=== PATIENT | female | born 1945 | race Caucasian/White ===

== ENCOUNTER 2018-02-10 14:10 | Inpatient (IN) | payer MEDICARE, SELFPAY ==
[2018-02-10] VITALS (10 sets, daily range): BP systolic 175–208; BP diastolic 51–86; PULSE 64–96; RESP 17–25; TEMP 36.6–36.8; O2SAT 96–100; BMI 29.1; BMI 29.4; BMI 29.5
--- NOTE | 2018-02-10 14:25 | EKG12_ITS ---
Test Reason : FALL Blood Pressure : / mmHG Vent. Rate : 082 BPM Atrial Rate : 082 BPM P-R Int : 176 ms QRS Dur : 086 ms QT Int : 378 ms P-R-T Axes : 040 -06 057 degrees QTc Int : 441 ms Normal sinus rhythm Nonspecific ST abnormality Abnormal ECG Confirmed by GRAEME MOISE, ROSELYN ([id number]), commissioning editor TOMY RIGGS ([id number] on 02/15/2018 3:43:17 PM Referred By: MIGUEL Confirmed By:ROSELYN BEDOLLA MD
--- NOTE | 2018-02-10 14:25 | RAD_ITS ---
STUDY: X-RAY CHEST REASON FOR EXAM: Female, 72 years old. Fall. TECHNIQUE: Single AP portable view of the chest. COMPARISON: None. FINDINGS: The lungs are clear and expanded. There is no demonstrated pleural abnormality. Normal size heart. Normal mediastinum and concetta. Normal visualized pulmonary arteries. Normal visualized aortic arch and descending thoracic aorta. Normal visualized thoracic spine. Normal visualized ribs, clavicles, and shoulders. There is no demonstrated abnormality of the visualized soft tissue structures of the upper abdomen. RAD/Chest 1 View (Portable) IMPRESSION: Normal x-ray examination of the chest. Electronically Signed: Sai Casey MD at 15:15 EDT , Service support ,
--- NOTE | 2018-02-10 14:25 | CT_ITS ---
STUDY: CT BRAIN WITHOUT CONTRAST REASON FOR EXAM: Female, 72 years old. Fall. RADIATION DOSAGE (If Supplied By Facility): CTDIvol = ( 44.99 ) mGy, DLP = ( 762.36 ) mGycm TECHNIQUE: Transaxial CT imaging of the brain was performed without administration of intravenous contrast material. Individualized dose optimization techniques were used for this CT. COMPARISON: None. FINDINGS: Prominent soft tissue swelling seen over the left forehead. No underlying fracture. Normal size ventricles and extra-axial spaces for the patient's age. Normal white matter tracts of the cerebral hemispheres. Normal basal ganglia and thalami. Normal brainstem. Normal cerebellum. There is no intracranial hemorrhage. There are no findings of an acute ischemic infarction. Normal visualized paranasal sinuses. CT/Brain/Head without Contrast IMPRESSION: Normal unenhanced CT scan of the brain. Electronically Signed: Sai Casey MD at 14:57 EDT , Service support ,
--- NOTE | 2018-02-10 14:26 | CT_ITS ---
STUDY: CT CERVICAL SPINE WITHOUT CONTRAST REASON FOR EXAM: Female, 72 years old. Fall. Confusion. RADIATION DOSAGE (If Supplied By Facility): CTDIvol = ( 15.31 ) mGy, DLP = ( 316.72 ) mGycm TECHNIQUE: High resolution transaxial imaging was performed without contrast material. Sagittal and coronal images were reconstructed. Individualized dose optimization techniques were used for this CT. COMPARISON: None FINDINGS: No definite acute fracture/dislocation. The cervical junction is intact. C1-C2 articulation is intact. There is reversal of curvature. There is normal alignment. Facet joints are intact at all levels bilaterally. No jumped facets. There is multilevel spondyloarthropathy. Multilevel mild degenerative disc changes are seen most pronounced at C5-C6. Visualized paraspinal soft tissues and structures are unremarkable. CT/Spine Cervical without Contras IMPRESSION: There is no definite acute fracture/dislocation. Degenerative changes. Electronically Signed: Sai Casey MD at 15:14 EDT , Service support ,
[2018-02-10 14:37] LABS: Absolute Lymphocyte Count 3.24 X10^3/ul (0.83-4.51); Absolute Neutrophil Count 2.8 X10^3/uL (2.0-7.7); Basophil# 0.02 X10^3/uL; Basophil% 0.3 % (0-1); Eosinophil# 0.11 X10^3/uL; Eosinophils% 1.6 % (0-5); Hemoglobin 13.8 g/dl (12.0-15.0); Lymphocyte # 3.24 X10^3/ul (4.0); Lymphocyte % 48.6 % (19-41); Mean Corp Hgb Conc 33.7 g/gl (32-36); Mean Corpuscular Volume 89.1 fL (81-99); Mean Platelet Vol. 11.6 fl (6.2-12.0); Monocyte# 0.55 X10^3/uL; Monocyte% 8.2 % (0-10); Neutrophil # 2.75 X10^3/uL (2.7-7.7); Neutrophil % 41.3 % (47-70); Platelet Count 201 K/mm3 (150-450); RBC Distribution Width CV 13.3 % (11.6-14.6); RBC Distribution Width SD 43.1 fl (35.1-43.9); White Blood Count 6.7 K/mm3 (4.4-11.0)
[2018-02-10 14:38] LABS: POSITIVE COUNT NO; POSITIVE DIFFERENTIAL NO; POSITIVE MORPHOLOGY NO
[2018-02-10] MEDS: 0.9% Normal Saline 1,000 ML 150 ML IV (14:55)
[2018-02-10 14:56] LABS: Anion Gap 9 (5-15); BUN 13 mg/dL (7-18); BUN/Creat Ratio 13.9 RATIO (10-20); Calcium,Total 9.2 mg/dL (8.5-10.1); Chloride 106 mmol/L (98-107); Creatinine, Serum 0.93 mg/dL (0.55-1.02); EST Glomerular Filtration Rate 63 mL/min (>60); Est Glom Filt Rate - Afr Amer 76 mL/min (>60); Estimated Creatinine Clearance 44.52 ml/min; Glucose 115 mg/dL (74-106); Potassium 3.6 mmol/L (3.5-5.1); Sodium Level 143 mmol/L (136-145)
[2018-02-10 15:02] LABS: Alcohol, Blood (Medical)-Serum < 3.0 mg/dL
[2018-02-10 16:01] LABS: Mucous, Urine 0 SEEN /hpf (<or=2+)
[2018-02-10 16:05] LABS: Color, Urine Yellow (Yellow); Glucose, Dipstick Normal (Normal); Ketone-Dipstick 5 mg/dl (Negative); Leukocyte Esterase-Dipstick 25 /ul (Negative); Nitrite-Dipstick Positive (Negative); Occult Blood-Urine 25 /ul (Negative); Protein-Dipstick Negative (Negative); Urine Bilirubin Dipstick Negative (Negative); Urine Urobilinogen Normal (Normal)
[2018-02-10 16:08] LABS: Urine Clarity Sl Cloudy (Clear)
[2018-02-10 16:45] LABS: Bacteria 1+ /hpf (None Seen); Red Blood Cells-Urine 0-5 SEEN /hpf (0-5); Squamous Epithelial Cells - UA 0-5 SEEN /hpf (5-10); White Blood Cells 0-5 SEEN /hpf (0-5)
--- NOTE | 2018-02-10 17:01 | ED.DCSUM_ITS ---
- ER Visit Summary Date of Service: 02/10/18 Chief Complaint: [Head injury] History of Present Illness: The patient is a 72 F [presents the emergency department via EMS with a head injury. Patient apparently was at work and was found outside unconscious. It is unclear what happened. Patient does not know what happened and keeps asking the same questions over and over again. Patient tells me she has a history of high cholesterol and hypertension. Patient denies being on any blood thinners. She denies any neck pain. She denies any chest pain.] Physical Examination: [HEENT-PERRLA, EOMI. Cranial nerves II through XII grossly intact. TMs clear. Mucous membranes moist. No adenopathy. Patient has a forehead hematoma with 1 cm laceration. Patient has a 1 cm laceration over her nose. Patient has a 1 cm laceration lower lip. No dental injury noted. Cardiovascular-regular rate and rhythm without murmur or ectopy Lungs-clear to auscultation, chest wall stable without crepitus or subcu emphysema Abdomen-normoactive bowel sounds, soft, nontender, no rebound or rigidity, no peritoneal signs. Extremities-intact ?4, normal range of motion, normal pulses, atraumatic] Test Results: [EKG obtained on arrival shows sinus rhythm with a ventricular rate of [address] changes. CBC with differential showed a white count of 6.7, heme globin 13.8, hematocrit 41, platelets 201. Chemistries unremarkable. Troponin less than 0.015. Alcohol was less than 3. Chest x-ray showed nothing acute. CT brain showed nothing acute. CT C-spine showed no fractures] Emergency Department Course and Treatment: [Laceration repairs-wound sterilely draped and prepped. Wound cleansed with Shur-Clens and irrigated with copious saline. Using 1% lidocaine a total of 3 cc used combined to anesthetize the laceration of her forehead, nose, and lower lip. Using 6-0 nylon a total of 3 single interrupted sutures placed to the nose 1 interrupted suture placed to the forehead and one interrupted suture placed to the lower lip. Patient tolerated procedure well.] Treatment Plan: [Admit] Disposition: [Admit] Impression: [Syncope Concussion Facial lacerations-simple repair] This note was generated with [employer] software. It may contain incorrect words, spelling, and punctuation that were not noted in review of the chart prior to signing ED Disposition - Plan for ED Patient: Chief Complaint: Head Injury Referrals: Care Physician,No Primary [Primary Care Provider] -
--- NOTE | 2018-02-10 17:05 | PCM.HP.STD ---
Problem List (1) Elevated blood pressure reading Status: Acute (2) Head injury Status: Acute (3) Syncope Status: Acute History of Present Illness Date of Admission: 02/10/18 Chief Complaint: Fall, head injury. The patient is a 72 year old F with no significant past medical history according to the patient was brought to the emergency department by EMS because she was found unconscious in the parking lot at his workplace. It is unclear what happened exactly. At this time, patient is alert and oriented ?2, disoriented to time but she is not aware of what happened. He is not able to provide detailed history. She does not have a primary care physician. she remembers that she was at work this morning but she does not recall any details about being unresponsive or falling. She denied any chest pain or shortness of breath this morning. Denied dizziness or lightheadedness. Denied cough or sputum production. Denies fever chills. She denied any neck pain, or leg pain. She denied abdominal pain, nausea vomiting. She kept asking the same question what happened and where it happened. She states that she does not take any prescription medications and she takes lots of vitamins and supplements. She mentioned that her blood pressure sometimes elevated, sometimes goes up to 160 systolic. She never been treated for it. In the emergency department, her blood pressure was elevated, other vital signs were stable. Her routine blood work is unremarkable. The plan is negative. EKG revealed normal sinus rhythm without evidence of acute ischemic changes. Chest x-ray showed no acute infiltrate, consolidation or effusion. CT scan brain showed no acute hemorrhage or infarction. CT cervical spine showed no acute fractures or dislocations. Urinalysis revealed cloudy urine, positive for nitrite, 0-5 WBCs and 1+ bacteria. Blood alcohol level less than 3. She is being admitted for syncope, head injury, concussion, frontal scalp hematoma, facial laceration and probable acute cystitis. Past Medical History Allergies No Known Allergies Allergy (Verified 02/10/18 14:15) Home Medications: Ambulatory Orders Medication Instructions Recorded Aspirin [Aspirin, Baby] 81 mg PO DAILY@0800 02/10/18 Glucosamine/D3/Boswellia Olimpia 1 each PO DAILY 02/10/18 [Glucosamine Daily Complex Tab] Magnesium 1 tab PO DAILY 02/10/18 Vitamin D 1 tab PO DAILY 02/10/18 Vitamin E 1 tab PO DAILY 02/10/18 Surgical History: cholecystectomy, - - Tubal ligation. Psychiatric History: No pertinent psych hx [employer] History: No pertinent [employer] history Lives: Alone Smoking Status: Never smoker Alcohol: None Drugs: None - *Family History Maternal History Items: No pertinent history Paternal History Items: No pertinent history Review of Systems Constitutional: Denies: Anorexia, Chills, Fever, Weakness Eyes: Denies: Blurred vision, Double vision, Drainage, Redness HEENT: Denies: Difficulty Hearing, Ear Pain, Eye Pain, Nasal Congestion, Sore Throat Cardiovascular: Denies: Chest Pain, Chest Pressure, Edema, Heaviness, Orthopnea, Palpitations, Paroxysmal Noc. Dyspnea Respiratory: Denies: Cough, Pleuritic Pain, Shortness of Breath Gastrointestinal: Denies: Abdominal Pain, Constipation, Diarrhea, Hematemesis, Hematochezia, Nausea, Melena, Vomiting Genitourinary: Denies: Dysuria, Frequency, Hematuria Musculoskeletal: Denies: Arm Pain, Back Pain, Foot Pain Skin: Denies: Dryness, Rash Neurological: Denies: Balance problems, Blurred vision, Double vision, Slurred speech, Confusion, Focal weakness, Incoordination, Numbness Psychiatric: Denies: Anxiety, Depression Endocrine: Denies: Change in Body Habitus, Polydipsia VTE Information - Inpt Only VTE Present on Admission: No VTE Mechan Device Prophylaxis: None VTE Pharm Prophylaxis ordered?: Yes Patient Problems: Active and Suspected Problems Elevated blood pressure reading (Acute) Head injury (Acute) Syncope (Acute) - Physical Exam General: Alert, Cooperative, No apparent distress, - - Oriented to self and place, disoriented to time. HEENT: PERRLA, EOMI, - - Traumatic, frontal scalp hematoma, laceration over the nasal bridge and chin. Oral: Moist Mucosa, No Gingival or Mucosal Lesions/ Ulcerations Neck: Supple, No JVD, Negative Carotid Bruits, Trachea Midline, Thyroid Normal Size and Texture Lungs: Clear to auscultation, No rhonchi, No wheeze, No rales, Diminished Cardiovascular: Regular rate, Regular Rhythm, Normal S1, Normal S2, No murmurs, PMI Normal Abdomen: Bowel Sounds Present, Soft, Non Tender, Non-Distended, No Hepato-splenomegaly Extremities: No clubbing, No cyanosis, No edema Skin: No rashes, No breakdown Lymphatic: No Cervical, Supraclavicular, or Inguinal Adenopathy Neurological: Cranial nerves II-XII grossly intact, Motor Exam 5/5 strength throughout Psych/Mental Status: Normal Affect, Appropriate Vital Signs Temp Pulse Resp BP Pulse Ox 98 F 89 17 182/85 H 96 02/10/18 14:10 02/10/18 16:48 02/10/18 16:48 02/10/18 16:48 02/10/18 16:48 Oxygen Delivery Method Room Air Weight: 159 lb 6.307 oz Body Mass Index (BMI) 29.1 Laboratory Tests Past 24 Hrs 02/10/18 02/10/18 02/10/18 14:30 14:30 14:30 WBC 6.7 RBC 4.60 Hgb 13.8 Hct 41.0 MCV 89.1 MCH 30.0 MCHC 33.7 RDW 13.3 RDW Differential 43.1 Plt Count 201 MPV 11.6 Immature Gran % (Auto) 0.000 Neut % (Auto) 41.3 L Lymph % (Auto) 48.6 H [place] % (Auto) 8.2 Eos % (Auto) 1.6 Baso % (Auto) 0.3 Absolute Neuts (auto) 2.8 Absolute Lymphs (auto) 3.24 Total Counted Not Reportable Sodium 143 Potassium 3.6 Chloride 106 Carbon Dioxide 28.0 Anion Gap 9 BUN 13 Creatinine 0.93 Estim Creat Clear Calc 44.52 Est GFR (MDRD) Af Amer 76 Est GFR (MDRD) Non-Af 63 BUN/Creatinine Ratio 13.9 Glucose 115 H Calcium 9.2 Troponin I < 0.015 Urine Color Urine Clarity Urine pH Ur Specific [place] Urine Protein Urine Glucose (UA) Urine Ketones Urine Occult Blood Urine Nitrite Urine Bilirubin Urine Urobilinogen Ur Leukocyte Esterase Urine RBC Urine WBC Ur Squamous Epith Cells Urine Bacteria Urine Mucus Ethyl Alcohol < 3.0 02/10/18 15:50 WBC RBC Hgb Hct MCV MCH MCHC RDW RDW Differential Plt Count MPV Immature Gran % (Auto) Neut % (Auto) Lymph % (Auto) [place] % (Auto) Eos % (Auto) Baso % (Auto) Absolute Neuts (auto) Absolute Lymphs (auto) Total Counted Sodium Potassium Chloride Carbon Dioxide Anion Gap BUN Creatinine Estim Creat Clear Calc Est GFR (MDRD) Af Amer Est GFR (MDRD) Non-Af BUN/Creatinine Ratio Glucose Calcium Troponin I Urine Color Yellow Urine Clarity Sl Cloudy Urine pH 7.0 Ur Specific [place] 1.010 Urine Protein Negative Urine Glucose (UA) Normal Urine Ketones 5 H Urine Occult Blood 25 H Urine Nitrite Positive H Urine Bilirubin Negative Urine Urobilinogen Normal Ur Leukocyte Esterase 25 H Urine RBC 0-5 SEEN Urine WBC 0-5 SEEN Ur Squamous Epith Cells 0-5 SEEN Urine Bacteria 1+ Urine Mucus 0 SEEN Ethyl Alcohol Clinical Impression(s) from Imaging Studies Brain CT 02/10/18 14:25 IMPRESSION: Normal unenhanced CT scan of the brain. Electronically Signed: Sai Casey MD at 14:57 EDT , Service support , Chest X-Ray 02/10/18 14:25 IMPRESSION: Normal x-ray examination of the chest. Electronically Signed: Sai Casey MD at 15:15 EDT , Service support , Cervical Spine CT 02/10/18 14:26 IMPRESSION: There is no definite acute fracture/dislocation. Degenerative changes. Electronically Signed: Sai Casey MD at 15:14 EDT , Service support , Assessment/Plan All Active Problems Elevated blood pressure reading (Acute) Head injury (Acute) Syncope (Acute) This is a 72 years old female patient presented to the emergency room because of syncope, fall, head injury and facial laceration found to have probable acute cystitis. #1 syncope: Unclear etiology, history is also unclear. At this time, it is unclear if this is due to cardiogenic or neurogenic. EKG revealed normal sinus rhythm without evidence of acute ischemic changes or cardiac arrhythmias. CT scan brain was unremarkable. Blood pressure is elevated, other vital signs are stable. Routine blood work is unremarkable. Troponin is negative. Plan: Admit to PCU, cardiac monitoring, 2D echocardiogram, carotid Doppler, IV fluids, orthostatic vitals, PT OT evaluation and treatment. #2 fall/head injury/facial laceration/frontal scalp hematoma/head concussion/confusion: CT scan brain without acute findings, no intracranial hemorrhage. CT cervical spine showed no acute fractures or dislocations. She has multiple small lacerations on the forehead, over the nasal bridge and chin and those were sutured. Patient has been disappointed to time, oriented ?2. She has no focal deficit. Unknown baseline mental status or orientation. Plan for close monitoring, pain control, Tylenol as needed. If patient remained disoriented, may need to do MRI brain. #3 probable acute cystitis: Urinalysis reviewed. She is asymptomatic. Plan to start IV Rocephin empirically, urine culture. #4 elevated blood pressure: Blood pressure is elevated in the 180 systolic. Patient stated that blood pressure is usually anywhere from 120s-160s systolic, never been on antihypertensive medications. Plan to start Norvasc, IV hydrazine as needed #5 DVT prophylaxis: Subcu Lovenox This note was generated with [employer] dictation software. It may contain incorrect words, spelling, and punctuation that were not noted in checking the note before signing. Code Visit Inpatient E&M: 47443 Init Hosp L3
--- NOTE | 2018-02-10 17:16 | HP.PCM_ITS ---
Problem List (1) Elevated blood pressure reading Status: Acute (2) Head injury Status: Acute (3) Syncope Status: Acute History of Present Illness Date of Admission: 02/10/18 Chief Complaint: Fall, head injury. The patient is a 72 year old F with no significant past medical history according to the patient was brought to the emergency department by EMS because she was found unconscious in the parking lot at his workplace. It is unclear what happened exactly. At this time, patient is alert and oriented ?2, disoriented to time but she is not aware of what happened. He is not able to provide detailed history. She does not have a primary care physician. she remembers that she was at work this morning but she does not recall any details about being unresponsive or falling. She denied any chest pain or shortness of breath this morning. Denied dizziness or lightheadedness. Denied cough or sputum production. Denies fever chills. She denied any neck pain, or leg pain. She denied abdominal pain, nausea vomiting. She kept asking the same question what happened and where it happened. She states that she does not take any prescription medications and she takes lots of vitamins and supplements. She mentioned that her blood pressure sometimes elevated, sometimes goes up to 160 systolic. She never been treated for it. In the emergency department, her blood pressure was elevated, other vital signs were stable. Her routine blood work is unremarkable. The plan is negative. EKG revealed normal sinus rhythm without evidence of acute ischemic changes. Chest x-ray showed no acute infiltrate, consolidation or effusion. CT scan brain showed no acute hemorrhage or infarction. CT cervical spine showed no acute fractures or dislocations. Urinalysis revealed cloudy urine, positive for nitrite, 0-5 WBCs and 1+ bacteria. Blood alcohol level less than 3. She is being admitted for syncope, head injury, concussion, frontal scalp hematoma, facial laceration and probable acute cystitis. Past Medical History Allergies No Known Allergies Allergy (Verified 02/10/18 14:15) Home Medications: Ambulatory Orders Medication Instructions Recorded Aspirin [Aspirin, Baby] 81 mg PO DAILY@0800 02/10/18 Glucosamine/D3/Boswellia Olimpia 1 each PO DAILY 02/10/18 [Glucosamine Daily Complex Tab] Magnesium 1 tab PO DAILY 02/10/18 Vitamin D 1 tab PO DAILY 02/10/18 Vitamin E 1 tab PO DAILY 02/10/18 Surgical History: cholecystectomy, - - Tubal ligation. 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 Dyspnea Respiratory: Denies: Cough, Pleuritic Pain, Shortness of Breath Gastrointestinal: Denies: Abdominal Pain, Constipation, Diarrhea, Hematemesis, Hematochezia, Nausea, Melena, Vomiting Genitourinary: Denies: Dysuria, Frequency, Hematuria Musculoskeletal: Denies: Arm Pain, Back Pain, Foot Pain Skin: Denies: Dryness, Rash Neurological: Denies: Balance problems, Blurred vision, Double vision, Slurred speech, Confusion, Focal weakness, Incoordination, Numbness Psychiatric: Denies: Anxiety, Depression Endocrine: Denies: Change in Body Habitus, Polydipsia VTE Information - Inpt Only VTE Present on Admission: No VTE Mechan Device Prophylaxis: None VTE Pharm Prophylaxis ordered?: Yes Patient Problems: Active and Suspected Problems Elevated blood pressure reading (Acute) Head injury (Acute) Syncope (Acute) - Physical Exam General: Alert, Cooperative, No apparent distress, - - Oriented to self and place, disoriented to time. HEENT: PERRLA, EOMI, - - Traumatic, frontal scalp hematoma, laceration over the nasal bridge and chin. Oral: Moist Mucosa, No Gingival or Mucosal Lesions/ Ulcerations Neck: Supple, No JVD, Negative Carotid Bruits, Trachea Midline, Thyroid Normal Size and Texture Lungs: Clear to auscultation, No rhonchi, No wheeze, No rales, Diminished Cardiovascular: Regular rate, Regular Rhythm, Normal S1, Normal S2, No murmurs, PMI Normal Abdomen: Bowel Sounds Present, Soft, Non Tender, Non-Distended, No Hepato- splenomegaly Extremities: No clubbing, No cyanosis, No edema Skin: No rashes, No breakdown Lymphatic: No Cervical, Supraclavicular, or Inguinal Adenopathy Neurological: Cranial nerves II-XII grossly intact, Motor Exam 5/5 strength throughout Psych/Mental Status: Normal Affect, Appropriate Vital Signs Temp Pulse Resp BP Pulse Ox 98 F 89 17 182/85 H 96 02/10/18 14:10 02/10/18 16:48 02/10/18 16:48 02/10/18 16:48 02/10/18 16:48 Oxygen Delivery Method Room Air Weight: 159 lb 6.307 oz Body Mass Index (BMI) 29.1 Laboratory Tests Past 24 Hrs 02/10/18 02/10/18 02/10/18 14:30 14:30 14:30 WBC 6.7 RBC 4.60 Hgb 13.8 Hct 41.0 MCV 89.1 MCH 30.0 MCHC 33.7 RDW 13.3 RDW Differential 43.1 Plt Count 201 MPV 11.6 Immature Gran % (Auto) 0.000 Neut % (Auto) 41.3 L Lymph % (Auto) 48.6 H Pratt % (Auto) 8.2 Eos % (Auto) 1.6 Baso % (Auto) 0.3 Absolute Neuts (auto) 2.8 Absolute Lymphs (auto) 3.24 Total Counted Not Reportable Sodium 143 Potassium 3.6 Chloride 106 Carbon Dioxide 28.0 Anion Gap 9 BUN 13 Creatinine 0.93 Estim Creat Clear Calc 44.52 Est GFR (MDRD) Af Amer 76 Est GFR (MDRD) Non-Af 63 BUN/Creatinine Ratio 13.9 Glucose 115 H Calcium 9.2 Troponin I < 0.015 Urine Color Urine Clarity Urine pH Ur Specific [place] Urine Protein Urine Glucose (UA) Urine Ketones Urine Occult Blood Urine Nitrite Urine Bilirubin Urine Urobilinogen Ur Leukocyte Esterase Urine RBC Urine WBC Ur Squamous Epith Cells Urine Bacteria Urine Mucus Ethyl Alcohol < 3.0 02/10/18 15:50 WBC RBC Hgb Hct MCV MCH MCHC RDW RDW Differential Plt Count MPV Immature Gran % (Auto) Neut % (Auto) Lymph % (Auto) Pratt % (Auto) Eos % (Auto) Baso % (Auto) Absolute Neuts (auto) Absolute Lymphs (auto) Total Counted Sodium Potassium Chloride Carbon Dioxide Anion Gap BUN Creatinine Estim Creat Clear Calc Est GFR (MDRD) Af Amer Est GFR (MDRD) Non-Af BUN/Creatinine Ratio Glucose Calcium Troponin I Urine Color Yellow Urine Clarity Sl Cloudy Urine pH 7.0 Ur Specific [place] 1.010 Urine Protein Negative Urine Glucose (UA) Normal Urine Ketones 5 H Urine Occult Blood 25 H Urine Nitrite Positive H Urine Bilirubin Negative Urine Urobilinogen Normal Ur Leukocyte Esterase 25 H Urine RBC 0-5 SEEN Urine WBC 0-5 SEEN Ur Squamous Epith Cells 0-5 SEEN Urine Bacteria 1+ Urine Mucus 0 SEEN Ethyl Alcohol Clinical Impression(s) from Imaging Studies Brain CT 02/10/18 14:25 IMPRESSION: Normal unenhanced CT scan of the brain. Electronically Signed: Sai Casey MD at 14:57 EDT , Service support , Chest X-Ray 02/10/18 14:25 IMPRESSION: Normal x-ray examination of the chest. Electronically Signed: Sai Casey MD at 15:15 EDT , Service support , Cervical Spine CT 02/10/18 14:26 IMPRESSION: There is no definite acute fracture/dislocation. Degenerative changes. Electronically Signed: Sai Casey MD at 15:14 EDT , Service support , Assessment/Plan All Active Problems Elevated blood pressure reading (Acute) Head injury (Acute) Syncope (Acute) This is a 72 years old female patient presented to the emergency room because of syncope, fall, head injury and facial laceration found to have probable acute cystitis. #1 syncope: Unclear etiology, history is also unclear. At this time, it is unclear if this is due to cardiogenic or neurogenic. EKG revealed normal sinus rhythm without evidence of acute ischemic changes or cardiac arrhythmias. CT scan brain was unremarkable. Blood pressure is elevated, other vital signs are stable. Routine blood work is unremarkable. Troponin is negative. Plan: Admit to PCU, cardiac monitoring, 2D echocardiogram, carotid Doppler, IV fluids , orthostatic vitals, PT OT evaluation and treatment. #2 fall/head injury/facial laceration/frontal scalp hematoma/head concussion/ confusion: CT scan brain without acute findings, no intracranial hemorrhage. CT cervical spine showed no acute fractures or dislocations. She has multiple small lacerations on the forehead, over the nasal bridge and chin and those were sutured. Patient has been disappointed to time, oriented ?2. She has no focal deficit. Unknown baseline mental status or orientation. Plan for close monitoring, pain control, Tylenol as needed. If patient remained disoriented, may need to do MRI brain. #3 probable acute cystitis: Urinalysis reviewed. She is asymptomatic. Plan to start IV Rocephin empirically, urine culture. #4 elevated blood pressure: Blood pressure is elevated in the 180 systolic. Patient stated that blood pressure is usually anywhere from 120s-160s systolic, never been on antihypertensive medications. Plan to start Norvasc, IV hydrazine as needed #5 DVT prophylaxis: Subcu Lovenox This note was generated with [employer] dictation software. It may contain incorrect words, spelling, and punctuation that were not noted in checking the note before signing. Code Visit Inpatient E&M: 09039 Init Hosp L3
--- NOTE | 2018-02-10 18:25 | CDU_ITS ---
Reason For Study: syncope Rt. Velocities/BP Lt. Velocities/BP Prox CCA 115/22.8 cm/sec. Prox CCA 134/21.7 cm/sec. Mid CCA 106/23.6 cm/sec. Mid CCA 123/19.9 cm/sec. Dist CCA 90.4/17.3 cm/sec. Dist CCA 93.8/19.3 cm/sec. Prox ICA 79.2/15.8 cm/sec. Prox ICA 94.4/18.2 cm/sec. Mid ICA 88.5/22.3 cm/sec. Mid ICA 82.7/22.9 cm/sec. Dist ICA 111/35.2 cm/sec. Dist ICA 104/27.6 cm/sec. Rt. ICA/CCA = 1.0. Lt. ICA/CCA = .8. Prox ECA 164/16.7 cm/sec. Prox ECA 193/15.7 cm/sec. Rt. Vert. 61.6/14.1 cm/sec. Lt. Vert. 56.3/11.1 cm/sec. Right Extracranial There is intimal thickening but no significant atherosclerotic plaque noted in the right common carotid artery. There is homogeneous, smooth atherosclerotic plaque noted in the right internal carotid artery. There is intimal thickening but no significant atherosclerotic plaque noted in the right external carotid artery. Antegrade flow is noted in the right vertebral artery. Left Extracranial There is homogeneous, smooth atherosclerotic plaque noted in the left common carotid artery. There is homogeneous, smooth atherosclerotic plaque noted in the left internal carotid artery. There is homogeneous, smooth atherosclerotic plaque noted in the left external carotid artery. Antegrade flow is noted in the left vertebral artery. Procedure Carotid Duplex [id number]. The exam was diagnostic. Exam performed portable in patient room. Interpretation Summary Minimal smooth plague within the proximal right internal carotid with <50% stenosis. Moderate disease right external carotid Minimal smooth plague within the left proximal internal carotid with <50% stenosis. Moderate disease left external carotid Patent and antegrade vertebrals bilaterally. Ordering Physician: Jake Zuluaga Performed By: Amos Elaine RVT
--- NOTE | 2018-02-10 18:25 | ECHOD_ITS ---
Reason For Study: SYNCOPE Procedure This was a 2D Doppler, Color Flow transthoracic echocardiogram. The exam was of adequate technical quality. Exam performed portable in patient room. Left Ventricle Normal LV size. Left ventricular systolic function is normal. The estimated ejection fraction is 65 %. Normal diastology for age. No regional wall motion abnormalities noted. Right Ventricle Normal RV size. Normal systolic function. Atria Normal left atrium. Normal right atrium. No doppler evidence for ASD. Mitral Valve There is no mitral annular calcification. Normal mitral valve. Trivial mitral valve insufficiency. Tricuspid Valve Normal tricuspid valve. Mild tricuspid valve insufficiency. Right ventricular systolic pressure estimated to be 31 mmHg. Aortic Valve Trisinus/trileaflet aortic valve. Mild focal aortic valve thickening. Trivial aortic valve insufficiency. Pulmonic Valve The pulmonic valve is not well visualized. Great Vessels Normal sized aortic root. Pericardium/Pleural Small pericardial effusion. There are no echocardiographic indications of cardiac tamponade. MMode/2D Measurements & Calculations LVIDd: 4.2 cm IVSd: 0.79 cm Ao root diam: 2.8 cm LVIDs: 2.1 cm LVPWd: 0.88 cm RVDd: 3.2 cm FS: 51.1 % LAV(MOD-bp): 39.8 ml LA A4 area: 18.4 cm2 RA A4 area: 10.8 cm2 LAV(MOD-bp) Indexed: 23.2 ml/m2 LAV(MOD-sp2): 27.4 ml LAV(MOD-sp4): 45.4 ml Time Measurements MV dec time: 0.21 sec Doppler Measurements & Calculations MV E max remy: 89.2 cm/sec Lat Peak E' Remy: 7.8 cm/sec Med Peak E' Remy: 7.4 cm/sec MV A max remy: 114.4 cm/sec E/E' lat: 11.4 E/E' med: 12.1 MV E/A: 0.78 Ao V2 max: 171.4 cm/sec AI max remy: 263.4 cm/sec LV V1 max: 140.0 cm/sec Ao max P.8 mmHg AI max P.8 mmHg LV V1 max P.8 mmHg AI dec slope: 217.8 cm/sec2 AI P1/2t: 354.2 msec TR max remy: 261.2 cm/sec TR max P.7 mmHg Interpretation Summary Left ventricular systolic function is normal. The estimated ejection fraction is 65 %. Trivial mitral valve insufficiency. Mild tricuspid valve insufficiency. Mild focal aortic valve thickening. Trivial aortic valve insufficiency. Small pericardial effusion. There are no echocardiographic indications of cardiac tamponade. Right ventricular systolic pressure estimated to be 31 mmHg. Normal diastology for age. Ordering Physician: Jake Zuluaga Performed By: Nguyen Avitia RDCS, RVT
[2018-02-10] MEDS: 0.9% Normal Saline 1,000 ML 75 ML IV (19:55)
[2018-02-10] MEDS: Ceftriaxone 1 GM/50 ML BAG IV (19:55)
[2018-02-11] VITALS (14 sets, daily range): BP systolic 124–151; BP diastolic 55–75; PULSE 69–90; RESP 15–18; TEMP 36.6–36.9; O2SAT 94–97
[2018-02-11] MEDS: 0.9% Normal Saline 1,000 ML 75 ML IV ×2 (10:40→23:50)
[2018-02-11] MEDS: Enoxaparin 40 MG/0.4 ML Syringe SC (10:40)
[2018-02-11] MEDS: amLODIPine 5 MG Tablet PO (10:41)
[2018-02-11] MEDS: Ceftriaxone 1 GM/50 ML BAG IV (10:44)
--- NOTE | 2018-02-11 10:51 | CASEMGMT ---
Face to Face with patient for initial transition planning/care coordination assessment. RAJENDRA MARIE introduced self and role at [facility], pt voices understanding and consents to assessment at this time. Pt is sitting up in bed in no distress at this time. Pt is A/O cx4 at this time and answers all questions appropriately at this time. Care providers, pharmacy, and demographics verified. See attached link. Pt voices no further concerns/needs at this time. Advised pt to ask for CM if any further questions/concerns/needs arise, voices understanding. PLAN: [place] RAJENDRA MARIE
--- NOTE | 2018-02-11 11:17 | MRI_ITS ---
STUDY: MRI BRAIN WITHOUT CONTRAST REASON FOR EXAM: Female, 72 years old. Disorientation, hypertension TECHNIQUE: Standardized multiplanar fat and water weighted pulse sequences were obtained. COMPARISON: CT the brain on February 10, 2018 FINDINGS: Normal size of the ventricles and extra-axial spaces for the patient's age. Normal white matter tracts of the supratentorial brain. Normal bilateral basal ganglia. Normal thalami. There is no extra-axial fluid accumulation. Normal flow voids within the major intracranial circulation suggesting patency by spin echo criteria. Normal sella turcica, pituitary gland, infundibular stalk, optic chiasm and hypothalamus. Normal tectal plate and pineal gland. Normal midbrain, abiodun and medulla. Normal cerebellum. Normal basal cisterns. Normal bilateral temporal bones. Normal bilateral internal auditory canals. Signal dropout is seen within the inferior frontal lobes bilaterally on gradient echo weighted imaging sequence which may be consistent with hemosiderin due to hemorrhagic contusions. Post surgical changes of the orbits.. Mild mucosal thickening of the maxillary and ethmoid sinuses.. Soft tissue swelling anterior to the frontal bone without evidence for skull fracture.. Normal visualized soft tissue structures. Normal visualized upper cervical spine. MRI/Brain without Contrast IMPRESSION: Findings which may be consistent with subtle post traumatic hemorrhagic contusions within the inferior frontal lobes Electronically Signed: Dwight Hartmann MD at 16:17 EDT , Service support ,
--- NOTE | 2018-02-11 14:49 | CHAPLAIN ---
Type of Pastoral Visit _x__ Initial Visit ___ Follow-up Visit ___ On-call Visit ___ General Patient Visit ___ Spiritual Assessment ___ Family Conference ___ Bereavement ___ Rapid Response ___ Code Blue ___ Other (describe below) Pastoral Care Referral From _x__ Patient ___ Family ___ Nurse ___ Physician ___ Highway Landscape Architect ___ Recruiting Scheduler ___ Other (describe below) Sacrament/Intervention _x__ Active listening ___ Anointing ___ Gnosticist ___ Bereavement ___ Communion ___ Birdie exploration ___ ___ Life review _x__ Prayer ___ Reconciliation ___ Sacrament of Sick ___ Supportive presence ___ Wedding ___ Other (describe below) Pastoral Comments many family members with patient; tests being conducted to find cause; pt remains upbeat in her conversation and says she will learn something from this event in her life
--- NOTE | 2018-02-11 15:15 | PCM.PROGNOTE ---
<Laney Wright - Last Filed: 02/11/18 15:22> Patient Problems: Active and Suspected Problems Elevated blood pressure reading (Acute) Head injury (Acute) Syncope (Acute) Subjective: Patient seen and examined. Light headedness. He denies chest pain, palpitations. States she has never had a syncopal episode before. Denies current complaints. - Physical Exam General: Alert, Oriented x3, Cooperative, No apparent distress HEENT: Atraumatic, PERRLA, EOMI, Normocephalic Oral: Moist Mucosa Neck: Supple, No JVD, Negative Carotid Bruits Lungs: Clear to auscultation, Normal air movement Cardiovascular: Regular rate, Regular Rhythm, Normal S1, Normal S2, No murmurs Abdomen: Bowel Sounds Present, Soft, Non Tender, Non-Distended Extremities: No clubbing, No cyanosis, No edema, Capillary Refill Less than 3 Seconds Skin: - - Bilateral eye ecchymosis, multiple facial abrasions. Musculoskeletal: No Tenderness to Palpation of Joints or Extremities Neurological: Cranial nerves II-XII grossly intact, Neuro grossly intact Psych/Mental Status: Normal Affect, Appropriate Vital Signs Temp Pulse Resp BP Pulse Ox 97.8 F 90 15 150/62 H 97 02/11/18 10:34 02/11/18 11:28 02/11/18 10:34 02/11/18 10:34 02/11/18 10:34 Oxygen Delivery Method Room Air Weight: 70.7 kg Body Mass Index (BMI) 29.4 Orthostatic Vital Signs Start: 02/10/18 18:28 Freq: q24h Status: Active Protocol: Activity Type Activity Date Activity User E-Sign Co-Sign Detail Recorded Client Recorded Date Recorded By Document 02/11/18 05:27 [facility] [id number] 02/11/18 05:31 [facility] 02/11/18 05:27 Orthostatic Vitals Standing -Blood Pressure (90/60-120/80) 151/64 H -Extremity Use Right Arm -Pulse Rate (60-100) 86 Sitting -Blood Pressure (90/60-120/80) 137/67 H -Extremity Use Right Arm -Pulse Rate (60-100) 82 Lying -Blood Pressure (90/60-120/80) 131/59 H -Extremity Use Right Arm -Pulse Rate (60-100) 84 Intake and Output for Last 24 Hours 02/09/18 02/10/18 02/11/18 23:59 23:59 23:59 Intake Total 673 / 673 1872 / 1872 Output Total 700 / 700 1150 / 1150 Balance -27 / -27 722 / 722 Microbiology Past 72 Hours 02/10/18 20:25 Urine Culture - Preliminary Urine, Clean 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 1. Syncope, unclear etiology-orthostatic vitals negative. Troponin negative. Echocardiogram shows an EF of 65%, RVSP estimated to be [address] unremarkable. MRI of brain pending. NIH 0. No arrhythmias noted on telemetry. Carotid Doppler pending. Continue IV fluids. 2. Fall secondary to #1, prior to admission with multiple facial lacerations and scalp hematoma/head contusion-CT of brain without acute findings. No intracranial hemorrhage. CT of cervical spine without acute fractures or dislocations. Keep facial abrasions clean and dry. Tylenol as needed for pain. MRI completed and pending. 3. Acute cystitis-urinalysis positive. 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 Final culture pending. Continue IV Rocephin. 4. Hypertension-improving. Patient was started on amlodipine 5 mg daily. Continue to monitor. Continue as needed hydralazine. DVT prophylaxis-Lovenox subcu. Discharge planning-anticipate discharge home tomorrow pending MRI of brain with further antibiotic therapy for acute cystitis. This patient was seen by SWETHA Foote under the supervision of Dr. Hernandez. <Mabel Hernandez - Last Filed: 02/11/18 16:13> - Physical Exam Vital Signs Temp Pulse Resp BP Pulse Ox 98.5 F 76 15 130/75 H 94 02/11/18 15:36 02/11/18 15:44 02/11/18 15:36 02/11/18 15:36 02/11/18 15:36 Oxygen Delivery Method Room Air Weight: 70.7 kg Body Mass Index (BMI) 29.4 Orthostatic Vital Signs Start: 02/10/18 18:28 Freq: q24h Status: Active Protocol: Activity Type Activity Date Activity User E-Sign Co-Sign Detail Recorded Client Recorded Date Recorded By Document 02/11/18 05:27 [facility] [id number] 02/11/18 05:31 [facility] 02/11/18 05:27 Orthostatic Vitals Standing -Blood Pressure (90/60-120/80) 151/64 H -Extremity Use Right Arm -Pulse Rate (60-100) 86 Sitting -Blood Pressure (90/60-120/80) 137/67 H -Extremity Use Right Arm -Pulse Rate (60-100) 82 Lying -Blood Pressure (90/60-120/80) 131/59 H -Extremity Use Right Arm -Pulse Rate (60-100) 84 Intake and Output for Last 24 Hours 02/09/18 02/10/18 02/11/18 23:59 23:59 23:59 Intake Total 673 / 673 1872 / 1872 Output Total 700 / 700 1150 / 1150 Balance -27 / -27 722 / 722 Microbiology Past 72 Hours 02/10/18 20:25 Urine Culture - Preliminary Urine, Clean Catch 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 I agree with the interval history, physical exam and assessment and plan as documented by nurse practitioner Laney Wright. Patient was admitted with an episode of syncope. History of hypertension but no history of cardiac disease. Denied any recent illness or change in her medication. Unclear if she had a seizure. Denies any headache or dizziness or chest pain now. Vital signs remained stable, no events on telemetry, 2D echo is unremarkable. Physical exam shows multiple bruises on her face and periorbital ecchymosis. No focal neurologic deficits seen. We will get an MRI of the brain to rule out stroke. After the MRI if negative we need to consider EEG to rule out seizures and possible neurology consult Continue to monitor on telemetry to see if we will pick an arrhythmia. Will consult cardiology to assist in management. Patient might need a Holter monitor or 30 day event monitor on discharge Code Visit Inpatient E&M: 07337 Subs Hosp L2
--- NOTE | 2018-02-11 15:22 | PN_ITS ---
<Laney Wright - Last Filed: 02/11/18 15:22> Patient Problems: Active and Suspected Problems Elevated blood pressure reading (Acute) Head injury (Acute) Syncope (Acute) Subjective: Patient seen and examined. Light headedness. He denies chest pain, palpitations. States she has never had a syncopal episode before. Denies current complaints. - Physical Exam General: Alert, Oriented x3, Cooperative, No apparent distress HEENT: Atraumatic, PERRLA, EOMI, Normocephalic Oral: Moist Mucosa Neck: Supple, No JVD, Negative Carotid Bruits Lungs: Clear to auscultation, Normal air movement Cardiovascular: Regular rate, Regular Rhythm, Normal S1, Normal S2, No murmurs Abdomen: Bowel Sounds Present, Soft, Non Tender, Non-Distended Extremities: No clubbing, No cyanosis, No edema, Capillary Refill Less than 3 Seconds Skin: - - Bilateral eye ecchymosis, multiple facial abrasions. Musculoskeletal: No Tenderness to Palpation of Joints or Extremities Neurological: Cranial nerves II-XII grossly intact, Neuro grossly intact Psych/Mental Status: Normal Affect, Appropriate Vital Signs Temp Pulse Resp BP Pulse Ox 97.8 F 90 15 150/62 H 97 02/11/18 10:34 02/11/18 11:28 02/11/18 10:34 02/11/18 10:34 02/11/18 10:34 Oxygen Delivery Method Room Air Weight: 70.7 kg Body Mass Index (BMI) 29.4 Orthostatic Vital Signs Start: 02/10/18 18:28 Freq: q24h Status: Active Protocol: Activity Type Activity Date Activity User E-Sign Co-Sign Detail Recorded Client Recorded Date Recorded By Document 02/11/18 05:27 [facility] [id number] 02/11/18 05:31 [facility] 02/11/18 05:27 Orthostatic Vitals Standing -Blood Pressure (90/60-120/80) 151/64 H -Extremity Use Right Arm -Pulse Rate (60-100) 86 Sitting -Blood Pressure (90/60-120/80) 137/67 H -Extremity Use Right Arm -Pulse Rate (60-100) 82 Lying -Blood Pressure (90/60-120/80) 131/59 H -Extremity Use Right Arm -Pulse Rate (60-100) 84 Intake and Output for Last 24 Hours 02/09/18 02/10/18 02/11/18 23:59 23:59 23:59 Intake Total 673 / 673 1872 / 1872 Output Total 700 / 700 1150 / 1150 Balance -27 / -27 722 / 722 Microbiology Past 72 Hours 02/10/18 20:25 Urine Culture - 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 1. Syncope, unclear etiology-orthostatic vitals negative. Troponin negative. Echocardiogram shows an EF of 65%, RVSP estimated to be [address] unremarkable. MRI of brain pending. NIH 0. No arrhythmias noted on telemetry. Carotid Doppler pending. Continue IV fluids. 2. Fall secondary to #1, prior to admission with multiple facial lacerations and scalp hematoma/head contusion-CT of brain without acute findings. No intracranial hemorrhage. CT of cervical spine without acute fractures or dislocations. Keep facial abrasions clean and dry. Tylenol as needed for pain. MRI completed and pending. 3. Acute cystitis-urinalysis positive. 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 Final culture pending. Continue IV Rocephin. 4. Hypertension-improving. Patient was started on amlodipine 5 mg daily. Continue to monitor. Continue as needed hydralazine. DVT prophylaxis-Lovenox subcu. Discharge planning-anticipate discharge home tomorrow pending MRI of brain with further antibiotic therapy for acute cystitis. This patient was seen by SWETHA Foote under the supervision of Dr. Hernandez. <Mabel Hernandez - Last Filed: 02/11/18 16:13> - Physical Exam Vital Signs Temp Pulse Resp BP Pulse Ox 98.5 F 76 15 130/75 H 94 02/11/18 15:36 02/11/18 15:44 02/11/18 15:36 02/11/18 15:36 02/11/18 15:36 Oxygen Delivery Method Room Air Weight: 70.7 kg Body Mass Index (BMI) 29.4 Orthostatic Vital Signs Start: 02/10/18 18:28 Freq: q24h Status: Active Protocol: Activity Type Activity Date Activity User E-Sign Co-Sign Detail Recorded Client Recorded Date Recorded By Document 02/11/18 05:27 [facility] [id number] 02/11/18 05:31 [facility] 02/11/18 05:27 Orthostatic Vitals Standing -Blood Pressure (90/60-120/80) 151/64 H -Extremity Use Right Arm -Pulse Rate (60-100) 86 Sitting -Blood Pressure (90/60-120/80) 137/67 H -Extremity Use Right Arm -Pulse Rate (60-100) 82 Lying -Blood Pressure (90/60-120/80) 131/59 H -Extremity Use Right Arm -Pulse Rate (60-100) 84 Intake and Output for Last 24 Hours 02/09/18 02/10/18 02/11/18 23:59 23:59 23:59 Intake Total 673 / 673 1872 / 1872 Output Total 700 / 700 1150 / 1150 Balance -27 / -27 722 / 722 Microbiology Past 72 Hours 02/10/18 20:25 Urine Culture - Preliminary 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 I agree with the interval history, physical exam and assessment and plan as documented by nurse practitioner Laney Wright. Patient was admitted with an episode of syncope. History of hypertension but no history of cardiac disease. Denied any recent illness or change in her medication. Unclear if she had a seizure. Denies any headache or dizziness or chest pain now. Vital signs remained stable , no events on telemetry, 2D echo is unremarkable. Physical exam shows multiple bruises on her face and periorbital ecchymosis. No focal neurologic deficits seen. We will get an MRI of the brain to rule out stroke. After the MRI if negative we need to consider EEG to rule out seizures and possible neurology consult Continue to monitor on telemetry to see if we will pick an arrhythmia. Will consult cardiology to assist in management. Patient might need a Holter monitor or 30 day event monitor on discharge Code Visit Inpatient E&M: 46070 Subs Hosp L2
--- NOTE | 2018-02-11 17:40 | PCM.CONS.C ---
Reason for Consult Date of Consultation: 02/11/18 Reason for Consultation: Syncopal episode History of Present Illness: The patient is a 72 year old F with no significant past medical history according to the patient was brought to the emergency department by EMS because she was found unconscious in the parking lot at his workplace. She apparently got out of her workplace and does not remember what happened. She was able to move herself towards her car and she found that she was bleeding. There were no apparent witnesses. This is the first episode of such an event.. She does not have a primary care physician. she remembers that she was at work this morning but she does not recall any details about being unresponsive or falling. She denied any chest pain or shortness of breath this morning. Denied dizziness or lightheadedness. Denied cough or sputum production. Denies fever chills. She denied any neck pain, or leg pain. She denied abdominal pain, nausea vomiting. She states that she does not take any prescription medications and she takes lots of vitamins and supplements. She mentioned that her blood pressure sometimes elevated, sometimes goes up to 160 systolic. She never been treated for it. In the emergency department, her blood pressure was elevated, other vital signs were stable. Her routine blood work is unremarkable. The plan is negative. EKG revealed normal sinus rhythm without evidence of acute ischemic changes. Chest x-ray showed no acute infiltrate, consolidation or effusion. CT scan brain showed no acute hemorrhage or infarction. CT cervical spine showed no acute fractures or dislocations. Urinalysis revealed cloudy urine, positive for nitrite, 0-5 WBCs and 1+ bacteria. Blood alcohol level less than 3. She is being admitted for syncope, head injury, concussion, frontal scalp hematoma, facial laceration and probable acute cystitis. Cardiology was asked to see her due to her syncope. Past Medical History Allergies/Adverse Reactions: Allergies No Known Allergies Allergy (Verified 02/10/18 14:15) Home Medications: Ambulatory Orders Medication Instructions Recorded Aspirin [Aspirin, Baby] 81 mg PO DAILY@0800 02/10/18 Glucosamine/D3/Boswellia Olimpia 1 each PO DAILY 02/10/18 [Glucosamine Daily Complex Tab] Magnesium 1 tab PO DAILY 02/10/18 Vitamin D 1 tab PO DAILY 02/10/18 Vitamin E 1 tab PO DAILY 02/10/18 Surgical History: cholecystectomy, - - Tubal ligation. 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 Denies: Chest Discomfort, Shortness of Breath, Orthopnea, PND, Peripheral Edema, Palpitations, Lightheadedness, Dizziness, Near Syncope Respiratory: Denies: Cough, Sputum Production, Hemoptysis Gastrointestinal: Denies: Hematemesis, Hematochezia, Melena Genitourinary: Denies: Dysuria, Hematuria Skin: Denies: Rash Subjectve: Pleasant lady in no apparent distress. She appears to be rather bruised. Objective: Vital Signs Temp Pulse Resp BP Pulse Ox 98.5 F 76 15 130/75 H 94 02/11/18 15:36 02/11/18 15:44 02/11/18 15:36 02/11/18 15:36 02/11/18 15:36 Oxygen Delivery Method Room Air Weight: 155 lb 13.869 oz Body Mass Index (BMI) 29.4 Orthostatic Vital Signs Start: 02/10/18 18:28 Freq: q24h Status: Active Protocol: Activity Type Activity Date Activity User E-Sign Co-Sign Detail Recorded Client Recorded Date Recorded By Document 02/11/18 05:27 [facility] [id number] 02/11/18 05:31 [facility] 02/11/18 05:27 Orthostatic Vitals Standing -Blood Pressure (90/60-120/80) 151/64 H -Extremity Use Right Arm -Pulse Rate (60-100) 86 Sitting -Blood Pressure (90/60-120/80) 137/67 H -Extremity Use Right Arm -Pulse Rate (60-100) 82 Lying -Blood Pressure (90/60-120/80) 131/59 H -Extremity Use Right Arm -Pulse Rate (60-100) 84 Intake and Output for Last 24 Hours 02/09/18 02/10/18 02/11/18 23:59 23:59 23:59 Intake Total 673 / 673 1872 / 1872 Output Total 700 / 700 1150 / 1150 Balance - / -27 722 / 722 General: Awake, Alert, Oriented x 3 HEENT: PERRL, EOMI, Sclera Non Icteric Neck: Supple, Good ROM, No Lymph Node Enlargement Lungs: Clear to auscultation Cardiovascular: Regular Rhythm, Normal S1, Normal S2, No Murmurs, No Rubs, No Gallops Vascular: No Carotid Bruits, Normal Femoral Pulses, Normal Radial Pulses, Normal Dorsalis Pedal Pulse, Normal Posterior Tibial Pulses Abdomen: Bowel Sounds Present, Soft, Non Tender, No HSM, No Organomegaly Extremities: No Cyanosis, No Clubbing, No edema Neurological: No Focal Motor or Sensory Deficit Psych/Mental Status: Appropriate 02/11/18 12:10: Troponin I < 0.015 02/11/18 15:10: Troponin I < 0.015 Rhythm: EKG: Normal sinus rhythm with a rate of 82 bpm ECHO: Preserved left ventricular ejection fraction with no wall motion abnormalities and no valvular abnormalities noted Assessment/Plan 1. Syncopal episode. She presents with an unwitnessed syncopal episode and thus far in the hospital has not had any rhythm abnormalities. She ruled out for myocardial infarction, and had echocardiogram demonstrated preserved ejection fraction with no wall motion abnormalities present. Blood counts and electrolytes were noted to be normal and she did not appear to be dehydrated or orthostatic. -At this time it is unclear what the etiology is now recommend that we consider an implantable loop recorder. I have discussed the above with her as well as her family and at this time she wants to think about it and we will revisit this tomorrow. -In the meantime I would recommend continuous telemetry monitoring. Thank you for allowing me to participate in the care of your patient. Please don't hesitate to call if any issues arise
--- NOTE | 2018-02-11 17:45 | CON.PCM_ITS ---
Reason for Consult Date of Consultation: 02/11/18 Reason for Consultation: Syncopal episode History of Present Illness: The patient is a 72 year old F with no significant past medical history according to the patient was brought to the emergency department by EMS because she was found unconscious in the parking lot at his workplace. She apparently got out of her workplace and does not remember what happened. She was able to move herself towards her car and she found that she was bleeding. There were no apparent witnesses. This is the first episode of such an event.. She does not have a primary care physician. she remembers that she was at work this morning but she does not recall any details about being unresponsive or falling. She denied any chest pain or shortness of breath this morning. Denied dizziness or lightheadedness. Denied cough or sputum production. Denies fever chills. She denied any neck pain, or leg pain. She denied abdominal pain, nausea vomiting. She states that she does not take any prescription medications and she takes lots of vitamins and supplements. She mentioned that her blood pressure sometimes elevated, sometimes goes up to 160 systolic. She never been treated for it. In the emergency department, her blood pressure was elevated, other vital signs were stable. Her routine blood work is unremarkable. The plan is negative. EKG revealed normal sinus rhythm without evidence of acute ischemic changes. Chest x-ray showed no acute infiltrate, consolidation or effusion. CT scan brain showed no acute hemorrhage or infarction. CT cervical spine showed no acute fractures or dislocations. Urinalysis revealed cloudy urine, positive for nitrite, 0-5 WBCs and 1+ bacteria. Blood alcohol level less than 3. She is being admitted for syncope, head injury, concussion, frontal scalp hematoma, facial laceration and probable acute cystitis. Cardiology was asked to see her due to her syncope. Past Medical History Allergies/Adverse Reactions: Allergies No Known Allergies Allergy (Verified 02/10/18 14:15) Home Medications: Ambulatory Orders Medication Instructions Recorded Aspirin [Aspirin, Baby] 81 mg PO DAILY@0800 02/10/18 Glucosamine/D3/Boswellia Olimpia 1 each PO DAILY 02/10/18 [Glucosamine Daily Complex Tab] Magnesium 1 tab PO DAILY 02/10/18 Vitamin D 1 tab PO DAILY 02/10/18 Vitamin E 1 tab PO DAILY 02/10/18 Surgical History: cholecystectomy, - - Tubal ligation. 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 Denies: Chest Discomfort, Shortness of Breath , Orthopnea, PND, Peripheral Edema, Palpitations, Lightheadedness, Dizziness, Near Syncope Respiratory: Denies: Cough, Sputum Production, Hemoptysis Gastrointestinal: Denies: Hematemesis, Hematochezia, Melena Genitourinary: Denies: Dysuria, Hematuria Skin: Denies: Rash Subjectve: Pleasant lady in no apparent distress. She appears to be rather bruised. Objective: Vital Signs Temp Pulse Resp BP Pulse Ox 98.5 F 76 15 130/75 H 94 02/11/18 15:36 02/11/18 15:44 02/11/18 15:36 02/11/18 15:36 02/11/18 15:36 Oxygen Delivery Method Room Air Weight: 155 lb 13.869 oz Body Mass Index (BMI) 29.4 Orthostatic Vital Signs Start: 02/10/18 18:28 Freq: q24h Status: Active Protocol: Activity Type Activity Date Activity User E-Sign Co-Sign Detail Recorded Client Recorded Date Recorded By Document 02/11/18 05:27 [facility] [id number] 02/11/18 05:31 [facility] 02/11/18 05:27 Orthostatic Vitals Standing -Blood Pressure (90/60-120/80) 151/64 H -Extremity Use Right Arm -Pulse Rate (60-100) 86 Sitting -Blood Pressure (90/60-120/80) 137/67 H -Extremity Use Right Arm -Pulse Rate (60-100) 82 Lying -Blood Pressure (90/60-120/80) 131/59 H -Extremity Use Right Arm -Pulse Rate (60-100) 84 Intake and Output for Last 24 Hours 02/09/18 02/10/18 02/11/18 23:59 23:59 23:59 Intake Total 673 / 673 1872 / 1872 Output Total 700 / 700 1150 / 1150 Balance - / -27 722 / 722 General: Awake, Alert, Oriented x 3 HEENT: PERRL, EOMI, Sclera Non Icteric Neck: Supple, Good ROM, No Lymph Node Enlargement Lungs: Clear to auscultation Cardiovascular: Regular Rhythm, Normal S1, Normal S2, No Murmurs, No Rubs, No Gallops Vascular: No Carotid Bruits, Normal Femoral Pulses, Normal Radial Pulses, Normal Dorsalis Pedal Pulse, Normal Posterior Tibial Pulses Abdomen: Bowel Sounds Present, Soft, Non Tender, No HSM, No Organomegaly Extremities: No Cyanosis, No Clubbing, No edema Neurological: No Focal Motor or Sensory Deficit Psych/Mental Status: Appropriate 02/11/18 12:10: Troponin I < 0.015 02/11/18 15:10: Troponin I < 0.015 Rhythm: EKG: Normal sinus rhythm with a rate of 82 bpm ECHO: Preserved left ventricular ejection fraction with no wall motion abnormalities and no valvular abnormalities noted Assessment/Plan 1. Syncopal episode. She presents with an unwitnessed syncopal episode and thus far in the hospital has not had any rhythm abnormalities. She ruled out for myocardial infarction, and had echocardiogram demonstrated preserved ejection fraction with no wall motion abnormalities present. Blood counts and electrolytes were noted to be normal and she did not appear to be dehydrated or orthostatic. -At this time it is unclear what the etiology is now recommend that we consider an implantable loop recorder. I have discussed the above with her as well as her family and at this time she wants to think about it and we will revisit this tomorrow. -In the meantime I would recommend continuous telemetry monitoring. Thank you for allowing me to participate in the care of your patient. Please don't hesitate to call if any issues arise
[2018-02-12] VITALS (12 sets, daily range): BP systolic 119–163; BP diastolic 49–72; PULSE 63–76; RESP 15–18; TEMP 36.4–36.7; O2SAT 95–100
[2018-02-12 08:00] LABS: Absolute Lymphocyte Count 2.19 X10^3/ul (0.83-4.51); Absolute Neutrophil Count 3.6 X10^3/uL (2.0-7.7); Basophil# 0.04 X10^3/uL; Basophil% 0.6 % (0-1); Eosinophil# 0.12 X10^3/uL; Eosinophils% 1.8 % (0-5); Hematocrit 37.4 % (37-47); Hemoglobin 12.5 g/dl (12.0-15.0); Lymphocyte # 2.19 X10^3/ul (4.0); Mean Corp Hgb Conc 33.4 g/gl (32-36); Mean Corpuscular Hgb 30.1 pg (27.0-32.0); Mean Corpuscular Volume 90.1 fL (81-99); Mean Platelet Vol. 11.7 fl (6.2-12.0); Monocyte# 0.73 X10^3/uL; Neutrophil # 3.55 X10^3/uL (2.7-7.7); Neutrophil % 53.6 % (47-70); Platelet Count 185 K/mm3 (150-450); RBC Distribution Width CV 13.5 % (11.6-14.6); Red Blood Count 4.15 M/mm3 (4.2-5.4); White Blood Count 6.6 K/mm3 (4.4-11.0)
[2018-02-12 08:02] LABS: POSITIVE COUNT NO; POSITIVE DIFFERENTIAL NO; POSITIVE MORPHOLOGY NO
[2018-02-12 08:07] LABS: Prothrombin Time (Protime)PT. 13.5 SECONDS (11.7-14.9)
[2018-02-12 08:08] LABS: Partial Thromboplast Time 28.2 Seconds (24.1-36.2)
[2018-02-12 08:14] LABS: Anion Gap 8 (5-15); BUN 10 mg/dL (7-18); BUN/Creat Ratio 13.3 RATIO (10-20); Calcium,Total 8.5 mg/dL (8.5-10.1); Chloride 111 mmol/L (98-107); Creatinine, Serum 0.75 mg/dL (0.55-1.02); EST Glomerular Filtration Rate 81 mL/min (>60); Est Glom Filt Rate - Afr Amer 98 mL/min (>60); Glucose 90 mg/dL (74-106); Sodium Level 142 mmol/L (136-145)
[2018-02-12] MEDS: amLODIPine 5 MG Tablet PO (09:41)
[2018-02-12 10:13] LABS: M R Staph aureus DNA By PCR Negative (Negative); Probe Check PASS; Specimen Processing Control PASS
--- NOTE | 2018-02-12 11:08 | PCM.DC ---
- Discharge Diagnoses Current Active Problems: Current Active and Chronic Problems Elevated blood pressure reading (Acute) Head injury (Acute) Syncope (Acute) You will use the following diet at home:: Cardiac Discharge Activity: Return to Normal Activity Call your doctor if you observe: Shortness of breath, Dizziness, Fainting spells, Chest pain, Increased palpitations (irregular heartbeat) Allergies/Adverse Reactions: Allergies No Known Allergies Allergy (Verified 02/10/18 14:15) Medications to take at Discharge Aspirin [Aspirin, Baby] 81 mg PO DAILY@0800 02/10/18 Glucosamine/D3/Boswellia Olimpia [Glucosamine Daily Complex Tab] 1 each PO DAILY 02/10/18 Magnesium 1 tab PO DAILY 02/10/18 Vitamin D 1 tab PO DAILY 02/10/18 Vitamin E 1 tab PO DAILY 02/10/18 Amlodipine [Norvasc] 5 mg PO DAILY #30 tab 02/12/18 The following prescriptions were given: Amlodipine [Norvasc] 5 mg PO DAILY #30 tab Primary Care Physician: Care Physician,No Primary [Primary Care Provider] - Test Results: Test results from this visit will be discussed in further detail at your follow-up appointment, if applicable. Please Follow Up With: Yumi Lu MD - Please make appt prior to DC When: 1 Week Please Follow Up With: Liu Roy MD When: 4-6 Weeks Proposed Discharge Date: 02/12/18
--- NOTE | 2018-02-12 11:13 | DCINST_ITS ---
- Discharge Diagnoses Current Active Problems: Current Active and Chronic Problems Elevated blood pressure reading (Acute) Head injury (Acute) Syncope (Acute) You will use the following diet at home:: Cardiac Discharge Activity: Return to Normal Activity Call your doctor if you observe: Shortness of breath, Dizziness, Fainting spells , Chest pain, Increased palpitations (irregular heartbeat) Allergies/Adverse Reactions: Allergies No Known Allergies Allergy (Verified 02/10/18 14:15) Medications to take at Discharge Aspirin [Aspirin, Baby] 81 mg PO DAILY@0800 02/10/18 Glucosamine/D3/Boswellia Olimpia [Glucosamine Daily Complex Tab] 1 each PO DAILY 02/10/18 Magnesium 1 tab PO DAILY 02/10/18 Vitamin D 1 tab PO DAILY 02/10/18 Vitamin E 1 tab PO DAILY 02/10/18 Amlodipine [Norvasc] 5 mg PO DAILY #30 tab 02/12/18 The following prescriptions were given: Amlodipine [Norvasc] 5 mg PO DAILY #30 tab Primary Care Physician: Care Physician,No Primary [Primary Care Provider] - Test Results: Test results from this visit will be discussed in further detail at your follow- up appointment, if applicable. Please Follow Up With: Yumi Lu MD - Please make appt prior to DC When: 1 Week Please Follow Up With: Liu Roy MD When: 4-6 Weeks Proposed Discharge Date: 02/12/18
--- NOTE | 2018-02-12 11:14 | PCM.DC.SUM ---
Discharge Date and Diagnosis Date of Admission: 02/10/18 Date of Discharge: 02/12/18 - Primary Discharge Diagnosis Active and Suspected Problems 1. Syncopal episode, unclear etiology-status post loop recorder placement 2. Fall prior to admission with multiple facial lacerations and scalp hematoma/head contusion secondary to #1 3. Asymptomatic bacteriuria 4. Newly diagnosed hypertension Hospital Course and Treatment Imaging Results: Diagnostic Data Brain CT 02/10/18 14:25 IMPRESSION: Normal unenhanced CT scan of the brain. Electronically Signed: Sai Casey MD at 14:57 EDT , Service support , Chest X-Ray 02/10/18 14:25 IMPRESSION: Normal x-ray examination of the chest. Electronically Signed: Sai Casey MD at 15:15 EDT , Service support , Cervical Spine CT 02/10/18 14:26 IMPRESSION: There is no definite acute fracture/dislocation. Degenerative changes. Electronically Signed: Sai Casey MD at 15:14 EDT , Service support , Brain MRI 02/11/18 11:17 IMPRESSION: Findings which may be consistent with subtle post traumatic hemorrhagic contusions within the inferior frontal lobes Electronically Signed: Dwight Hartmann MD at 16:17 EDT , Service support , Dr. Roy- Cardiology Operations: None Procedures: 2-D Echocardiogram, Electroencephalogram, - - Loop recorder placement Summary of Care Provided: The patient is a 72 year old F admitted 02/10/2018 due to syncopal episode with associated fall and head injury. No previous medical history. 1. Syncope, unclear etiology-orthostatic vitals negative. Troponin negative. Echocardiogram shows an EF of 65%, RVSP estimated to be [address] unremarkable. MRI unremarkable with exception of posttraumatic contusions in the inferior frontal lobe secondary to trauma. NIH 0. No arrhythmias noted on telemetry. Carotid ultrasounds show less than 50% stenosis bilaterally. Patent and antegrade vertebrals bilaterally. Dr. Roy consulted. Patient underwent loop recorder placement 02/12/2018 prior to discharge. She will follow-up with cardiology in 4-6 weeks. Follow-up with primary care physician in 1 week. EEG completed and pending at discharge. 2. Fall secondary to #1, prior to admission with multiple facial lacerations and scalp hematoma/head contusion-CT of brain without acute findings. No intracranial hemorrhage. CT of cervical spine without acute fractures or dislocations. Keep facial abrasions clean and dry. 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 3. Asymptomatic bacteriuria -urinalysis positive for leukocytes and nitrates. Urine culture positive for low colony count of E. coli. Patient initially received IV Rocephin which was then discontinued. No further antibiotic therapy necessary given patient is asymptomatic. 4. Hypertension-newly diagnosed during admission. Improved. Patient will be discharged on amlodipine 5 mg daily with further adjustments as outpatient by primary care physician. General: Alert, Oriented x3, Cooperative, No apparent distress HEENT: Atraumatic, PERRLA, EOMI, Normocephalic Oral: Moist Mucosa Neck: Supple, No JVD, Negative Carotid Bruits Lungs: Clear to auscultation, Normal air movement Cardiovascular: Regular rate, Regular Rhythm, Normal S1, Normal S2, No murmurs Abdomen: Bowel Sounds Present, Soft, Non Tender, Non-Distended Extremities: No clubbing, No cyanosis, No edema, Capillary Refill Less than 3 Seconds Skin: - - Bilateral eye ecchymosis, multiple facial abrasions. Musculoskeletal: No Tenderness to Palpation of Joints or Extremities Neurological: Cranial nerves II-XII grossly intact, Neuro grossly intact Psych/Mental Status: Normal Affect, Appropriate Patient seen exam prior to discharge. Physical assessment as noted above. Patient is stable for discharge home with implanted loop recorder. Recommend further follow-up with primary care physician and cardiology. This patient was seen by SWETHA Foote under the supervision of Dr. Fernández. Discharge Diet: Low fat/ Low Cholesterol Discharge Activity: Return to Normal Activity Call your doctor if you observe: Shortness of breath, Dizziness, Fainting spells, Chest pain, Increased palpitations (irregular heartbeat) Home Medications: Medications to take at Discharge Aspirin [Aspirin, Baby] 81 mg PO DAILY@0800 02/10/18 Glucosamine/D3/Boswellia Olimpia [Glucosamine Daily Complex Tab] 1 each PO DAILY 02/10/18 Magnesium 1 tab PO DAILY 02/10/18 Vitamin D 1 tab PO DAILY 02/10/18 Vitamin E 1 tab PO DAILY 02/10/18 Amlodipine [Norvasc] 5 mg PO DAILY #30 tab 02/12/18 Following Prescrptions Were Given to Patient: Amlodipine [Norvasc] 5 mg PO DAILY #30 tab Primary Care Physician: Care Physician,No Primary [Primary Care Provider] - Please Follow Up With: Yumi Lu MD - Please make appt prior to DC When: 1 Week Please Follow Up With: Liu Roy MD When: 4-6 Weeks Disposition: Home Minutes spent on discharge:: 35 Patient Condition:: Stable Medical Necessity - Tobacco Use Smoking Status: Never smoker Meaningful Use Info Meaningful Use Diagnoses (Choose all that apply): None applicable
--- NOTE | 2018-02-12 11:18 | DS.PCM_ITS ---
Discharge Date and Diagnosis Date of Admission: 02/10/18 Date of Discharge: 02/12/18 - Primary Discharge Diagnosis Active and Suspected Problems 1. Syncopal episode, unclear etiology-status post loop recorder placement 2. Fall prior to admission with multiple facial lacerations and scalp hematoma/ head contusion secondary to #1 3. Asymptomatic bacteriuria 4. Newly diagnosed hypertension Hospital Course and Treatment Imaging Results: Diagnostic Data Brain CT 02/10/18 14:25 IMPRESSION: Normal unenhanced CT scan of the brain. Electronically Signed: Sai Casey MD at 14:57 EDT , Service support , Chest X-Ray 02/10/18 14:25 IMPRESSION: Normal x-ray examination of the chest. Electronically Signed: Sai Casey MD at 15:15 EDT , Service support , Cervical Spine CT 02/10/18 14:26 IMPRESSION: There is no definite acute fracture/dislocation. Degenerative changes. Electronically Signed: Sai Casey MD at 15:14 EDT , Service support , Brain MRI 02/11/18 11:17 IMPRESSION: Findings which may be consistent with subtle post traumatic hemorrhagic contusions within the inferior frontal lobes Electronically Signed: Dwight Hartmann MD at 16:17 EDT , Service support , Dr. Roy- Cardiology Operations: None Procedures: 2-D Echocardiogram, Electroencephalogram, - - Loop recorder placement Summary of Care Provided: The patient is a 72 year old F admitted 02/10/2018 due to syncopal episode with associated fall and head injury. No previous medical history. 1. Syncope, unclear etiology-orthostatic vitals negative. Troponin negative. Echocardiogram shows an EF of 65%, RVSP estimated to be [address] unremarkable. MRI unremarkable with exception of posttraumatic contusions in the inferior frontal lobe secondary to trauma. NIH 0. No arrhythmias noted on telemetry. Carotid ultrasounds show less than 50% stenosis bilaterally. Patent and antegrade vertebrals bilaterally. Dr. Roy consulted. Patient underwent loop recorder placement 02/12/2018 prior to discharge. She will follow- up with cardiology in 4-6 weeks. Follow-up with primary care physician in 1 week. EEG completed and pending at discharge. 2. Fall secondary to #1, prior to admission with multiple facial lacerations and scalp hematoma/head contusion-CT of brain without acute findings. No intracranial hemorrhage. CT of cervical spine without acute fractures or dislocations. Keep facial abrasions clean and dry. 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 3. Asymptomatic bacteriuria -urinalysis positive for leukocytes and nitrates. Urine culture positive for low colony count of E. coli. Patient initially received IV Rocephin which was then discontinued. No further antibiotic therapy necessary given patient is asymptomatic. 4. Hypertension-newly diagnosed during admission. Improved. Patient will be discharged on amlodipine 5 mg daily with further adjustments as outpatient by primary care physician. General: Alert, Oriented x3, Cooperative, No apparent distress HEENT: Atraumatic, PERRLA, EOMI, Normocephalic Oral: Moist Mucosa Neck: Supple, No JVD, Negative Carotid Bruits Lungs: Clear to auscultation, Normal air movement Cardiovascular: Regular rate, Regular Rhythm, Normal S1, Normal S2, No murmurs Abdomen: Bowel Sounds Present, Soft, Non Tender, Non-Distended Extremities: No clubbing, No cyanosis, No edema, Capillary Refill Less than 3 Seconds Skin: - - Bilateral eye ecchymosis, multiple facial abrasions. Musculoskeletal: No Tenderness to Palpation of Joints or Extremities Neurological: Cranial nerves II-XII grossly intact, Neuro grossly intact Psych/Mental Status: Normal Affect, Appropriate Patient seen exam prior to discharge. Physical assessment as noted above. Patient is stable for discharge home with implanted loop recorder. Recommend further follow-up with primary care physician and cardiology. This patient was seen by SWETHA Foote under the supervision of Dr. Fernández. Discharge Diet: Low fat/ Low Cholesterol Discharge Activity: Return to Normal Activity Call your doctor if you observe: Shortness of breath, Dizziness, Fainting spells , Chest pain, Increased palpitations (irregular heartbeat) Home Medications: Medications to take at Discharge Aspirin [Aspirin, Baby] 81 mg PO DAILY@0800 02/10/18 Glucosamine/D3/Boswellia Olimpia [Glucosamine Daily Complex Tab] 1 each PO DAILY 02/10/18 Magnesium 1 tab PO DAILY 02/10/18 Vitamin D 1 tab PO DAILY 02/10/18 Vitamin E 1 tab PO DAILY 02/10/18 Amlodipine [Norvasc] 5 mg PO DAILY #30 tab 02/12/18 Following Prescrptions Were Given to Patient: Amlodipine [Norvasc] 5 mg PO DAILY #30 tab Primary Care Physician: Care Physician,No Primary [Primary Care Provider] - Please Follow Up With: Yumi Lu MD - Please make appt prior to DC When: 1 Week Please Follow Up With: Liu Roy MD When: 4-6 Weeks Disposition: Home Minutes spent on discharge:: 35 Patient Condition:: Stable Medical Necessity - Tobacco Use Smoking Status: Never smoker Meaningful Use Info Meaningful Use Diagnoses (Choose all that apply): None applicable
[2018-02-12] MEDS: Ceftriaxone 1 GM/50 ML BAG IV (11:30)
[2018-02-12] MEDS: 0.9% Normal Saline 1,000 ML 75 ML IV (11:44)
--- NOTE | 2018-02-12 12:21 | CL.IE_ITS ---
Patient: XIAO COLVIN Study Date: 02/12/2018 Performing: Liu Roy MD : 1945 Age: 72 Gender: female PROCEDURES PERFORMED [id number] OF LOOP RECORDER INDICATIONS Syncope PROCEDURE DETAILS The patient was brought to the Catheterization Lab in the postabsorptive nonsedated state. Informed consent was obtained prior to the procedure. Local anesthetic was given subcutaneously to the left up per chest area with Lidocaine 2%. ICM Reveal LINQ was inserted into the pocket. The patient tolerate d the procedure well. Estimated Blood Loss: < 10 mls IMPLANTED / EX-PLANTED DEVICES IMPLANTED DEVICE(S): ICM Reveal LINQ - Boat [employer]er: [employer], Model # [id number] Serial # [id number] DEVICE PARAMETERS CONCLUSIONS / RECOMMENDATIONS Device Conclusions: Successful implantation of a patient activated loop recorder. Device Recommendations: Follow up with Primary Care Physician PROCEDURE MEDICATIONS Versed 1 mg IV Oxygen: 2 L/min via nasal cannula Signed By Liu Roy MD On 02/12/2018 12:20:30 Liu Roy MD
--- NOTE | 2018-02-14 13:50 | EEG ---
- Electroencephalogram Date of service: 02/12/2018 History EEG is being done in this 72 yr F to rule out seizures EEG Description: This is an 18 channel EEG with 10-20 lead placement system. Bipolar montages, Referential and Circumferential montages were reviewed. Photic stimulation and Hyperventilation were performed. The posterior dominant background rhythm is 10 HZ synchronous, symmetric, reacting to eye opening and closing. Photo stimulation elicited normal driving response but no abnormal photoparoxysmal response, Hyperventilation did not elicit any abnormal photoparoxysmal response. There is consistent EKG artifact noted during the record. Sleep was identified. There was no epileptiform discharges or electrographic seizures noted during this recording. EEG Interpretation This is a normal awake and asleep EEG. There is no epileptiform discharges or electrographic seizures noted during the record.
== END 2018-02-12 17:13 | disposition home or self-care (01) | DRG 261 ==
LOC: ED 15:36 → PCU 17:46
PROVIDERS: Internal Medicine Cardiovascular Disease; Nurse Practitioner Family; Admitting Provider Hospitalist; Emergency Provider Emergency Medicine; Visit Provider Internal Medicine
DX: R55 Syncope and collapse (principal); S06.0X9A Concussion with loss of consciousness of unspecified duration, initial encounter; S01.81XA Laceration without foreign body of other part of head, initial encounter; S01.21XA Laceration without foreign body of nose, initial encounter; S01.511A Laceration without foreign body of lip, initial encounter; W19.XXXA Unspecified fall, initial encounter; I10 Essential (primary) hypertension; R82.71 Bacteriuria
CPT/HCPCS: 33282; 36415; 70450; 70551; 71045; 72125; 80048; 80320; 81001; 84484; 85025; 85610; 85730; 87077; 87086; 87088; 87186; 87641; 93005; 93306; 93880; 95819; 97161; 97165; 99152; 99285; J7030; A4216; G0480

== ENCOUNTER → 2018-08-26 14:39 | Outpatient (CLI) | payer MEDICARE, SELFPAY ==
[2018-07-05 09:22] VITALS: BMI 28.7
--- OUTSIDE RECORDS SUMMARY | 2018-10-31 09:54 | XMS RPT_ITS ---
:1945 Author Organization OHIP Support Name Relationship Address Phone DOLTR Unavailable [address] + [place] [address] MERLIN, RAY Unavailable . + ., [place] . DENISHA, LEEDAWN Unavailable . + [place] [address] DOLTR Unavailable [address] + [place] [address] MERLIN, RAY Unavailable . + ., [place] . DENISHA, LEEDAWN Unavailable . + [place] [address] DOLTR Unavailable [address] + [place] [address] MERLIN, RAY Unavailable . + ., [place] . DENISHA, LEEDAWN Unavailable . + [place] [address] DOLTR Unavailable [address] + [place] [address] MERLIN, RAY Unavailable . + ., [place] . DENISHA, LEEDAWN Unavailable . + [place] [address] DOLTR Unavailable [address] + [place] [address] MERLIN, RAY Unavailable . + ., [place] . DENISHA, LEEDAWN Unavailable . + [place] [address] DOLTR Unavailable [address] + [place] [address] MERLIN, RAY Unavailable . + ., [place] . DENISHA, LEEDAWN Unavailable . + [place] [address] DOLTR Unavailable [address] + [place] [address] MERLIN, RAY Unavailable . + ., [place] . DENISHA, LEEDAWN Unavailable . + [place] [address] DOLTR Unavailable [address] + [place] [address] MERLIN, RAY Unavailable . + ., [place] . DENISHA, LEEDAWN Unavailable . + [place] [address] DOLTR Unavailable [address] + [place] [address] MERLIN, RAY Unavailable . + ., [place] . DENISHA, LEEDAWN Unavailable . + [place] [address] DOLTR Unavailable [address] + [place] [address] MERLIN, RAY Unavailable . + ., [place] . DENISHA, LEEDAWN Unavailable . + [place] [address] DOLTR Unavailable [address] + [place] [address] MERLIN, RAY Unavailable . + ., [place] . DENISHA, LEEDAWN Unavailable . + [place] [address] DOLTR Unavailable [address] + [place] [address] MERLIN, RAY Unavailable . + ., [place] . DENISHA, LEEDAWN Unavailable . + [place] [address] EITAN TAVAREZ Unavailable [address] + [place] [address] DOLTR Unavailable [address] + [place] [address] JENY, JUDITH Unavailable Unavailable + DOLTR Unavailable [address] + [place] [address] MERLIN, RAY Unavailable . + ., [place] . DENISHA, LEEDAWN Unavailable . + [place] [address] DOLTR Unavailable [address] + [place] [address] GREY BOYER Unavailable . + ., [place] . DENISHA, LEEDAWN Unavailable . + [place] [address] EITAN TAVAREZ Unavailable [address] + [place] [address] DOLTR Unavailable [address] + [place] [address] JUDITH FERMIN Unavailable Unavailable + Care Team Providers Name Role Phone MISSAEL LU Referring Unavailable RAFA GALLOWAY Referring Unavailable CRISTOBAL REINA Attending Unavailable VAN BASURTO Referring Unavailable CRISTOBAL REINA Admitting Unavailable CRISTOBAL REINA Attending Unavailable DAVONTE HILLMAN Referring Unavailable MISSAEL LU B Referring Unavailable LATOSHACRISTOBAL PEREZ Attending Unavailable Carlos Mckee Attending Unavailable Carlos Mckee Primary Care Unavailable Primay Care Physicia, No Primary Care Unavailable Ashelfah, Ghasem Admitting Unavailable Manuela, Liu Consulting Unavailable Rafa Fernández Attending Unavailable Ashelfah, Ghasem Attending Unavailable Primay Care Physicia, No Primary Care Unavailable Ashelfah, Ghasem Admitting Unavailable Primay Care Physicia, No Primary Care Unavailable Paintsil, [place] Consulting Unavailable Paintsil, [place] Attending Unavailable Ashelfah, Ghasem Admitting Unavailable Manuela, Liu Attending Unavailable Primay Care Physicia, No Primary Care Unavailable Manuela, Liu Consulting Unavailable Paintsil, [place] Consulting Unavailable SWETHA Foote Attending Unavailable Ashelfah, Ghasem Admitting Unavailable Primay Care Physicia, No Primary Care Unavailable Manuela, Liu Consulting Unavailable Tereletsky, Rafa Consulting Unavailable Tabitha, [place] Attending Unavailable Primay Care Physicia, No Referring Unavailable Primay Care Physicia, No Primary Care Unavailable Carroll Samuel Attending Unavailable Maryana Corona Attending Unavailable Alondra Lube Attending Unavailable Primay Care Physicia, No Referring Unavailable Primay Care Physicia, No Primary Care Unavailable Manuela, Liu Attending Unavailable Primay Care Physicia, No Referring Unavailable Primay Care Physicia, No Primary Care Unavailable Rafa Galloway [employer] Attending Unavailable Oleghe, [place] Referring Unavailable Primay Care Physicia, No Primary Care Unavailable SbVan Attending Unavailable Oleghe, [place] Referring Unavailable Dona Peralta Attending Unavailable Oleghe, [place] Attending Unavailable Oleghe, [place] Referring Unavailable Shy Ferris Attending Unavailable Oleghe, [place] Referring Unavailable PROBLEMS PROBLEMS DATE TYPE CONDITION / CODE ATTENDING STATUS SOURCE 07/09/2018 Active Benign lipomatous LATOSHA, Active [facility] neoplasm of skin [facility] and subcutaneous Repository tissue of right arm / D17.21(ICD-10) 07/05/2018 Unknown E78.5 - Oleghe, Active [facility] Hyperlipidemia, [place] Community unspecified / Hospital E78.5(ICD-10) Repository 06/01/2018 Unknown D17.21 - Benign Brown, Van Active [facility] lipomatous Community neoplasm of skin Hospital and subcutaneous Repository tissue of right arm / D17.21(ICD-10) 06/01/2018 Unknown M65.9 - Synovitis Brown, Van Active [facility] and tenosynovitis, Community unspecified / Hospital M65.9(ICD-10) Repository 03/26/2018 Unknown R55 - Syncope and Manuela, Liu Active [place] collapse / Community R55(ICD-10) Hospital Repository 03/03/2018 Active Encounter for NA Active [facility] screening [facility] mammogram for Repository malignant neoplasm of breast / Z12.31(ICD-10) 02/18/2018 Unknown I10 - Essential Oleghe, Active [facility] (primary) [place] Community hypertension / Hospital I10(ICD-10) Repository 02/18/2018 Unknown Z12.31 - Encounter Oleghe, Active [place] [facility] malignant neoplasm Repository of breast / Z12.31(ICD-10) PROCEDURES PROCEDURES No Procedure Records FoundRESULTS RESULTS PROGRESS Observed: 07/21/2018 Status: COMPLETED Source: [place] 4:30 PM [facility] REPOSITORY HNO ID: [id number] Author: Cristobal Reina Service: (none) Author Type: Physician Type: Progress Notes Filed: 07/21/2018 4:48 PM Note Text: FOLLOW UP VISIT - SKIN LESION NAME: Emelina Colvin CLINIC NO.: [id number] DATE OF SERVICE: 07/20/2018 : 1945 REFERRING PHYSICIAN: Davonte Hillman MD Emelina is a patient I am following for a . I performed an excision of this skin lesion on July 09, 2018. The patient notes no complaints since the procedure. The patient returns today for wound check and suture removal. The pathology returned as: FINAL DIAGNOSIS Soft tissue, right upper arm, excision - Lipoma. SDB/AM/kmr 07/14/18 VITALS: There were no vitals taken for this visit. On examination, the skin incision is healing well with no signs of infection or inflammation. Assessment IMPRESSION: Status post excision of lipoma right upper arm PLAN: If the patient notes any problems or signs of wound infections, the patient should contact me immediately. Diagnoses: (D17.21) Lipoma of right upper extremity (primary encounter diagnosis) Return to Clinic: The patient is instructed to follow- up with me as needed. Cristobal Reina MD CNOV Observed: 07/20/2018 Status: COMPLETED Source: [place] 2:00 PM [facility] REPOSITORY Office Visit (GENSWS) EMELINA COLVIN ([id number]) 1945 F Date Time Provider Department 07/20/18 2:00 PM CRISTOBAL REINA During your visit today, we recorded the following information about you: Cristobal Reina MD 07/21/2018 4:48 PM Signed FOLLOW UP VISIT - SKIN LESION NAME: Emelina Colvin CLINIC NO.: [id number] DATE OF SERVICE: 07/20/2018 : 1945 REFERRING PHYSICIAN: Davonte Hillman MD Emelina is a patient I am following for a . I performed an excision of this skin lesion on July 09, 2018. The patient notes no complaints since the procedure. The patient returns today for wound check and suture removal. The pathology returned as: FINAL DIAGNOSIS Soft tissue, right upper arm, excision - Lipoma. SDB/AM/kmr 07/14/18 VITALS: There were no vitals taken for this visit. On examination, the skin incision is healing well with no signs of infection or inflammation. Assessment IMPRESSION: Status post excision of lipoma right upper arm PLAN: If the patient notes any problems or signs of wound infections, the patient should contact me immediately. Diagnoses: (D17.21) Lipoma of right upper extremity (primary encounter diagnosis) Return to Clinic: The patient is instructed to follow- up with me as needed. Cristobal Reina MD Referring Provider: SELF [200] Allergies As of Date: 07/20/2018 Noted Allergy Reaction ALOE 06/10/2018 2 - Rash CRESTOR (ROSUVASTATIN CALCIUM) 02/17/2013 14 - Other: See Comments Comments: Muscle aches PNSONPL-POX-GWT REDUCTASE INHIBIT*02/06/2014 5 - Intolerance Comments: myalgia Date Reviewed: 07/09/2018 Reviewed by: Rocio (Rn) RAJENDRA Celis - Fully Assessed Reason for Visit: Post Op [174] right arm lipoma removal AEC 07/09 [Other] Reason For Visit History Recorded Primary Visit Diagnosis:Lipoma of right upper extremity [D17.21] Prescriptions as of 07/20/2018 Sig: COENZYME Q10 100 MG CAPSULE Take 2 capsules by mouth once* AMLODIPINE 10 MG TABLET ASPIRIN 81 MG TABLET Take 1 tablet by mouth once d* CHOLECALCIFEROL (VITAMIN D3) * Take 2 capsules by mouth once* CINNAMON BARK-CHROMIUM PICOLI* Take 1 capsule by mouth once * COMPOUNDED PRESCRIPTION Take 1 capsule by mouth once * RLONQKLTJKI-NCRMXHXFS-EDS C-M* Take 1 capsule by mouth three* GREEN TEA LEAF EXTRACT 315 MG* Take 2 capsules by mouth once* LISINOPRIL 10 MG TABLET LUTEIN 40 MG CAPSULE Take 1 capsule by mouth once * NIACIN ER 500 MG TABLET,EXTEN* Take 3 tablets by mouth daily ROSUVASTATIN 20 MG TABLET VITAMIN B COMPLEX TABLET Take 1 tablet by mouth once d* Problem List As Of Date 07/20/2018 Noted Resolved Hyperlipidemia [E78.5] Special screening for malignant neoplasms, colo*INVALID FOR* Need for vaccination [Z23] INVALID FOR* More... Exotropia [H50.10] More... Encounter Status:Closed by CRISTOBAL REINA MD on 07/21/18 COMP METABOLIC PANEL Collected: 07/15/2018 Status: F Source: [place] 9:28 AM [facility] REPOSITORY TYPE CODE TESTS RESULT OUT OF REFERENCE UNITS RANGE LAB TP 6.3-8.0 g/dL Protein, Total 7.3 LAB ALB 3.9-4.9 g/dL Albumin 4.3 LAB CA 8.5-10.2 mg/dL Calcium, Total 9.6 LAB TBIL 0.2-1.3 mg/dL Bilirubin, Total 0.4 LAB ALKP 34-123 U/L Alkaline Phosphatase 60 LAB AST 13-35 U/L AST 35 LAB GLU 74-99 mg/dL Glucose 84 Result Comment: The [place] Diabetes Association (ADA) provides guidance for cutoff values for fasting glucose and random glucose. The ADA defines fasting as no caloric intake for at least 8 hours. Fas ting plasma glucose results between 100 to 125 mg/dL indicate increased risk for diabetes (prediabetes). Fasting plasma glucose results greater than or equal to 126 mg/dL meet the criteria for diagnosis of diabetes. In the absence of unequivocal hyperglycemia, results should be confirmed by repeat testing. In a patient with classic symptoms of hyperglycemia or hyperglycemic crisis, random plasma glucose results greater than or equal to 200 mg/dL meet the criteria for diagnosis of diabetes. Reference: Standards of Medical Care in Diabetes 2016, [place] Diabetes Association. Diabetes Care. 2016.39(Suppl 1). LAB BUN 7-21 mg/dL BUN 10 LAB CRET 0.58-0.96 mg/dL Creatinine 0.75 LAB NA 136-144 mmol/L Sodium 141 LAB K 3.7-5.1 mmol/L Potassium 4.6 LAB CL 97-105 mmol/L Chloride 103 LAB CO2 22-30 mmol/L CO2 27 LAB AGAP 9-18 mmol/L Anion Gap 11 LAB ALT 7-38 U/L ALT 38 LAB GFRAA eGFR- Amer. >60 LAB GFRNAA . eGFR-All Other Races >60 Result Comment: eGFR (Estimated GFR) Units of measure: mL/min/1.73 meters squared eGFR is derived from the reexpressed MDRD Study equation using the following parameters: serum creatinine, age, gender and race. The creatinine assay has been calibrated to be traceable to IDMS. An eGFR <60 mL/min/1.73m2 for >3 months is consistent with chronic kidney disease. Refer to KDOQI guidelines for clinical interpretation. In patients with unstable renal function, e.g. those with acute kidney injury, the eGFR may not accurately reflect actual GFR. Performed By: #### CMP, LIPB #### [facility] [address] [place], [place] [address] LIPID PANEL, BASIC Collected: 07/15/2018 Status: F Source: [place] 9:28 AM [facility] REPOSITORY TYPE CODE TESTS RESULT OUT OF REFERENCE UNITS RANGE LAB CHOL <200 mg/dL Cholesterol 161 Result Comment: <200 mg/dL, Desirable 200-239 mg/dL, Borderline high >239 mg/dL, High LAB TRIGLY <150 mg/dL Triglyceride High 228 Result Comment: <150 mg/dL, Normal 150-199 mg/dL, Borderline high 200-499 mg/dL, High >499 mg/dL, Very high LAB HDL >39 mg/dL HDL-Cholesterol 40 Result Comment: 40-59 mg/dL, Acceptable >59 mg/dL, High: Negative risk factor for coronary heart disease <40 mg/dL, Low: Positive risk factor for coronary heart disease LAB LDL <100 mg/dL LDL-Cholesterol 75 Result Comment: <100 mg/dL, Optimal 100-129 mg/dL, Near optimal/above optimal 130-159 mg/dL, Borderline high 160-189 mg/dL, High >189 mg/dL, Very high Secondary prevention optimal LDL Cholesterol levels are recommended to be < 70 mg/dL LAB NONHDL <130 mg/dL Non HDL Cholesterol 121 Result Comment: <130 mg/dL, Optimal 130-159 mg/dL, Near optimal/above optimal 160-189 mg/dL, Borderline high 190-219 mg/dL, High >219 mg/dL, Very high Secondary prevention optimal non HDL Cholesterol levels are recommended to be < 100 mg/dL LAB FT hrs Fasting Time Unknown LAB VLDL <30 mg/dL VLDL 46 High Cholesterol LAB TCHDL <5.10 TC:HDL Ratio 4.03 LAB LDLHDL <2.54 LDL:HDL Ratio 1.88 Result Comment: Reference: 1. National Cholesterol Education Program ATP III Guideline At-A-Glance Quick Desk Reference: National Heart, Lung, and Blood Confluence. National Institutes of Health. 2001: NIH Publication No. 01-3305. 2. An International Atherosclerosis Society position paper: global recommendations for the management of dyslipidemia: executive summary, Atherosclerosis. 2014: 232(2):410-413. Performed By: #### CMP, LIPB #### [facility] [address] [place], [place] [address] PACEMAKER CHECK Observed: 07/15/2018 Status: F Source: [place] 9:22 AM [facility] [address] [place] [address] Pacemaker Check Date of Service: 07/15/18717 MR#: [id number] Acct: [id number] Name: EMELINA COLVIN Misty Rep #: [id number] : 1945 From: Shy Ferris Age/Sex: 72/F Location[place] [facility] Status: Signed Billing Codes ILR Device Interrogate: Yes 07/15/18719 <Electronically signed by Shy Ferris > Date Shy Ferris 07/15/18 09<Electronically signed by Liu Roy MD> Cosigner Signature: Date (if applicable) Liu Roy MD CC: NURSING PROG Observed: 07/09/2018 Status: COMPLETED Source: [place] 2:06 PM [facility] RE[facility] HNO ID: [id number] Author: Rocio Celis RN Service: Nursing Author Type: Registered Nurse Type: Nursing Progress Note Filed: 07/09/2018 2:09 PM Note Text: Patient did not experience a fall prior to discharge. Patient did not experience a burn prior to discharge. Rocio Celis RN NURSING PROG Observed: 07/09/2018 Status: COMPLETED Source: [place] 1:41 PM [facility] [place] REPOSITORY HNO ID: [id number] Author: Rocio Boyce) RAJENDRA Celis Service: Nursing Author Type: Registered Nurse Type: Nursing Progress Note Filed: 07/09/2018 1:43 PM Note Text: Tolerating snack, no complaints, all safety maintained. NURSING PROG Observed: 07/09/2018 Status: COMPLETED Source: [place] 1:26 PM [facility] REPOSITORY HNO ID: [id number] Author: Rocio Boyce) RAJENDRA Celis Service: Nursing Author Type: Registered Nurse Type: Nursing Progress Note Filed: 07/09/2018 1:27 PM Note Text: Dr Reina visitied with the patient , no complaints, all safety maintained. PT ED Observed: 07/09/2018 Status: COMPLETED Source: [place] 1:25 PM [facility] REPOSITORY HNO ID: [id number] Author: Rocio Boyce) RAJENDRA Celis Service: Nursing Author Type: Registered Nurse Type: Patient Education Filed: 07/09/2018 1:25 PM Note Text: POST OP LEARNING RESPONSE INSTRUCTION PROVIDED TO: Patient METHOD OF INSTRUCTION: Individual instruction Written instruction - handouts Verbal instruction PATIENT / FAMILY RESPONSE: Information received as demonstrated by interest and questions FOLLOW-UP PLAN: Patient instructed to call with any further issues SUPPLEMENTAL MATERIAL: None REFERRAL (RECOMMENDATION): None Electronically Signed By: Rocio Celis RN In Department: AMBULATORY SURGERY NURSING PROG Observed: 07/09/2018 Status: COMPLETED Source: [place] 1:20 PM [facility] REPOSITORY HNO ID: [id number] Author: Rocio Boyce) RAJENDRA Celis Service: Nursing Author Type: Registered Nurse Type: Nursing Progress Note Filed: 07/09/2018 1:26 PM Note Text: Pt into Endo recovery room in satisfactory condition. Resting on left side. Pt. sleepy but arousable. Abdomen soft, no complaints, all safety maintained. Will continue to monitor. NURSING PROG Observed: 07/09/2018 Status: COMPLETED Source: [place] 1:11 PM [facility] REPOSITORY HNO ID: [id number] Author: Dalila (Rn) RAJENDRA Delacruz Service: Nursing Author Type: Registered Nurse Type: Nursing Progress Note Filed: 07/09/2018 1:12 PM Note Text: Patient did not experience a fall within the Intraoperative area. Patient did not experience a burn within the Intraoperative area. Dalila Delacruz RN OPERATIVE NO Observed: 07/09/2018 Status: COMPLETED Source: [place] 12:40 PM [facility] REPOSITORY HNO ID: [id number] Author: Cristobal Reina Service: General Surgery Author Type: Physician Type: Operative Report Filed: 07/09/2018 1:36 PM Note Text: BRIEF OPERATIVE NOTATION FOR SURGICAL PROCEDURE. Emelina Colvin 1945 [id number] female LOG ID: [id number] Surgery/Procedure Date: 07/09/2018 Incision/Procedure Start Time: 12:55 PM Incision Close/Procedure End Time: 1:11 PM Surgeon(s)/Proceduralist(s) and Accounting Generalist(s): Surgeon(s) and Role: * Cristobal Reina - Primary No Additional Staff REFERRING PHYSICIAN: Nathaniel Estevez DEPT: [facility]INT PROVIDER: Olga POS: [id number] ANESTHESIA: Procedural Sedation ASA CLASS: 2 - mild DIAGNOSIS: right arm lipoma PROCEDURE: Mass - Arm - Subcutaneous >3cm - 87600 IVF: 550 EBL: 20 Specimens: lipoma Brief description of procedure: The patient was brought to the operating suite. Sign in was performed verifying patient, site, procedure, position. The patient was positioned in the left side down right side up lateral decubitus position. Following IV sedation, the area of the planned excision was prepped and draped in usual fashion. Timeout was performed verifying patient site procedure position. Local anesthetic was injected around the planned excision site. An linear incision was made overlying the lipoma. The lipoma was dissected from it's subcutaneous attachments and it was excised completely. The deep space was closed with interrupted 3-0 Vicryl suture. Skin was closed with 4-0 Monocryl running subcuticular suture. Steri- Strips were applied A dressing was applied The patient was brought to recovery room in stable condition. FINDINGS: 7cm COMPLICATIONS: None PMHx - PAST MEDICAL HISTORY Diagnosis Date - Exotropia adult onset - Hyperlipidemia COMORBIDITIES - None Post Op Occurrences - None Wound Classification - Clean Operative note dictated in the dictation system. Cristobal Reina MD NURSING PROG Observed: 07/09/2018 Status: COMPLETED Source: [place] 12:38 PM [facility] REPOSITORY HNO ID: [id number] Author: Sandra Alexis RN Service: (none) Author Type: Registered Nurse Type: Nursing Progress Note Filed: 07/09/2018 12:38 PM Note Text: Patient did not experience a fall within the Preoperative area. Patient did not experience a burn within the Preoperative area. [facility] [facility] PRE-OP NURSING HAND OFF NOTE SBAR Hand off given to Dalila Delacruz RN. Hand off was communicated verbally and at the patient's bedside and all questions were answered. RAJENDRA Simmons RN PT ED Observed: 07/09/2018 Status: COMPLETED Source: [place] 11:27 AM [facility] REPOSITORY HNO ID: [id number] Author: Sandra Alexis RN Service: (none) Author Type: Registered Nurse Type: Patient Education Filed: 07/09/2018 11:28 AM Note Text: PRE OP LEARNING ASSESSMENT PROCEDURE/SURGERY: SURGERY: Lipoma excision READINESS TO LEARN COGNITIVE ABILITY: Alert and oriented MOTIVATION TO LEARN: Eager Interested FAMILY SUPPORT: High - Very involved in pt care PATIENT LEARNS BEST BY: Individual Instruction Written Instruction - Hand-outs Verbal Instruction Multiple Methods FACTORS AFFECTING LEARNING: None PHYSICAL LIMITATIONS AFFECTING LEARNING: None Electronically Signed By: Sandra Alexis RN In Department: AMBULATORY SURGERY HISTORY PHYSICAL Observed: 07/09/2018 Status: COMPLETED Source: [place] 11:26 AM [facility] REPOSITORY HNO ID: [id number] Author: Cristobal Reina Service: General Surgery Author Type: Physician Type: HANDP Filed: 07/09/2018 11:26 AM Note Text: HISTORY AND PHYSICAL ? Emelina Colvin 1945 ? ? REFERRING PHYSICIAN: Van Basurto, DO ? CHIEF COMPLAINT: skin lesion ? HPI: The patient is a 72 year old female. She notes a lipoma on her upper right anterior lateral form which is been growing for some time. She notes that does cause some discomfort when she leans against it and now notes a stretching living with his uncomfortable at the lower aspect of the lipoma. It is approximately 8 x 6 cm and wraps partially around the arm. She wishes to have it removed. ? The patient notes earlier this year she had an episode of syncope. She has had an extensive cardiac workup since that time and actually has a subcutaneous placed event recorder. This was performed by Dr. Roy ? ? SIGNIFICANT MEDICAL PROBLEMS: PAST MEDICAL HISTORY PAST MEDICAL HISTORY Diagnosis Date - Exotropia ? ? adult onset - Hyperlipidemia ? ? ? OPERATIONS: PAST SURGICAL HISTORY PAST SURGICAL HISTORY Procedure Laterality Date - CATARACT EXTRACTION HX Right 2013 - COLONOSCOP W/ OR W/O BRSH SPEC ? 09/2002 ? negative by report - COLONOSCOP W/ OR W/O BRSH SPEC ? 03/15/13 ? normal colonoscopy - 10 year follow up - LAPAROSCOPIC CHOLEYCYSTECTOMY ? 2002 - PAST SURGICAL HISTORY OF ? ? ? left cataract removal - TOTAL ABDOM HYSTERECTOMY ? 2001 ? SANJEEV/BSO-benign growth on tube ? ? ? CURRENT MEDICATIONS: CURRENT MEDICATIONS Current Outpatient Prescriptions: Cholecalciferol, Vitamin D3, (VITAMIN D-3) 2,000 unit cap Take 2 capsules by mouth once daily. Disp: Rfl: Aspirin 81 mg Tab Take 1 tablet by mouth once daily. Take with food. Disp: 30 tablet Rfl: 11 lutein 40 mg cap Take 1 capsule by mouth once daily. Disp: Rfl: 0 vitamin b complex (B COMPLETE) Tab Take 1 tablet by mouth once daily. Disp: Rfl: 0 Green Tea [place] Extract 315 mg cap Take 2 capsules by mouth once daily. Disp: Rfl: 0 Caazkcvguwd-Ulgjdluvr-Cpt C-Mn (GLUCOSAMINE CHONDROITIN MAXSTR) 500-400 mg cap Take 1 capsule by mouth three times daily. Disp: Rfl: 0 cinnamon bark-chromium picolin 500-100 mg-mcg cap Take 1 capsule by mouth once daily. Disp: Rfl: 0 COMPOUNDED PRESCRIPTION Take 1 capsule by mouth once daily. G.H.3 1 capsule daily Disp: Rfl: 0 amLODIPine (NORVASC) 10 mg tablet ? Disp: Rfl: lisinopril (ZESTRIL, PRINIVIL) 10 mg tablet ? Disp: Rfl: rosuvastatin (CRESTOR) 20 mg tablet ? Disp: Rfl: niacin sustained release (NIASPAN) 500 mg tablet Take 3 tablets by mouth daily Disp: Rfl: coenzyme Q10 100 mg cap Take 2 capsules by mouth once daily. Disp: Rfl: 0 ? No current facility-administered medications for this visit. ? ALLERGIES: Aloe; Crestor [Rosuvastatin Calcium]; Ysrufcg-Anj-Dcg Reductase Inhibitors ? PERSONAL HISTORY: SOCIAL HISTORY Social History Marital status: Spouse name: Years of education: Number of children: 3 ? Occupational History Occupation Employer Comment [employer] ? Social History Main Topics Smoking status: Never Smoker ? Smokeless tobacco: Never Used Alcohol use: No Drug use: No Sexual activity: Not Currently Partners with: Male ? Social History Narrative x 2. Moved to [place] from [place] 2006. Originally from [place]. ? ? FAMILY HISTORY: FAMILY HISTORY FAMILY HISTORY Problem Relation Age of Onset - Diabetes Mother ? - Heart Mother ? ? no VA/CABG - Diabetes Brother ? - Coronary Artery Disease Brother ? ? heart attacks - Prostate Cancer Brother ? - Ovarian cancer Sister ? - Hypertension Sister ? - Prostate Cancer Father ? - COPD Father ? ? asbestos - Coronary Artery Disease Brother ? - Coronary Artery Disease Maternal Uncle ? ? ? REVIEW OF SYMPTOMS: The review of systems data was entered by the nurse and reviewed by me ? REVIEW OF SYSTEMS: ?General:???The patient denies?fatigue, denies?weight loss, denies?weight gain, denies?feeling hot, and denies?feelings of cold. ?Eyes: ?The patient denies?glaucoma, NOTES?eye injury/surgery, does not wear?glasses or contacts. ?Ear/Nose/Throat: ?The patient denies?allergies, denies?hayfever, denies?ear infections, and denies?bloody noses. ?Cardiovascular: ?The patient denies?chest pain, denies?heart disease, NOTES?high blood pressure,denies?cardiac stent, denies?prior heart attack, denies?irregular heart beat, NOTES?high cholesterol, ?denies?poor circulation, denies?heart failure, other cardiac issues, denies?claudication, denies?cold feet, denies?peripheral arterial stent. ?Respiratory: ?The patient denies?tuberculosis, denies?pneumonia, denies?frequent cough, denies?pulmonary embolism, denies?shortness of breath, and denies?coughing up blood. ?Gastrointestinal: ?The patient denies?difficulty swallowing, denies?acid reflux, denies?ulcers, denies?vomiting, denies?jaundice/hepatitis, denies?gallbladder problems, denies?black or tarry stools, denies?hemorrhoids, denies?bleeding from rectum, denies?diverticulitis, denies?constipation, denies?diarrhea, denies?loss of stool control, and denies?hernias. ?Kidney/Bladder: ?The patient denies?kidney stones, denies?urine infections, and denies?bloody urine. ?Skin: ?The patient denies?a history of skin cancer, denies?bleeding/changing moles, and denies?a history of skin rash. ?Neurologic: ?The patient denies?a history of epilepsy/convulsions, denies?headaches, denies?head/spinal injuries, and denies?stroke/TIA. ?Psychiatric: ?The patient denies?psychiatric medications, denies?depression, and denies?voices, denies?substance abuse. ?Endocrine: ?The patient denies?thyroid disorders, denies?diabetes, and denies?hormonal problems. ?Hematologic: ?The patient denies?a history of bruising, denies?bleeding, and denies?anemia, denies?blood clots. ?Infections: ?The patient denies?a history of measles and mumps, denies?rheumatic fever, and denies?sexually transmitted diseases. ?Musculoskeletal: ?The patient denies?back pain/injury, denies?back problems, denies?sciatica, denies?knee/foot trouble, denies?arthritis, or denies?gout. ? ? When was patient's last Mammogram screening? 2017 ? ?Last Colonoscopy: ?none? ? Amena Paul LPN ? PHYSICAL EXAMINATION: ? General: The patient is 72 year old female, well nourished, well hydrated in no acute distress. The patient is oriented to time, place, and person. ? VITALS: Blood pressure 122/56, pulse 80, height 152.4 cm (5'), weight 68 kg (150 lb). Body mass index is 29.29 kg/m?. ? HEENT: Normal cephalic, ataumatic, pupils are equally round, sclera are anicteric, mucous membranes are moist, oropharynx is clear. Neck has no masses, asymmetry or lymphadenopathy. Thyroid is unremarkable. ? Respiratory: Clear to auscultation and percussion. Normal respiratory excursion and pattern. ? Cardiac: Examination is regular rate and rhythm. ? Abdominal exam: Soft, nontender, with no palpable masses. No hepatosplenomegaly. No palpable hernias. ? Rectal exam: exam deferred ? Extremities: no clubbing, cyanosis or edema. No adenopathy. ? Other: Location: Right upper lateral arm - 8x6cm mass consistent with clinical exam and ultrasound evaluation with a subcutaneous lipoma ? ? LABORATORY VALUES: As Noted ? RADIOLOGIC STUDIES: As Noted ? ? ? Assessment IMPRESSION: SUBCUTANEOUS MASS/PROBABLE LIPOMA - RIGHT UPPER ARM ? PLAN: Emelina will return for excision of the skin lesion at a later date. The patient is instructed not to take aspirin for 1 week prior to the procedure. Given the size of this lipoma I will plan to perform this in the [facility]. The patient would like to have sedation at the time of the procedure. ? Diagnoses: (D17.21) Lipoma of right upper extremity (primary encounter diagnosis) ? Return to Clinic: The patient is instructed to follow-up with me 1 week post operatively. ? Cristobal Reina MD SURGICAL PATHOLOGY Observed: 07/09/2018 Status: F Source: [place] 12:00 AM [facility] REPOSITORY Specimen originated from [facility] Specimen #: [id number] Submitting Physician: CRISTOBAL REINA ([id number]) FINAL DIAGNOSIS Soft tissue, right upper arm, excision - Lipoma. CHLOE/LOGAN/maite 07/14/18 Andreas Bullard M.D. (Electronic Signature) SPECIMEN SUBMITTED A: RIGHT UPPER ARM LIPOMA CLINICAL DATA Lipoma of right upper extremity [D17.21] GROSS DESCRIPTION A. Received in formalin labeled right upper arm lipoma is an irregular unoriented yellow segment of fatty tissue measuring 7.6 x 5.8 x 3.2 cm. Upon sectioning, the specimen displays a yellow fatty cut surface. [employer] sections are submitted in formalin in seven blocks. KVB/glw 07/12/2018 [place] [address] Date of Report: 07/14/2018 Date of Procedure: 07/09/2018 Date of Receipt: 07/09/2018 Submitted by: CRISTOBAL REINA ([id number]) Location: W01 Diagnostic interpretation performed at [place] [address]. INTERNAL MEDICINE Observed: 07/05/2018 Status: F Source: [facility] OFFICE VISIT 4:41 PM [facility] [place] [address] OFFICE VISIT Date of Service: 07/05/18 MR#: [id number] Acct: [id number] Name: NGUYENGREGEMELINA A Rep #: [id number] : 1945 Provider: Missael Lu MD Age/Sex: 72/F Location: [facility] Status: Signed Intake Vital Signs07/05/18 Height 5 ft 1 in Intake Visit Reasons: FU Chief Complaint: follow-up visit Allergies No Known Allergies Allergy (Verified 06/01/18 14:03) Medications Aspirin [Aspirin, Baby] 81 mg PO DAILY@0800 02/10/18 [History Confirmed 06/01/18] Glucosamine/D3/Boswellia Olimpia [Glucosamine Daily Complex Tab] 1 ea PO DAILY 02/10/18 [History Confirmed 06/01/18] lisinopril 10 mg tablet 10 mg PO QDAY #60 tab 03/23/18 [Rx Confirmed 06/01/18] cholecalciferol (vitamin D3) 5,000 unit capsule 5,000 unit PO QDAY 03/26/18 [History Confirmed 06/01/18] rosuvastatin 20 mg tablet 20 mg PO DAILY #90 tab 06/14/18 [Rx] vitamins A,C,and E-selenium capsule 1 cap PO DAILY 07/05/18 [History Confirmed 07/05/18] Post menopausal: Yes PFSH Medical History Hypertension (Chronic) Syncope (Chronic) History of hysterectomy (Resolved) Surgical History Status post placement of implantable loop recorder (Resolved 02/12/18) History of cholecystectomy (Resolved) Family History Mother Myocardial infarction Depression Brother Heart disease Lung disease Sister Lung disease Heart disease Sister Asthma Skin disease Father Lung disease Social History Smoking Status: Never smoker alcohol intake: never substance use type: does not use what type of physical activity do you participate in: none HPI HPI Chief Complaint: follow-up visit Details: EMELINA COLVIN, is a 72 F who presents to the office today for follow-up of her chronic medical conditions. She brings a log of her blood pressure log which shows an average good control. She discontinued amlodipine 2 weeks ago and is currently on lisinopril. Blood pressure has remained stable despite discontinuing amlodipine. She continues to report right wrist and thumb pain. Has tried splints and NSAIDs with no significant improvement. ROS Const Constitutional: No weight change, body ache, chills, fatigue, sleep problems, fever(s), change in appetite, snoring, weakness, frequent falls, headache(s) or excessive sweating Eyes Eyes: No change in vision, eye pain, light sensitivity or blurry vision ENT ENT: No headache(s), abnormal hearing, ear pain, tinnitus, nasal congestion, sore throat or neck pain Resp Respiratory: No snoring, cough, shortness of breath or wheezing Cardio Cardiology: No excessive sweating, chest pain at rest, chest pain with exertion, shortness of breath, dyspnea on exertion, palpitations, orthopnea or lightheadedness Gastro GI: No abdominal pain, change in bowel habits, constipation, diarrhea, vomiting, nausea/dyspepsia or cramping Genitourinary-Female: No burning urination, painful urination, urinary incontinence, urinary frequency, abnormal vaginal bleeding, pelvic pain or other Musc Musculoskeletal: Positive for other (Rt. wrist pain); no neck pain, abnormal walking, joint pain, back pain, limited range of motion, numbness or tingling Skin Skin: No redness, dry skin, itching, lesions, wounds or rash Neuro Neurology: No weakness, frequent falls, headache(s), abnormal hearing, abnormal walking, numbness, tingling, abnormal speech, dizziness or memory loss Psych Psychiatric: No change in appetite, No memory loss, No anxiety, No depression, No Thoughts of harming yourself/Others Endo Endocrine: No fatigue, excessive sweating, cold intolerance, increased thirst/drinking, heat intolerance, flushing or increased hunger Aller/Imm Allergy/Immunologic: No wheezing, itchy eyes, hives or seasonal allergy symptoms Carlos/Lymp Hematologic/Lymphatic: No easy bleeding, easy bruising or enlarged lymph nodes Exam Const General: cooperative, no acute distress Orientation: alert, awake, oriented x3 HENMA Head: atraumatic, normocephalic, normal to inspection Ears: hearing grossly normal bilaterally Resp Effort AND Inspection: normal respiratory effort, able to speak in complete sentences Auscultation: Bilateral: Clear to Auscultation Cardio Rate: regular rate Rhythm: regular rhythm Heart Sounds: S2 normal, S1 normal GI Palpation: soft, no hepatosplenomegaly Musc Musculoskeletal: Yes joint tenderness and decreased ROM Neuro General: alert, awake, oriented x3, CN's II-XI intact bilaterally, moves all extremities Extrem General: no clubbing, cyanosis or edema Psych Appearance: grossly normal Mental Status: mental status grossly normal Mood: congruent mood Affect: normal affect Assessment AND Plan 1. Hypertension I10 Plan Good control. Continue current medication. Continue lifestyle and dietary modification. Advised to keep a blood pressure log. 2. Right wrist pain M25.531 Plan Chronic. Conservative measures without any significant improvement. Refer to Ortho. Might benefit from intra-articular steroid injections. 3. Hyperlipidemia E78.5 Plan Last LDL of 189. Started on Crestor. No concerns. Repeat CMP and lipid profile ordered. Continue current medication and lifestyle/dietary modifications. This note was generated with [employer] software. It may contain incorrect words, spelling, and punctuation that were not noted in checking the note before signing. Orders Orders: Plan Detail Other Medications New: Coding Level of Care Code Off vis,est,level 3 Diagnoses Hypertension I10 Right wrist pain M25.531 Hyperlipidemia E78.5 07/05/18 1641 <Electronically signed by Missael Lu MD> Date Missael Lu MD Cosigner Signature: Date (if applicable) CC: PROGRESS Observed: 06/10/2018 Status: COMPLETED Source: [place] 7:16 PM [facility] [place] REPOSITORY [facility] ID: [id number] Author: Cristobal Reina Service: (none) Author Type: Physician Type: Progress Notes Filed: 06/11/2018 6:36 PM Note Text: HISTORY AND PHYSICAL Emelina Colvin 1945 REFERRING PHYSICIAN: Van Basurto DO CHIEF COMPLAINT: skin lesion HPI: The patient is a 72 year old female. She notes a lipoma on her upper right anterior lateral form which is been growing for some time. She notes that does cause some discomfort when she leans against it and now notes a stretching living with his uncomfortable at the lower aspect of the lipoma. It is approximately 8 x 6 cm and wraps partially around the arm. She wishes to have it removed. The patient notes earlier this year she had an episode of syncope. She has had an extensive cardiac workup since that time and actually has a subcutaneous placed event recorder. This was performed by Dr. Roy SIGNIFICANT MEDICAL PROBLEMS: PAST MEDICAL HISTORY Diagnosis Date - Exotropia adult onset - Hyperlipidemia OPERATIONS: PAST SURGICAL HISTORY Procedure Laterality Date - CATARACT EXTRACTION HX Right 2013 - COLONOSCOP W/ OR W/O [facility] SPEC 09/2002 negative by report - COLONOSCOP W/ OR W/O [facility] SPEC 03/15/13 normal colonoscopy - 10 year follow up - LAPAROSCOPIC CHOLEYCYSTECTOMY 2002 - PAST SURGICAL HISTORY OF left cataract removal - TOTAL ABDOM HYSTERECTOMY 2001 SANJEEV/BSO-benign growth on tube CURRENT MEDICATIONS: Current Outpatient Prescriptions: Cholecalciferol, Vitamin D3, (VITAMIN D-3) 2,000 unit cap Take 2 capsules by mouth once daily. Disp: Rfl: Aspirin 81 mg Tab Take 1 tablet by mouth once daily. Take with food. Disp: 30 tablet Rfl: 11 lutein 40 mg cap Take 1 capsule by mouth once daily. Disp: Rfl: 0 vitamin b complex (B COMPLETE) Tab Take 1 tablet by mouth once daily. Disp: Rfl: 0 Green Tea [place] Extract 315 mg cap Take 2 capsules by mouth once daily. Disp: Rfl: 0 Gdgrbyyzyia-Slogwclzw-Ohs C-Mn (GLUCOSAMINE CHONDROITIN MAXSTR) 500-400 mg cap Take 1 capsule by mouth three times daily. Disp: Rfl: 0 cinnamon bark-chromium picolin 500-100 mg-mcg cap Take 1 capsule by mouth once daily. Disp: Rfl: 0 COMPOUNDED PRESCRIPTION Take 1 capsule by mouth once daily. G.H.3 1 capsule daily Disp: Rfl: 0 amLODIPine (NORVASC) 10 mg tablet Disp: Rfl: lisinopril (ZESTRIL, PRINIVIL) 10 mg tablet Disp: Rfl: rosuvastatin (CRESTOR) 20 mg tablet Disp: Rfl: niacin sustained release (NIASPAN) 500 mg tablet Take 3 tablets by mouth daily Disp: Rfl: coenzyme Q10 100 mg cap Take 2 capsules by mouth once daily. Disp: Rfl: 0 No current facility-administered medications for this visit. ALLERGIES: Aloe; Crestor [Rosuvastatin Calcium]; Dqwbhog-Buq-Uti Reductase Inhibitors PERSONAL HISTORY: Social History Marital status: Spouse name: Years of education: Number of children: 3 Occupational History Occupation Employer Comment [employer] Social History Main Topics Smoking status: Never Smoker Smokeless tobacco: Never Used Alcohol use: No Drug use: No Sexual activity: Not Currently Partners with: Male Social History Narrative x 2. Moved to [place] from [place] 2006. Originally from [place]. FAMILY HISTORY: FAMILY HISTORY Problem Relation Age of Onset - Diabetes Mother - Heart Mother no VA/CABG - Diabetes Brother - Coronary Artery Disease Brother heart attacks - Prostate Cancer Brother - Ovarian cancer Sister - Hypertension Sister - Prostate Cancer Father - COPD Father asbestos - Coronary Artery Disease Brother - Coronary Artery Disease Maternal Uncle REVIEW OF SYMPTOMS: The review of systems data was entered by the nurse and reviewed by me REVIEW OF SYSTEMS: General: The patient denies fatigue, denies weight loss, denies weight gain, denies feeling hot, and denies feelings of cold. Eyes: The patient denies glaucoma, NOTES eye injury/surgery, does not wear glasses or contacts. Ear/Nose/Throat: The patient denies allergies, denies hayfever, denies ear infections, and denies bloody noses. Cardiovascular: The patient denies chest pain, denies heart disease, NOTES high blood pressure,denies cardiac stent, denies prior heart attack, denies irregular heart beat, NOTES high cholesterol, denies poor circulation, denies heart failure, other cardiac issues, denies claudication, denies cold feet, denies peripheral arterial stent. Respiratory: The patient denies tuberculosis, denies pneumonia, denies frequent cough, denies pulmonary embolism, denies shortness of breath, and denies coughing up blood. Gastrointestinal: The patient denies difficulty swallowing, denies acid reflux, denies ulcers, denies vomiting, denies jaundice/hepatitis, denies gallbladder problems, denies black or tarry stools, denies hemorrhoids, denies bleeding from rectum, denies diverticulitis, denies constipation, denies diarrhea, denies loss of stool control, and denies hernias. Kidney/Bladder: The patient denies kidney stones, denies urine infections, and denies bloody urine. Skin: The patient denies a history of skin cancer, denies bleeding/changing moles, and denies a history of skin rash. Neurologic: The patient denies a history of epilepsy/convulsions, denies headaches, denies head/spinal injuries, and denies stroke/TIA. Psychiatric: The patient denies psychiatric medications, denies depression, and denies voices, denies substance abuse. Endocrine: The patient denies thyroid disorders, denies diabetes, and denies hormonal problems. Hematologic: The patient denies a history of bruising, denies bleeding, and denies anemia, denies blood clots. Infections: The patient denies a history of measles and mumps, denies rheumatic fever, and denies sexually transmitted diseases. Musculoskeletal: The patient denies back pain/injury, denies back problems, denies sciatica, denies knee/foot trouble, denies arthritis, or denies gout. ? ? When was patient's last Mammogram screening? 2018 ? Last Colonoscopy: none ? Amena Paul LPN PHYSICAL EXAMINATION: General: The patient is 72 year old female, well nourished, well hydrated in no acute distress. The patient is oriented to time, place, and person. VITALS: Blood pressure 122/56, pulse 80, height 152.4 cm (5'), weight 68 kg (150 lb). Body mass index is 29.29 kg/m?. HEENT: Normal cephalic, ataumatic, pupils are equally round, sclera are anicteric, mucous membranes are moist, oropharynx is clear. Neck has no masses, asymmetry or lymphadenopathy. Thyroid is unremarkable. Respiratory: Clear to auscultation and percussion. Normal respiratory excursion and pattern. Cardiac: Examination is regular rate and rhythm. Abdominal exam: Soft, nontender, with no palpable masses. No hepatosplenomegaly. No palpable hernias. Rectal exam: exam deferred Extremities: no clubbing, cyanosis or edema. No adenopathy. Other: Location: Right upper lateral arm - 8x6cm mass consistent with clinical exam and ultrasound evaluation with a subcutaneous lipoma LABORATORY VALUES: As Noted RADIOLOGIC STUDIES: As Noted Assessment IMPRESSION: SUBCUTANEOUS MASS/PROBABLE LIPOMA - RIGHT UPPER ARM PLAN: Emelina will return for excision of the skin lesion at a later date. The patient is instructed not to take aspirin for 1 week prior to the procedure. Given the size of this lipoma I will plan to perform this in the [facility]. The patient would like to have sedation at the time of the procedure. Diagnoses: (D17.21) Lipoma of right upper extremity (primary encounter diagnosis) Return to Clinic: The patient is instructed to follow-up with me 1 week post operatively. Cristobal Reina MD CNOV Observed: 06/10/2018 Status: COMPLETED Source: [place] 1:00 PM [facility] REPOSITORY Office Visit (GENSWS) EMELINA COLVIN ([id number]) 1945 F Date Time Provider Department 06/10/18 1:00 PM CRISTOBAL REINA During your visit today, we recorded the following information about you: Pulse Blood pressure Weight Height 80/minute 122/56 68 kg 1.524 m Cristobal Reina MD 06/11/2018 6:36 PM Signed HISTORY AND PHYSICAL Emelina Jay Nguyen 1945 REFERRING PHYSICIAN: Van Basurto DO CHIEF COMPLAINT: skin lesion HPI: The patient is a 72 year old female. She notes a lipoma on her upper right anterior lateral form which is been growing for some time. She notes that does cause some discomfort when she leans against it and now notes a stretching living with his uncomfortable at the lower aspect of the lipoma. It is approximately 8 x 6 cm and wraps partially around the arm. She wishes to have it removed. The patient notes earlier this year she had an episode of syncope. She has had an extensive cardiac workup since that time and actually has a subcutaneous placed event recorder. This was performed by Dr. Roy SIGNIFICANT MEDICAL PROBLEMS: PAST MEDICAL HISTORY Diagnosis Date - Exotropia adult onset - Hyperlipidemia OPERATIONS: PAST SURGICAL HISTORY Procedure Laterality Date - CATARACT EXTRACTION HX Right 2013 - COLONOSCOP W/ OR W/O [facility] SPEC 09/2002 negative by report - COLONOSCOP W/ OR W/O [facility] SPEC 03/15/13 normal colonoscopy - 10 year follow up - LAPAROSCOPIC CHOLEYCYSTECTOMY 2002 - PAST SURGICAL HISTORY OF left cataract removal - TOTAL ABDOM HYSTERECTOMY 2001 SANJEEV/BSO-benign growth on tube CURRENT MEDICATIONS: Current Outpatient Prescriptions: Cholecalciferol, Vitamin D3, (VITAMIN D-3) 2,000 unit cap Take 2 capsules by mouth once daily. Disp: Rfl: Aspirin 81 mg Tab Take 1 tablet by mouth once daily. Take with food. Disp: 30 tablet Rfl: 11 lutein 40 mg cap Take 1 capsule by mouth once daily. Disp: Rfl: 0 vitamin b complex (B COMPLETE) Tab Take 1 tablet by mouth once daily. Disp: Rfl: 0 Green Tea [place] Extract 315 mg cap Take 2 capsules by mouth once daily. Disp: Rfl: 0 Zazbpfopbod-Ohfrzlyjb-Wbn C-Mn (GLUCOSAMINE CHONDROITIN MAXSTR) 500-400 mg cap Take 1 capsule by mouth three times daily. Disp: Rfl: 0 cinnamon bark-chromium picolin 500-100 mg-mcg cap Take 1 capsule by mouth once daily. Disp: Rfl: 0 COMPOUNDED PRESCRIPTION Take 1 capsule by mouth once daily. G.H.3 1 capsule daily Disp: Rfl: 0 amLODIPine (NORVASC) 10 mg tablet Disp: Rfl: lisinopril (ZESTRIL, PRINIVIL) 10 mg tablet Disp: Rfl: rosuvastatin (CRESTOR) 20 mg tablet Disp: Rfl: niacin sustained release (NIASPAN) 500 mg tablet Take 3 tablets by mouth daily Disp: Rfl: coenzyme Q10 100 mg cap Take 2 capsules by mouth once daily. Disp: Rfl: 0 No current facility-administered medications for this visit. ALLERGIES: Aloe; Crestor [Rosuvastatin Calcium]; Azfkatd-Seq-Awe Reductase Inhibitors PERSONAL HISTORY: Social History Marital status: Spouse name: Years of education: Number of children: 3 Occupational History Occupation Employer Comment [employer] Social History Main Topics Smoking status: Never Smoker Smokeless tobacco: Never Used Alcohol use: No Drug use: No Sexual activity: Not Currently Partners with: Male Social History Narrative x 2. Moved to [place] from [place] 2006. Originally from [place]. FAMILY HISTORY: FAMILY HISTORY Problem Relation Age of Onset - Diabetes Mother - Heart Mother no VA/CABG - Diabetes Brother - Coronary Artery Disease Brother heart attacks - Prostate Cancer Brother - Ovarian cancer Sister - Hypertension Sister - Prostate Cancer Father - COPD Father asbestos - Coronary Artery Disease Brother - Coronary Artery Disease Maternal Uncle REVIEW OF SYMPTOMS: The review of systems data was entered by the nurse and reviewed by me REVIEW OF SYSTEMS: General: The patient denies fatigue, denies weight loss, denies weight gain, denies feeling hot, and denies feelings of cold. Eyes: The patient denies glaucoma, NOTES eye injury/surgery, does not wear glasses or contacts. Ear/Nose/Throat: The patient denies allergies, denies hayfever, denies ear infections, and denies bloody noses. Cardiovascular: The patient denies chest pain, denies heart disease, NOTES high blood pressure,denies cardiac stent, denies prior heart attack, denies irregular heart beat, NOTES high cholesterol, denies poor circulation, denies heart failure, other cardiac issues, denies claudication, denies cold feet, denies peripheral arterial stent. Respiratory: The patient denies tuberculosis, denies pneumonia, denies frequent cough, denies pulmonary embolism, denies shortness of breath, and denies coughing up blood. Gastrointestinal: The patient denies difficulty swallowing, denies acid reflux, denies ulcers, denies vomiting, denies jaundice/hepatitis, denies gallbladder problems, denies black or tarry stools, denies hemorrhoids, denies bleeding from rectum, denies diverticulitis, denies constipation, denies diarrhea, denies loss of stool control, and denies hernias. Kidney/Bladder: The patient denies kidney stones, denies urine infections, and denies bloody urine. Skin: The patient denies a history of skin cancer, denies bleeding/changing moles, and denies a history of skin rash. Neurologic: The patient denies a history of epilepsy/convulsions, denies headaches, denies head/spinal injuries, and denies stroke/TIA. Psychiatric: The patient denies psychiatric medications, denies depression, and denies voices, denies substance abuse. Endocrine: The patient denies thyroid disorders, denies diabetes, and denies hormonal problems. Hematologic: The patient denies a history of bruising, denies bleeding, and denies anemia, denies blood clots. Infections: The patient denies a history of measles and mumps, denies rheumatic fever, and denies sexually transmitted diseases. Musculoskeletal: The patient denies back pain/injury, denies back problems, denies sciatica, denies knee/foot trouble, denies arthritis, or denies gout. ? ? When was patient's last Mammogram screening? 2018 ? Last Colonoscopy: none ? Amena Paul LPN PHYSICAL EXAMINATION: General: The patient is 72 year old female, well nourished, well hydrated in no acute distress. The patient is oriented to time, place, and person. VITALS: Blood pressure 122/56, pulse 80, height 152.4 cm (5'), weight 68 kg (150 lb). Body mass index is 29.29 kg/m?. HEENT: Normal cephalic, ataumatic, pupils are equally round, sclera are anicteric, mucous membranes are moist, oropharynx is clear. Neck has no masses, asymmetry or lymphadenopathy. Thyroid is unremarkable. Respiratory: Clear to auscultation and percussion. Normal respiratory excursion and pattern. Cardiac: Examination is regular rate and rhythm. Abdominal exam: Soft, nontender, with no palpable masses. No hepatosplenomegaly. No palpable hernias. Rectal exam: exam deferred Extremities: no clubbing, cyanosis or edema. No adenopathy. Other: Location: Right upper lateral arm - 8x6cm mass consistent with clinical exam and ultrasound evaluation with a subcutaneous lipoma LABORATORY VALUES: As Noted RADIOLOGIC STUDIES: As Noted Assessment IMPRESSION: SUBCUTANEOUS MASS/PROBABLE LIPOMA - RIGHT UPPER ARM PLAN: Emelina will return for excision of the skin lesion at a later date. The patient is instructed not to take aspirin for 1 week prior to the procedure. Given the size of this lipoma I will plan to perform this in the ASC. The patient would like to have sedation at the time of the procedure. Diagnoses: (D17.21) Lipoma of right upper extremity (primary encounter diagnosis) Return to Clinic: The patient is instructed to follow-up with me 1 week post operatively. MD Amena Cabello LPN 06/11/2018 9:24 AM Signed REVIEW OF SYSTEMS: General: The patient denies fatigue, denies weight loss, denies weight gain, denies feeling hot, and denies feelings of cold. Eyes: The patient denies glaucoma, NOTES eye injury/surgery, does not wear glasses or contacts. Ear/Nose/Throat: The patient denies allergies, denies hayfever, denies ear infections, and denies bloody noses. Cardiovascular: The patient denies chest pain, denies heart disease, NOTES high blood pressure,denies cardiac stent, denies prior heart attack, denies irregular heart beat, NOTES high cholesterol, denies poor circulation, denies heart failure, other cardiac issues, denies claudication, denies cold feet, denies peripheral arterial stent. Respiratory: The patient denies tuberculosis, denies pneumonia, denies frequent cough, denies pulmonary embolism, denies shortness of breath, and denies coughing up blood. Gastrointestinal: The patient denies difficulty swallowing, denies acid reflux, denies ulcers, denies vomiting, denies jaundice/hepatitis, denies gallbladder problems, denies black or tarry stools, denies hemorrhoids, denies bleeding from rectum, denies diverticulitis, denies constipation, denies diarrhea, denies loss of stool control, and denies hernias. Kidney/Bladder: The patient denies kidney stones, denies urine infections, and denies bloody urine. Skin: The patient denies a history of skin cancer, denies bleeding/changing moles, and denies a history of skin rash. Neurologic: The patient denies a history of epilepsy/convulsions, denies headaches, denies head/spinal injuries, and denies stroke/TIA. Psychiatric: The patient denies psychiatric medications, denies depression, and denies voices, denies substance abuse. Endocrine: The patient denies thyroid disorders, denies diabetes, and denies hormonal problems. Hematologic: The patient denies a history of bruising, denies bleeding, and denies anemia, denies blood clots. Infections: The patient denies a history of measles and mumps, denies rheumatic fever, and denies sexually transmitted diseases. Musculoskeletal: The patient denies back pain/injury, denies back problems, denies sciatica, denies knee/foot trouble, denies arthritis, or denies gout. When was patient's last Mammogram screening? 2018 Last Colonoscopy: none Amena Paul LPN Referring Provider: VAN BASURTO [[id number]] Allergies As of Date: 06/10/2018 Noted Allergy Reaction ALOE 06/10/2018 2 - Rash CRESTOR (ROSUVASTATIN CALCIUM) 02/17/2013 14 - Other: See Comments Comments: Muscle aches [id number] REDUCTASE INHIBIT*02/06/2014 5 - Intolerance Comments: myalgia Date Reviewed: 06/10/2018 Reviewed by: Tim Jefferson LPN - Fully Assessed Reason for Visit: Consult [173] Cmt: Consult Lipoma Rt upper arm Primary Visit Diagnosis:Lipoma of right upper extremity [D17.21] Prescriptions as of 06/10/2018 Sig: CHOLECALCIFEROL (VITAMIN D3) * Take 2 capsules by mouth once* ASPIRIN 81 MG TABLET Take 1 tablet by mouth once d* LUTEIN 40 MG CAPSULE Take 1 capsule by mouth once * VITAMIN B COMPLEX TABLET Take 1 tablet by mouth once d* GREEN TEA LEAF EXTRACT 315 MG* Take 2 capsules by mouth once* BIFGXSDFWSG-PKQVSJBGB-UTE C-M* Take 1 capsule by mouth three* CINNAMON BARK-CHROMIUM PICOLI* Take 1 capsule by mouth once * COMPOUNDED PRESCRIPTION Take 1 capsule by mouth once * AMLODIPINE 10 MG TABLET LISINOPRIL 10 MG TABLET ROSUVASTATIN 20 MG TABLET NIACIN ER 500 MG TABLET,EXTEN* Take 3 tablets by mouth daily COENZYME Q10 100 MG CAPSULE Take 2 capsules by mouth once* Medication notes this encounter NIACIN ER 500 MG TABLET,EXTENDED RELEASE 24 HR >> Tim Jefferson LPN 06/10/2018 12:57 PM >> TIM JEFFERSON LPN [facility] Jun 10, 2018 12:57 PM Please d/c COENZYME Q10 100 MG CAPSULE >> Tim Jefferson LPN 06/10/2018 12:57 PM >> TIM JEFFERSON LPN [facility] Jun 10, 2018 12:57 PM please d/c Problem List As Of Date 06/10/2018 Noted Resolved Hyperlipidemia [E78.5] Special screening for malignant neoplasms, colo*INVALID FOR* Need for vaccination [Z23] INVALID FOR* More... Exotropia [H50.10] More... Visit Notes: >> Amena Paul LPN [facility] Jun 11, 2018 9:24 AM Status: Signed REVIEW OF SYSTEMS: General: The patient denies fatigue, denies weight loss, denies weight gain, denies feeling hot, and denies feelings of cold. Eyes: The patient denies glaucoma, NOTES eye injury/surgery, does not wear glasses or contacts. Ear/Nose/Throat: The patient denies allergies, denies hayfever, denies ear infections, and denies bloody noses. Cardiovascular: The patient denies chest pain, denies heart disease, NOTES high blood pressure,denies cardiac stent, denies prior heart attack, denies irregular heart beat, NOTES high cholesterol, denies poor circulation, denies heart failure, other cardiac issues, denies claudication, denies cold feet, denies peripheral arterial stent. Respiratory: The patient denies tuberculosis, denies pneumonia, denies frequent cough, denies pulmonary embolism, denies shortness of breath, and denies coughing up blood. Gastrointestinal: The patient denies difficulty swallowing, denies acid reflux, denies ulcers, denies vomiting, denies jaundice/hepatitis, denies gallbladder problems, denies black or tarry stools, denies hemorrhoids, denies bleeding from rectum, denies diverticulitis, denies constipation, denies diarrhea, denies loss of stool control, and denies hernias. Kidney/Bladder: The patient denies kidney stones, denies urine infections, and denies bloody urine. Skin: The patient denies a history of skin cancer, denies bleeding/changing moles, and denies a history of skin rash. Neurologic: The patient denies a history of epilepsy/convulsions, denies headaches, denies head/spinal injuries, and denies stroke/TIA. Psychiatric: The patient denies psychiatric medications, denies depression, and denies voices, denies substance abuse. Endocrine: The patient denies thyroid disorders, denies diabetes, and denies hormonal problems. Hematologic: The patient denies a history of bruising, denies bleeding, and denies anemia, denies blood clots. Infections: The patient denies a history of measles and mumps, denies rheumatic fever, and denies sexually transmitted diseases. Musculoskeletal: The patient denies back pain/injury, denies back problems, denies sciatica, denies knee/foot trouble, denies arthritis, or denies gout. When was patient's last Mammogram screening? 2018 Last Colonoscopy: none Amenadeshawn Alamokerry WOOD Encounter Status:Closed by CRISTOBAL REINA MD on 06/11/18 HOSP Observed: 06/10/2018 Status: COMPLETED Source: [place] 12:00 AM [facility] REPOSITORY Patient:Emelina Colvin MRN: <[id number]> Height:5' 0(1.524 m) Weight:149 lb 14.6 oz (68 kg) Outpatient Medications as of 07/09/18: amLODIPine (NORVASC) 10 mg tablet lisinopril (ZESTRIL, PRINIVIL) 10 mg tablet rosuvastatin (CRESTOR) 20 mg tablet Cholecalciferol, Vitamin D3, (VITAMIN D-3) 2,000 unit cap niacin sustained release (NIASPAN) 500 mg tablet Aspirin 81 mg Tab lutein 40 mg cap coenzyme Q10 100 mg cap vitamin b complex (B COMPLETE) Tab Green Tea [place] Extract 315 mg cap Nkpkwcdyevc-Mqmfrihva-Svq C-Mn (GLUCOSAMINE CHONDROITIN MAXSTR) 500-400 mg cap cinnamon bark-chromium picolin 500-100 mg-mcg cap COMPOUNDED PRESCRIPTION Admission/Clinic Administered Medications as of 07/09/18: lactated ringers infusion Problem List: Hyperlipidemia [E78.5] Special screening for malignant neoplasms, colon [Z12.11] Need for vaccination [Z23] Exotropia [H50.10] Allergies: Aloe Crestor [Rosuvastatin Calcium] Kmlmosv-Cpp-Yml Reductase Inhibitors Date Verified: 07/09/18 Lab Values No results within the last 30 days for the following basenames: K,HCT Progress Notes ([facility]): Tate Riggs 06/10/2018 1:51 PM Signed 07-06-2018 Lipoma removal Tate Riggs 06/10/2018 2:33 PM Signed 07-09-2018 Patient changed date of service. Tate Riggs Progress Notes ([facility]): Cristobal Reina MD 06/11/2018 6:36 PM Signed HISTORY AND PHYSICAL Emelina Colvin 1945 REFERRING PHYSICIAN: Van Basurto DO CHIEF COMPLAINT: skin lesion HPI: The patient is a 72 year old female. She notes a lipoma on her upper right anterior lateral form which is been growing for some time. She notes that does cause some discomfort when she leans against it and now notes a stretching living with his uncomfortable at the lower aspect of the lipoma. It is approximately 8 x 6 cm and wraps partially around the arm. She wishes to have it removed. The patient notes earlier this year she had an episode of syncope. She has had an extensive cardiac workup since that time and actually has a subcutaneous placed event recorder. This was performed by Dr. Roy SIGNIFICANT MEDICAL PROBLEMS: PAST MEDICAL HISTORY Diagnosis Date - Exotropia adult onset - Hyperlipidemia OPERATIONS: PAST SURGICAL HISTORY Procedure Laterality Date - CATARACT EXTRACTION HX Right 2013 - COLONOSCOP W/ OR W/O [facility] SPEC 09/2002 negative by report - COLONOSCOP W/ OR W/O [facility] SPEC 03/15/13 normal colonoscopy - 10 year follow up - LAPAROSCOPIC CHOLEYCYSTECTOMY 2002 - PAST SURGICAL HISTORY OF left cataract removal - TOTAL ABDOM HYSTERECTOMY 2001 SANJEEV/BSO-benign growth on tube CURRENT MEDICATIONS: Current Outpatient Prescriptions: Cholecalciferol, Vitamin D3, (VITAMIN D-3) 2,000 unit cap Take 2 capsules by mouth once daily. Disp: Rfl: Aspirin 81 mg Tab Take 1 tablet by mouth once daily. Take with food. Disp: 30 tablet Rfl: 11 lutein 40 mg cap Take 1 capsule by mouth once daily. Disp: Rfl: 0 vitamin b complex (B COMPLETE) Tab Take 1 tablet by mouth once daily. Disp: Rfl: 0 Green Tea [place] Extract 315 mg cap Take 2 capsules by mouth once daily. Disp: Rfl: 0 Drhqhnlpcuc-Yzayfaqqh-Pza C-Mn (GLUCOSAMINE CHONDROITIN MAXSTR) 500-400 mg cap Take 1 capsule by mouth three times daily. Disp: Rfl: 0 cinnamon bark-chromium picolin 500-100 mg-mcg cap Take 1 capsule by mouth once daily. Disp: Rfl: 0 COMPOUNDED PRESCRIPTION Take 1 capsule by mouth once daily. G.H.3 1 capsule daily Disp: Rfl: 0 amLODIPine (NORVASC) 10 mg tablet Disp: Rfl: lisinopril (ZESTRIL, PRINIVIL) 10 mg tablet Disp: Rfl: rosuvastatin (CRESTOR) 20 mg tablet Disp: Rfl: niacin sustained release (NIASPAN) 500 mg tablet Take 3 tablets by mouth daily Disp: Rfl: coenzyme Q10 100 mg cap Take 2 capsules by mouth once daily. Disp: Rfl: 0 No current facility-administered medications for this visit. ALLERGIES: Aloe; Crestor [Rosuvastatin Calcium]; Jpjetlf-Olv-Cam Reductase Inhibitors PERSONAL HISTORY: Social History Marital status: Spouse name: Years of education: Number of children: 3 Occupational History Occupation Employer Comment [employer] Social History Main Topics Smoking status: Never Smoker Smokeless tobacco: Never Used Alcohol use: No Drug use: No Sexual activity: Not Currently Partners with: Male Social History Narrative x 2. Moved to [place] from [place] 2006. Originally from [place]. FAMILY HISTORY: FAMILY HISTORY Problem Relation Age of Onset - Diabetes Mother - Heart Mother no VA/CABG - Diabetes Brother - Coronary Artery Disease Brother heart attacks - Prostate Cancer Brother - Ovarian cancer Sister - Hypertension Sister - Prostate Cancer Father - COPD Father asbestos - Coronary Artery Disease Brother - Coronary Artery Disease Maternal Uncle REVIEW OF SYMPTOMS: The review of systems data was entered by the nurse and reviewed by me REVIEW OF SYSTEMS: General: The patient denies fatigue, denies weight loss, denies weight gain, denies feeling hot, and denies feelings of cold. Eyes: The patient denies glaucoma, NOTES eye injury/surgery, does not wear glasses or contacts. Ear/Nose/Throat: The patient denies allergies, denies hayfever, denies ear infections, and denies bloody noses. Cardiovascular: The patient denies chest pain, denies heart disease, NOTES high blood pressure,denies cardiac stent, denies prior heart attack, denies irregular heart beat, NOTES high cholesterol, denies poor circulation, denies heart failure, other cardiac issues, denies claudication, denies cold feet, denies peripheral arterial stent. Respiratory: The patient denies tuberculosis, denies pneumonia, denies frequent cough, denies pulmonary embolism, denies shortness of breath, and denies coughing up blood. Gastrointestinal: The patient denies difficulty swallowing, denies acid reflux, denies ulcers, denies vomiting, denies jaundice/hepatitis, denies gallbladder problems, denies black or tarry stools, denies hemorrhoids, denies bleeding from rectum, denies diverticulitis, denies constipation, denies diarrhea, denies loss of stool control, and denies hernias. Kidney/Bladder: The patient denies kidney stones, denies urine infections, and denies bloody urine. Skin: The patient denies a history of skin cancer, denies bleeding/changing moles, and denies a history of skin rash. Neurologic: The patient denies a history of epilepsy/convulsions, denies headaches, denies head/spinal injuries, and denies stroke/TIA. Psychiatric: The patient denies psychiatric medications, denies depression, and denies voices, denies substance abuse. Endocrine: The patient denies thyroid disorders, denies diabetes, and denies hormonal problems. Hematologic: The patient denies a history of bruising, denies bleeding, and denies anemia, denies blood clots. Infections: The patient denies a history of measles and mumps, denies rheumatic fever, and denies sexually transmitted diseases. Musculoskeletal: The patient denies back pain/injury, denies back problems, denies sciatica, denies knee/foot trouble, denies arthritis, or denies gout. ? ? When was patient's last Mammogram screening? 2018 ? Last Colonoscopy: none ? Amena Paul LPN PHYSICAL EXAMINATION: General: The patient is 72 year old female, well nourished, well hydrated in no acute distress. The patient is oriented to time, place, and person. VITALS: Blood pressure 122/56, pulse 80, height 152.4 cm (5'), weight 68 kg (150 lb). Body mass index is 29.29 kg/m?. HEENT: Normal cephalic, ataumatic, pupils are equally round, sclera are anicteric, mucous membranes are moist, oropharynx is clear. Neck has no masses, asymmetry or lymphadenopathy. Thyroid is unremarkable. Respiratory: Clear to auscultation and percussion. Normal respiratory excursion and pattern. Cardiac: Examination is regular rate and rhythm. Abdominal exam: Soft, nontender, with no palpable masses. No hepatosplenomegaly. No palpable hernias. Rectal exam: exam deferred Extremities: no clubbing, cyanosis or edema. No adenopathy. Other: Location: Right upper lateral arm - 8x6cm mass consistent with clinical exam and ultrasound evaluation with a subcutaneous lipoma LABORATORY VALUES: As Noted RADIOLOGIC STUDIES: As Noted Assessment IMPRESSION: SUBCUTANEOUS MASS/PROBABLE LIPOMA - RIGHT UPPER ARM PLAN: Emelina will return for excision of the skin lesion at a later date. The patient is instructed not to take aspirin for 1 week prior to the procedure. Given the size of this lipoma I will plan to perform this in the ASC. The patient would like to have sedation at the time of the procedure. Diagnoses: (D17.21) Lipoma of right upper extremity (primary encounter diagnosis) Return to Clinic: The patient is instructed to follow-up with me 1 week post operatively. MD Amena Cabello LPN 06/11/2018 9:24 AM Signed REVIEW OF SYSTEMS: General: The patient denies fatigue, denies weight loss, denies weight gain, denies feeling hot, and denies feelings of cold. Eyes: The patient denies glaucoma, NOTES eye injury/surgery, does not wear glasses or contacts. Ear/Nose/Throat: The patient denies allergies, denies hayfever, denies ear infections, and denies bloody noses. Cardiovascular: The patient denies chest pain, denies heart disease, NOTES high blood pressure,denies cardiac stent, denies prior heart attack, denies irregular heart beat, NOTES high cholesterol, denies poor circulation, denies heart failure, other cardiac issues, denies claudication, denies cold feet, denies peripheral arterial stent. Respiratory: The patient denies tuberculosis, denies pneumonia, denies frequent cough, denies pulmonary embolism, denies shortness of breath, and denies coughing up blood. Gastrointestinal: The patient denies difficulty swallowing, denies acid reflux, denies ulcers, denies vomiting, denies jaundice/hepatitis, denies gallbladder problems, denies black or tarry stools, denies hemorrhoids, denies bleeding from rectum, denies diverticulitis, denies constipation, denies diarrhea, denies loss of stool control, and denies hernias. Kidney/Bladder: The patient denies kidney stones, denies urine infections, and denies bloody urine. Skin: The patient denies a history of skin cancer, denies bleeding/changing moles, and denies a history of skin rash. Neurologic: The patient denies a history of epilepsy/convulsions, denies headaches, denies head/spinal injuries, and denies stroke/TIA. Psychiatric: The patient denies psychiatric medications, denies depression, and denies voices, denies substance abuse. Endocrine: The patient denies thyroid disorders, denies diabetes, and denies hormonal problems. Hematologic: The patient denies a history of bruising, denies bleeding, and denies anemia, denies blood clots. Infections: The patient denies a history of measles and mumps, denies rheumatic fever, and denies sexually transmitted diseases. Musculoskeletal: The patient denies back pain/injury, denies back problems, denies sciatica, denies knee/foot trouble, denies arthritis, or denies gout. When was patient's last Mammogram screening? 2018 Last Colonoscopy: none Amena Paul [facility] Observed: 06/01/2018 Status: F Source: [facility] OFFICE VISIT 2:28 PM [facility] [address] [place] [address] [place] [address] OFFICE VISIT Date of Service: 06/01/18 MR#: [id number] Acct: [id number] Name: EMELINA COLVIN Rep #: [id number] : 1945 Provider: Van Basurto DO Age/Sex: 72/F Location: [facility] Status: Signed Intake Vital Signs06/01/18 Height 5 ft 1 in 06/01/18 Weight: 150 lb 06/01/18 Body Mass Index (BMI) 28.3 06/01/18 Blood Pressure 143/70 H 06/01/18 Blood Pressure Location Rt brachial Intake Visit Reasons: remove fatty tumor on arm per DECEMBER Chief Complaint: Remove fatty tumor on arm Is patient in pain?: No Allergies No Known Allergies Allergy (Verified 06/01/18 14:03) Medications Aspirin [Aspirin, Baby] 81 mg PO DAILY@0800 02/10/18 [History Confirmed 06/01/18] Glucosamine/D3/Boswellia Olimpia [Glucosamine Daily Complex Tab] 1 ea PO DAILY 02/10/18 [History Confirmed 06/01/18] amlodipine 10 mg tablet 10 mg PO DAILY #90 tab 02/18/18 [Rx Confirmed 06/01/18] lisinopril 10 mg tablet 10 mg PO QDAY #60 tab 03/23/18 [Rx Confirmed 06/01/18] rosuvastatin 10 mg tablet 10 mg PO QDAY #60 tab 03/23/18 [Rx Confirmed 06/01/18] cholecalciferol (vitamin D3) 5,000 unit capsule 5,000 unit PO QDAY 03/26/18 [History Confirmed 06/01/18] [facility] Medical History Hypertension (Chronic) Syncope (Chronic) History of hysterectomy (Resolved) Surgical History Status post placement of implantable loop recorder (Resolved 02/12/18) History of cholecystectomy (Resolved) Family History Mother Myocardial infarction Depression Brother Heart disease Lung disease Sister Lung disease Heart disease Sister Asthma Skin disease Father Lung disease Social History Smoking Status: Never smoker alcohol intake: never substance use type: does not use what type of physical activity do you participate in: none HPI HPI Chief Complaint: Remove fatty tumor on arm Details: EMELINA COLVIN, is a 72 F who presents to the office today for excision of a mass on the right arm ROS Const Constitutional: No chills, fatigue, fever(s), frequent falls, malaise, weakness, sleep problems or change in appetite Eyes Eyes: No blurry vision, change in vision, double vision, discharge or visual disturbances ENT ENT: No abnormal hearing, ear pain, ear pressure, tinnitus or dizziness/vertigo Resp Respiratory: No cough, shortness of breath or wheezing Cardio Cardiology: No chest pain at rest, chest pain with exertion, shortness of breath, dyspnea on exertion, generalized swelling, irregular heart rhythm, lightheadedness, orthopnea, fast heart rate or palpitations Gastro GI: No abdominal pain, change in bowel habits, constipation, diarrhea, nausea/dyspepsia or vomiting Genitourinary-Female: No difficulty urinating, burning urination, painful urination, urinary incontinence, urinary frequency, urinary urgency, urinary hesitancy, urinary retention, Frequent nighttime urination/ nocturia, sexual problems, genital lesions, abnormal vaginal bleeding, pelvic pain, vaginal dryness, vaginal odor or Vaginal Itching Musc Musculoskeletal: No joint pain, back pain, joint swelling, limited range of motion, muscle weakness, numbness or tingling Skin Skin: Positive for lesions (Rt upper arm); no change in skin color, itching, rash or wounds Breast Breast: No breast lump or breast pain Neuro Neurology: No frequent falls, weakness, abnormal hearing, numbness, tingling, unsteady gait/balance, dizziness, loss of vision, memory loss or visual disturbances Psych Psychiatric: No memory loss, No anxiety, No change in appetite, No depression, No Thoughts of harming yourself/Others Endo Endocrine: No fatigue, heat intolerance, increased thirst/drinking, increased hunger or increased urination Aller/Imm Allergy/Immunologic: No wheezing, itchy eyes or seasonal allergy symptoms Carlos/Lymp Hematologic/Lymphatic: No easy bleeding, easy bruising or enlarged lymph nodes Exam Const General: cooperative, healthy appearing Nutritional Appearance: average body habitus Resp Effort AND Inspection: normal respiratory effort Auscultation: Bilateral: Clear to Auscultation Musc Musculoskeletal: Yes joint tenderness (base of right thumb); no muscle weakness Skin Lesions: lesion noted (15 cm lipoma on the right arm.) Psych Affect: normal affect Assessment AND Plan Problems 1. Lipoma of right upper extremity D17.21 2. Tenosynovitis of right hand M65.9 Plan This patient presented with a lipoma on her right upper arm to remove however it was way too big for me to remove as an outpatient. The lipoma had been there for years measured 15 cm x 15 cm and since she has insurance with [facility] we referred her to Dr Ferreira for definitive surgery Orders Referrals: Coding Level of Care Code Off vis,est,level 3 Diagnoses Lipoma of right upper extremity D17.21 Laterality: right Tenosynovitis of right hand M65.9 06/01/18 1428 <Electronically signed by Van Basurto DO> Date Van Basurto DO Cosigner Signature: Date (if applicable) CC: PROGRESS Observed: 05/10/2018 Status: COMPLETED Source: [place] 10:55 AM [facility] [place] REPOSITORY O ID: [id number] Author: Cecille Pickett (Rt) Willie Moy Service: (none) Author Type: [employer]in[employer] Type: Progress Notes Filed: 05/10/2018 10:55 AM Note Text: Radiology Service Progress Note PATIENT NAME: Emelina Colvin DATE OF SERVICE: May 10, 2018 TIME: 10:55 AM PATIENT IDENTITY VERIFICATION COMPLETED USING TWO (2) METHODS: Patient confirmed name verbally and Date of . PATIENT GENDER DATA: Female. status: : No status: NO. PATIENT RELEVANT IMPLANT DATA REVIEWED: Not Applicable RADIOLOGY DEPARTMENT: General X-ray: Exam(s) Completed: Upper Extremity X-Ray(s): Wrist, right : PERIPHERAL IV DATA: Not applicable SIGNED BY: RT Ally May 10, 2018 10:55 AM XR WRIST 2V PA/LAT Observed: 05/10/2018 Status: F Source: [facility] 10:55 AM [facility] REPOSITORY * * *Final Report* * * DATE OF EXAM: May 10 2018 10:55AM WRX [id number] - XR WRIST 2V PA/LAT RT / PROCEDURE REASON: right wrist xray * * * * Physician Interpretation * * * * HISTORY: 72-YEAR-OLD FEMALE WITH right wrist xray. pt states pain for 3-4 months in right wrist pain throughout entire wrist no inj TECHNIQUE: XR WRIST 2V PA/LAT RT Laterality: RIGHT Number of different views (projections): 2 COMPARISON: None RESULT: Carpal bones, metacarpal joint spaces and carpal alignment are normal. No fracture. IMPRESSION: NO ACUTE BONY ABNORMALITY. Metal Stud Framer: DEVIN Transcribe Date/Time: May 11 2018 11:14A Dictated by : ADELINA MARK MD This examination was interpreted and the report reviewed and electronically signed by: ADELINA MARK MD on May 11 2018 11:16AM EST [id number] INTERNAL MEDICINE Observed: 04/13/2018 Status: F Source: [facility] OFFICE VISIT 8:21 AM [facility] Internal Medicine [address] [place] [address] [address] [place] [address] OFFICE VISIT Date of Service: 04/09/18 MR#: [id number] Acct: [id number] Name: EMELINA COLVIN Misty Rep #: [id number] : 1945 Provider: Rafa Galloway NP Age/Sex: 72/F Location: [facility] Status: Signed Intake Vital Signs04/09/18 Height 5 ft 1 in 04/09/18 Weight: 153 lb 04/09/18 Body Mass Index (BMI) 28.9 04/09/18 Blood Pressure 116/63 Intake Visit Reasons: SORE WRIST Chief Complaint: Sore Rt Wrist Is patient in pain?: Yes (Rt wrist) Allergies No Known Allergies Allergy (Verified 04/09/18 14:06) Medications Aspirin [Aspirin, Baby] 81 mg PO DAILY@0800 02/10/18 [History Confirmed 04/09/18] Glucosamine/D3/Boswellia Olimpia [Glucosamine Daily Complex Tab] 1 ea PO DAILY 02/10/18 [History Confirmed 04/09/18] Magnesium 1 tab PO DAILY 02/10/18 [History Confirmed 04/09/18] amlodipine 10 mg tablet 10 mg PO DAILY #90 tab 02/18/18 [Rx Confirmed 04/09/18] lisinopril 10 mg tablet 10 mg PO QDAY #60 tab 03/23/18 [Rx Confirmed 04/09/18] rosuvastatin 10 mg tablet 10 mg PO QDAY #60 tab 03/23/18 [Rx Confirmed 04/09/18] cholecalciferol (vitamin D3) 5,000 unit capsule 5,000 unit PO QDAY 03/26/18 [History Confirmed 04/09/18] coenzyme Q10 10 mg capsule 10 mg PO ONCE 03/26/18 [History Confirmed 04/09/18] potassium gluconate 550 mg (90 mg) tablet 550 mg PO QDAY tab 03/26/18 [History Confirmed 04/09/18] PFSH Medical History Hypertension (Chronic) Syncope (Chronic) Surgical History Status post placement of implantable loop recorder (Resolved 02/12/18) History of cholecystectomy (Resolved) History of hysterectomy (Resolved) Family History Mother Myocardial infarction Depression Brother Heart disease Lung disease Sister Lung disease Heart disease Sister Asthma Skin disease Father Lung disease Social History Smoking Status: Never smoker alcohol intake: never substance use type: does not use what type of physical activity do you participate in: none HPI HPI Chief Complaint: Sore Rt Wrist Details: EMELINA COLVIN, is a 72 F who presents to the office today for chronic right wrist pain. Her past medical history includes hyperlipidemia, hypertension, and syncope. Patient stated that she started having right wrist pain right below her thumb that occurred over 6 months, she is right hand dominant. She stated the pain is mild and intermittent and shooting only when does repetitive motions, rate 2-3/10. She stated that it occasionally swells and then subsides. She stated she used to wear a brace to her right years ago and it helped when she thought she had carpal tunnel. She denies need for pain medication but is utilizing capsaicin, which alleviates her pain. She denies numbness tingling to right hand, weakness or locking of joint. Patient does state that she was recently doing repetitive motion with the affected right hand and that this flared it up. Patient denies any other aggravating or alleviating factors. The patient otherwise denies any fever, chills, nausea, vomiting, shortness of breath, chest pain or pressure, palpitations, orthopnea, lower extremity edema, syncope or presyncopal episodes. ROS Const Constitutional: No chills, fatigue, fever(s), frequent falls, malaise, weakness, sleep problems or change in appetite Eyes Eyes: No blurry vision, change in vision, double vision, discharge or visual disturbances ENT ENT: No abnormal hearing, ear pain, ear pressure, tinnitus or dizziness/vertigo Resp Respiratory: No cough, shortness of breath or wheezing Cardio Cardiology: No chest pain at rest, chest pain with exertion, shortness of breath, dyspnea on exertion, generalized swelling, irregular heart rhythm, lightheadedness, orthopnea, fast heart rate or palpitations Gastro GI: No abdominal pain, change in bowel habits, constipation, diarrhea, nausea/dyspepsia or vomiting Genitourinary-Female: No difficulty urinating, burning urination, painful urination, urinary incontinence, urinary frequency, urinary urgency, urinary hesitancy, urinary retention, Frequent nighttime urination/ nocturia, sexual problems, genital lesions, abnormal vaginal bleeding, pelvic pain, vaginal dryness, vaginal odor or Vaginal Itching Musc Musculoskeletal: Positive for joint pain (Rt wrist) and joint swelling (Rt wrist); no back pain, limited range of motion, muscle weakness, numbness or tingling Skin Skin: No change in skin color, itching, rash or wounds Breast Breast: No breast lump or breast pain Neuro Neurology: No frequent falls, weakness, abnormal hearing, numbness, tingling, unsteady gait/balance, dizziness, loss of vision, memory loss or visual disturbances Psych Psychiatric: No memory loss, No anxiety, No change in appetite, No depression, No Thoughts of harming yourself/Others Endo Endocrine: No fatigue, heat intolerance, increased thirst/drinking, increased hunger or increased urination Aller/Imm Allergy/Immunologic: No wheezing, itchy eyes or seasonal allergy symptoms Carlos/Lymp Hematologic/Lymphatic: No easy bleeding, easy bruising or enlarged lymph nodes Exam Const General: cooperative, comfortable, no acute distress Nutritional Appearance: average body habitus, well nourished Orientation: alert, oriented x3 Limitations: mental status not altered [facility]: normal to inspection Ears: hearing grossly normal bilaterally Nose: external nose normal Eyes General: appearance normal, both eyes and all related structures Resp Effort AND Inspection: normal respiratory effort, able to speak in complete sentences, normal respiratory pattern, symmetric chest movement, no audible wheezes, no cough Auscultation: Bilateral: Clear to Auscultation Cardio Palpation: normal PMI Rate: regular rate Heart Sounds: S1 normal, S2 normal, normal S1 and S2, no click, no gallops, no murmurs, no rubs GI Inspection: normal to inspection Auscultation: normal bowel sounds, no hyperactive bowel sounds, no hypoactive bowel sounds Palpation: soft, no hepatosplenomegaly Musc Musculoskeletal: Yes joint tenderness (right medial wrist with movement and upon palpation ); no muscle weakness, joint redness, joint warmth or decreased ROM Other: positive Piero test crepitus noted to right medial wrist joint Skin Other: golf ball size mobile raised mass right upper arm, no pain on palpation, probable lipoma Neuro General: alert, awake, oriented x3, CN's II-XI intact bilaterally Speech: speech normal Gait: normal gait Motor: muscle tone normal throughout Extrem General: full ROM, no edema, normal to inspection, no joint enlargement Psych Appearance: grossly normal Mental Status: mental status grossly normal Affect: normal affect Attitude: cooperative Thought Process: normal Assessment AND Plan Problems 1. De Quervain's syndrome (tenosynovitis) M65.4 2. Chronic pain of right wrist M25.531; G89.29 Plan Patient has right medial wrist pain greater than 6 months intermittently and positive for Piero test. 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 Patient encouraged to wear brace at home to right wrist, apply heat or ice continue the capsaicin cream and take Tylenol arthritis or NSAIDs as needed. Discussed conservative management and decreasing the use of repetitive actions. No indication for imaging at this time. Patient to follow-up as previously scheduled or symptoms worsen. Plan Detail Follow Up as prev scheduled or sooner if needed Coding Level of Care Code Off vis,est,level 3 Diagnoses De Quervain's syndrome (tenosynovitis) M65.4 Chronic pain of right wrist M25.531; G89.29 04/13/18 0821 <Electronically signed by Rafa POSADA> Date Rafa POSADA Cosigner Signature: Date (if applicable) CC: CARDIOLOGY VISIT Observed: 03/26/2018 Status: F Source: [facility] REPORT 10:54 AM [facility] [address] [place] [address] OFFICE VISIT Date of Service: 03/26/18 MR#: [id number] Acct: [id number] Name: EMELINA COLVIN Rep #: [id number] : 1945 Provider: Liu Roy MD Age/Sex: 72/F Location: [facility] Status: Signed HPI HPI Chief Complaint: Follow up. Details: EMELINA COLVIN, is a 72 F who presents to the office today for a follow-up visit. As you remember she was brought to the emergency room because the EMS apparently found her unconscious in the parking lot outside her workplace. She apparently got out of her workplace and does not remember what happened. She was able to move herself towards her car and she found that she was bleeding. There were no apparent witnesses. This is the first episode of such an event.. She does not have a primary care physician. she remembers that she was at work this morning but she does not recall any details about being unresponsive or falling. She denied any chest pain or shortness of breath this morning. Denied dizziness or lightheadedness. Denied cough or sputum production. Denies fever chills. She denied any neck pain, or leg pain. She denied abdominal pain, nausea vomiting. She states that she does not take any prescription medications and she takes lots of vitamins and supplements. She mentioned that her blood pressure sometimes elevated, sometimes goes up to 160 systolic. She never been treated for it. In the emergency department, her blood pressure was elevated, other vital signs were stable. She was evaluated in the hospital had a CAT scan which was all normal. She was seen by cardiology in the loop recorder placed she is done well since then. Intake Vital Signs03/26/18 Height 5 ft 1 in 03/26/18 Weight: 152 lb 03/26/18 Body Mass Index (BMI) 28.7 03/26/18 Blood Pressure 122/58 03/26/18 Respiratory Rate 16 03/26/18 Pulse Rate 62 Intake Visit Reasons: DC 7-6 post implant Allergies No Known Allergies Allergy (Verified 02/18/18 16:43) Medications Aspirin [Aspirin, Baby] 81 mg PO DAILY@0800 02/10/18 [History Confirmed 03/26/18] Glucosamine/D3/Boswellia Olimpia [Glucosamine Daily Complex Tab] 1 ea PO DAILY 02/10/18 [History Confirmed 03/26/18] Magnesium 1 tab PO DAILY 02/10/18 [History Confirmed 03/26/18] amlodipine 10 mg tablet 10 mg PO DAILY #90 tab 02/18/18 [Rx Confirmed 03/26/18] lisinopril 10 mg tablet 10 mg PO QDAY #60 tab 03/23/18 [Rx Confirmed 03/26/18] rosuvastatin 10 mg tablet 10 mg PO QDAY #60 tab 03/23/18 [Rx Confirmed 03/26/18] cholecalciferol (vitamin D3) 5,000 unit capsule 5,000 unit PO QDAY 03/26/18 [History Confirmed 03/26/18] coenzyme Q10 10 mg capsule 10 mg PO ONCE 03/26/18 [History Confirmed 03/26/18] potassium gluconate 550 mg (90 mg) tablet 550 mg PO QDAY tab 03/26/18 [History Confirmed 03/26/18] [facility] Medical History Hypertension (Chronic) Syncope (Chronic) Surgical History Status post placement of implantable loop recorder (Resolved 02/12/18) History of cholecystectomy (Resolved) History of hysterectomy (Resolved) Family History Mother Myocardial infarction Depression Brother Heart disease Lung disease Sister Lung disease Heart disease Sister Asthma Skin disease Father Lung disease Social History Smoking Status: Never smoker alcohol intake: never substance use type: does not use what type of physical activity do you participate in: none ROS Const Const: Negative for fatigue, weakness, difficulty sleeping, frequent falls, excessive sweating or headache(s) Eyes Eyes: Negative for loss of peripheral vision, transient loss of vision, blurry vision, tunnel vision or double vision ENT ENT: Negative for headache(s), dizziness, Nosebleed/epistaxis or balance problems Cardio Chest Pain: No Palpitations: No Edema: None Muscle aches with walking: None Resp Respiratory: Negative for SOB with activity, SOB at rest, SOB orthopnea\SOB lying down, paroxysmal nocturnal dyspnea or Cough GI GI: Negative nausea, heartburn, black,tarry stools or vomiting : Negative for hematuria Musc Musc: Negative for balance problems, muscle aches/ myalgia, muscle weakness or joint pain Skin Skin: Negative non-healing lesions, unusual bruising or rash Neuro Neuro: Negative for weakness, frequent falls, headache(s), blurry vision, double vision, dizziness, lightheadedness, orthostatic symptoms, near syncope, syncope or lack of coordination Carlos Hematologic/Lymphatic: Negative for easy bruising or easy bleeding Endo Endo: Negative for fatigue, excessive sweating or increased thirst/drinking Psych Psych: Negative for anxiety or depression Allergy Allergy/Immunology: Negative for hives, Negative for rash Cardiology Exam Const Appearance: cooperative, healthy appearing, well developed, well groomed and no acute distress Nutritional Appearance: well nourished and average body habitus Orientation: alert, awake and oriented x3 Head Head: normal to inspection, normocephalic and atraumatic Ears: hearing grossly normal bilaterally and external ears normal Nose: external nose normal, nasal mucous membranes and turbinates normal, nares normal, septum normal, no nasal discharge Face and Sinus: face symmetric Mouth: oral mucosae normal, tongue normal, oropharynx normal and moist mucous membranes Teeth and gingiva: dentition normal Throat: posterior oropharynx normal, tonsils normal and uvula midline Eyes General: appearance normal, both eyes and all related structures Eyelids: eyelids normal Conjunctivae: conjunctivae normal Pupils: PERRL, normal by confrontation and accommodation normal EOM: EOM intact bilaterally Neck Neck: normal visual inspection, trachea midline and no JVD JVD: +5 Carotids: normal carotid upstroke and bounding pulses Chest Chest inspection: normal inspection of the chest, symmetric chest movement and normal respiratory effort Auscultation: Bilateral: Clear to Auscultation Cardio Palpation: normal PMI Rate: regular rate Rhythm: regular rhythm Heart sounds: S1 normal, S2 normal and normal, physiologic split S2; negative rub, gallop or murmur GI GI: normal to inspection, soft, no hepatosplenomegaly and bowel sounds present Neuro General: alert, awake, oriented x3, no focal sensory deficit, gait normal and moves all extremities Skin Skin: no rashes or lesions noted Extremities Pulses: Normal: Right Femoral Pulse, Left Femoral Pulse, Right Dorsalis Pedis Pulse, Left Dorsalis Pedis Pulse, Right Posterior Tibial Pulse, Left Posterior Tibial Pulse, Right Radial Pulse, Left Radial Pulse Lower Extremity Edema: None: Bilateral Musculoskel Musculoskeletal: No joint tenderness Psych Psychological: normal affect Assessment AND Plan Problems 1. Syncope R55 Plan She does have a history of syncope and has a loop recorder in place. The plan will be for her to monitor her through defibrillator and pacemaker clinic. As remember she does have preserved left ventricular systolic function. Depending on the findings from her loop recorder interrogation further recommendations will be made. She tells me that she may want to undergo breast reduction and she is currently undergoing evaluation for the above. Thank you for allowing me to participate in the care of your patient. 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) Coding Level of Care Code Off vis,est,level 3 Diagnoses Syncope R55 Coding Level of Care Code Off vis,est,level 3 Diagnoses Syncope R55 03/26/18 1054 <Electronically signed by Liu Roy MD> Date Liu Roy MD Cosigner Signature: Date (if applicable) CC: Missael Lu MD INTERNAL MEDICINE Observed: 03/23/2018 Status: F Source: [facility] OFFICE VISIT 4:43 PM [facility] Internal Medicine [facility] [place] [address] OFFICE VISIT Date of Service: 03/23/18 MR#: [id number] Acct: [id number] Name: EMELINA COLVIN Rep #: [id number] : 1945 Provider: Missael Lu MD Age/Sex: 72/F Location: [facility] Status: Signed Intake Vital Signs03/23/18 Height 5 ft 1 in 03/23/18 Weight: 154 lb 03/23/18 Body Mass Index (BMI) 29.0 03/23/18 Blood Pressure 142/66 03/23/18 Blood Pressure Location Lt brachial Intake Visit Reasons: 1 MO FU Chief Complaint: follow-up visit Is patient in pain?: No Allergies No Known Allergies Allergy (Verified 02/18/18 16:43) Medications Aspirin [Aspirin, Baby] 81 mg PO DAILY@0800 02/10/18 [History Confirmed 02/18/18] Glucosamine/D3/Boswellia Olimpia [Glucosamine Daily Complex Tab] 1 ea PO DAILY 02/10/18 [History Confirmed 02/18/18] Magnesium 1 tab PO DAILY 02/10/18 [History Confirmed 02/18/18] amlodipine 10 mg tablet 10 mg PO DAILY #90 tab 02/18/18 [Rx Confirmed 02/18/18] lisinopril 10 mg tablet 10 mg PO QDAY #60 tab 03/23/18 [Rx Confirmed 03/23/18] rosuvastatin 10 mg tablet 10 mg PO QDAY #60 tab 03/23/18 [Rx Confirmed 03/23/18] Post menopausal: Yes PFSH Medical History Hypertension (Chronic) Syncope (Chronic) Surgical History Status post placement of implantable loop recorder (Resolved 02/12/18) History of cholecystectomy (Resolved) History of hysterectomy (Resolved) Family History Mother Myocardial infarction Depression Brother Heart disease Lung disease Sister Lung disease Heart disease Sister Asthma Skin disease Father Lung disease Social History Smoking Status: Never smoker alcohol intake: never substance use type: does not use what type of physical activity do you participate in: none HPI HPI Chief Complaint: follow-up visit Details: EMELINA COLVIN, is a 72yo F who presents to the office today for follow-up of her blood pressure. Repeat blood pressure 142/66 down from the 150s at her last visit. She reports compliance with her medications. She also had a recent lipid profile done which showed elevated LDH and total cholesterol. Also showed elevated triglycerides. She reports a chronic history of hyperlipidemia which has been difficult to control. Currently not on any medication for her lipids. Mammogram which is stable. Her repeat mammogram in one year recommended. Last colonoscopy was said to be 5 years ago and most recent BMD done was normal. She however reports neck and back pain which has been ongoing for several years due to large size breasts. She is considering breast reduction surgery. ROS Const Constitutional: No weight change, body ache, chills, fatigue, sleep problems, fever(s), change in appetite, snoring, weakness, frequent falls, headache(s) or excessive sweating Eyes Eyes: No change in vision, eye pain, light sensitivity or blurry vision ENT ENT: No headache(s), abnormal hearing, ear pain, tinnitus, nasal congestion, sore throat or neck pain Resp Respiratory: No snoring, cough, shortness of breath or wheezing Cardio Cardiology: No excessive sweating, chest pain at rest, chest pain with exertion, shortness of breath, dyspnea on exertion, palpitations, orthopnea or lightheadedness Gastro GI: No abdominal pain, change in bowel habits, constipation, diarrhea, vomiting, nausea/dyspepsia or cramping Genitourinary-Female: No burning urination, painful urination, urinary incontinence, urinary frequency, abnormal vaginal bleeding, pelvic pain or other Musc Musculoskeletal: Positive for back pain; no neck pain, abnormal walking, joint pain, limited range of motion, numbness, tingling or muscle weakness Skin Skin: No redness, dry skin, itching, lesions, wounds or rash Neuro Neurology: No weakness, frequent falls, headache(s), abnormal hearing, abnormal walking, numbness, tingling, abnormal speech, dizziness or memory loss Psych Psychiatric: No change in appetite, No memory loss, No anxiety, No depression, No Thoughts of harming yourself/Others Endo Endocrine: No fatigue, excessive sweating, cold intolerance, increased thirst/drinking, heat intolerance, flushing or increased hunger Aller/Imm Allergy/Immunologic: No wheezing, itchy eyes, hives or seasonal allergy symptoms Carlos/Lymp Hematologic/Lymphatic: No easy bleeding, easy bruising or enlarged lymph nodes Exam Const General: cooperative, no acute distress Orientation: alert, awake, oriented x3 HENMT Head: atraumatic, normocephalic Ears: hearing grossly normal bilaterally Resp Effort AND Inspection: normal respiratory effort, able to speak in complete sentences Auscultation: Bilateral: Clear to Auscultation Cardio Rate: regular rate Rhythm: regular rhythm Heart Sounds: S1 normal, S2 normal GI Palpation: soft, no hepatosplenomegaly Musc Musculoskeletal: No muscle weakness Neuro General: alert, awake, oriented x3, moves all extremities, CN's II-XI intact bilaterally Extrem General: pedal edema bilaterally Location: of the ankle Psych Appearance: grossly normal Mental Status: mental status grossly normal Mood: congruent mood Affect: normal affect Assessment AND Plan 1. Hypertension I10 Plan Still not well-controlled. Due to ? Syncopal episode, will hold off diuretics for concerns for orthostatic hypotension. Will start on lisinopril 10 mg daily. Dietary and lifestyle modifications discussed. Follow-up in 3 months Orders Orders: 2. Hyperlipidemia E78.5 Plan Chronic history of poorly controlled cholesterol. Said to have tolerated Crestor in the past. Will restart at 10 mg daily, increase to 20 mg after a month. Lipid profile and CMP in 3 months. Follow-up in 3 months. Orders Orders: 3. Macromastia N62 Plan Chronic. Not concerning due to significant back and neck pain. Referred to plastic surgery for possible breast reduction surgery. Orders Referrals: 4. Healthcare maintenance Z00.00 Plan Recent mammogram within normal. Last colonoscopy was said to be 5 years ago. Most recent DEXA scan also said to be within normal. Patient will get a copy over to us. This note was generated with [employer] dictation software. It may contain incorrect words, spelling, and punctuation that were not noted in checking the note before signing. Plan Detail Other Medications New: Follow Up 3 Months Coding Level of Care Code Off vis,est,level 4 Diagnoses Hypertension I10 Hyperlipidemia E78.5 Macromastia N62 Healthcare maintenance Z00.00 03/23/18 1643 <Electronically signed by Missael Lu MD> Date Missael Lu MD Cosigner Signature: Date (if applicable) CC: LIPID PANEL, BASIC Collected: 03/19/2018 Status: F Source: [place] 9:35 AM [facility] REPOSITORY TYPE CODE TESTS RESULT OUT OF REFERENCE UNITS RANGE LAB CHOL <200 mg/dL Cholesterol High 272 Result Comment: <200 mg/dL, Desirable 200-239 mg/dL, Borderline high >239 mg/dL, High LAB TRIGLY <150 mg/dL Triglyceride High 222 Result Comment: <150 mg/dL, Normal 150-199 mg/dL, Borderline high 200-499 mg/dL, High >499 mg/dL, Very high LAB HDL >39 mg/dL HDL-Cholesterol Low 39 Result Comment: 40-59 mg/dL, Acceptable >59 mg/dL, High: Negative risk factor for coronary heart disease <40 mg/dL, Low: Positive risk factor for coronary heart disease LAB LDL <100 mg/dL LDL-Cholesterol High 189 Result Comment: <100 mg/dL, Optimal 100-129 mg/dL, Near optimal/above optimal 130-159 mg/dL, Borderline high 160-189 mg/dL, High >189 mg/dL, Very high Secondary prevention optimal LDL Cholesterol levels are recommended to be < 70 mg/dL LAB NONHDL <130 mg/dL Non HDL High Cholesterol 233 Result Comment: <130 mg/dL, Optimal 130-159 mg/dL, Near optimal/above optimal 160-189 mg/dL, Borderline high 190-219 mg/dL, High >219 mg/dL, Very high Secondary prevention optimal non HDL Cholesterol levels are recommended to be < 100 mg/dL LAB FT hrs Fasting Time 12 LAB VLDL <30 mg/dL High VLDL Cholesterol 44 LAB TCHDL <5.10 High TC:HDL Ratio 6.97 LAB LDLHDL <2.54 High LDL:HDL Ratio 4.85 Result Comment: Reference: 1. National Cholesterol Education Program ATP III Guideline At-A-Glance Quick Desk Reference: National Heart, Lung, and Blood Confluence. National Institutes of Health. 2001: NIH Publication No. 01-3305. 2. An International Atherosclerosis Society position paper: global recommendations for the management of dyslipidemia: executive summary, Atherosclerosis. 2014: 232(2):410-413. Performed By: #### LIPB #### [facility] [address] [place], [place] [address] CNCO Observed: 03/03/2018 Status: COMPLETED Source: [place] 8:29 AM [facility] REPOSITORY HNO ID: [id number] Author: Mammography Coordinator Service: (none) Author Type: Physician Type: Letter Filed: 03/04/2018 11:31 PM Note Text: March 03, 2018 PID: [id number] Emelina Colvin [address] [place] [address] Dear Ms. Colvin, We are pleased to inform you that the results of your recent breast imaging exam on 03/03/2018 are normal. Early detection of cancer is very important. We also understand recommendations regarding breast cancer screening are controversial. Please discuss with your primary care provider which strategy is best for you and whether a mammogram is right for you. Your imaging studies and report will be kept on file at [facility] as part of your permanent medical record and are available for your continuing care. Thank you for allowing us to help in meeting your health care needs. Sincerely, Dr. Bhatia Interpreting Radiologist [facility] (Normal over 40) [facility] SCREENING Observed: 03/03/2018 Status: F Source: [place] 8:18 AM [facility] REPOSITORY * * *Final Report* * * DATE OF EXAM: Mar 03 2018 8:18AM [facility] 0581 - [facility] SCREENING / PROCEDURE REASON: SCREENING FOR BREAST CANCER * * * * Physician Interpretation * * * * RESULT: #[id number] - [facility] SCREENING BILATERAL DIGITAL SCREENING MAMMOGRAM WITH CAD: 03/03/2018 HISTORY: Screening For Breast Cancer\ Screening Mammogram - patient reports NO breast symptoms /priors available for comparison. RESULT: TECHNIQUE: The study was acquired using full field digital technology and interpreted from soft copy. Current study was also evaluated with a Computer Aided Detection (CAD). Comparison is made to exams dated: 03/22/2013 mammogram - [facility] and 02/23/2013 mammogram - [facility]. There are scattered fibroglandular elements in both breasts. No significant masses, calcifications, or other findings are seen in either breast. There has been no significant interval change. IMPRESSION: NEGATIVE There is no mammographic evidence of malignancy.A 1 year screening mammogram is recommended. Graciela Bhatia M.D. jr/penrad:03/03/2018 08:29:31 Social Worker Aide: Kiana MENA(Yady)(M), [facility] letter sent: Normal over 40 Mammogram BI-RADS: 1 Negative Metal Stud Framer: Andrew Transcribe Date/Time: Mar 03 2018 8:19A Dictated by: GRACIELA BHATIA MD This examination was interpreted and the report reviewed and electronically signed by: GRACIELA BHATIA MD on Mar 03 2018 8:29AM EST [id number] INTERNAL MEDICINE Observed: 02/19/2018 Status: F Source: [place] OFFICE VISIT 12:51 PM [facility] Internal Medicine [address] [place] [address] [place] [address] OFFICE VISIT Date of Service: 02/18/18 MR#: [id number] Acct: [id number] Name: EMELINA COLVIN Rep #: [id number] : 1945 Provider: Missael Lu MD Age/Sex: 72/F Location: [facility] Status: Signed Intake Vital Signs02/18/18 Height 5 ft 1 in 02/18/18 Weight: 157 lb 02/18/18 Body Mass Index (BMI) 29.6 02/18/18 Blood Pressure 159/73 Intake Visit Reasons: EST PCP, S/P HOSP, SUTURE REMOVAL Chief Complaint: Est PCP, Post Hosp AND Suture removal Is patient in pain?: No Allergies No Known Allergies Allergy (Verified 02/18/18 16:43) Medications Aspirin [Aspirin, Baby] 81 mg PO DAILY@0800 02/10/18 [History Confirmed 02/18/18] Glucosamine/D3/Boswellia Olimpia [Glucosamine Daily Complex Tab] 1 ea PO DAILY 02/10/18 [History Confirmed 02/18/18] Magnesium 1 tab PO DAILY 02/10/18 [History Confirmed 02/18/18] amlodipine 10 mg tablet 10 mg PO DAILY #90 tab 02/18/18 [Rx Confirmed 02/18/18] PFSH Medical History High blood pressure (Chronic) Surgical History History of cholecystectomy (Acute) History of hysterectomy (Acute) Family History Mother Myocardial infarction Depression Brother Heart disease Lung disease Sister Lung disease Heart disease Sister Asthma Skin disease Father Lung disease Social History Smoking Status: Never smoker alcohol intake: never substance use type: does not use what type of physical activity do you participate in: none HPI HPI Chief Complaint: Est PCP, Post Hosp AND Suture removal Details: EMELINA COLVIN, is a 72yo F who presents to the office today for follow up of recent hospital admission for syncope and to establish care. She has no acute complaints at this time. She is unsure of events surrounding her fall and denies any prior episodes. Investigations done during hospital stay were without any significant abnormality. She has done well since discharge. She was started on Amlodipine for her blood pressure. Blood pressure is still not optimally controlled. She reports compliance with her diet and medications. ROS Const Constitutional: No chills, fatigue, fever(s), frequent falls, malaise, weakness, sleep problems or change in appetite Eyes Eyes: No blurry vision, change in vision, double vision, discharge or visual disturbances ENT ENT: No abnormal hearing, ear pain, ear pressure, tinnitus or dizziness/vertigo Resp Respiratory: No cough, shortness of breath or wheezing Cardio Cardiology: No chest pain at rest, chest pain with exertion, shortness of breath, dyspnea on exertion, generalized swelling, irregular heart rhythm, lightheadedness, orthopnea, fast heart rate or palpitations Gastro GI: No abdominal pain, change in bowel habits, constipation, diarrhea, nausea/dyspepsia or vomiting Genitourinary-Female: No difficulty urinating, burning urination, painful urination, urinary incontinence, urinary frequency, urinary urgency, urinary hesitancy, urinary retention, Frequent nighttime urination/ nocturia, sexual problems, genital lesions, abnormal vaginal bleeding, pelvic pain, vaginal dryness, vaginal odor or Vaginal Itching Musc Musculoskeletal: No joint pain, back pain, joint swelling, limited range of motion, muscle weakness, numbness or tingling Skin Skin: Positive for rash (Rt side of stomach area) and wounds (Laceration on nose needs sutures removed); no change in skin color or itching Breast Breast: No breast lump or breast pain Neuro Neurology: No frequent falls, weakness, abnormal hearing, numbness, tingling, unsteady gait/balance, dizziness, loss of vision, memory loss or visual disturbances Psych Psychiatric: No memory loss, No anxiety, No change in appetite, No depression, No Thoughts of harming yourself/Others Endo Endocrine: No fatigue, heat intolerance, increased thirst/drinking, increased hunger or increased urination Aller/Imm Allergy/Immunologic: No wheezing, itchy eyes or seasonal allergy symptoms Carlos/Lymp Hematologic/Lymphatic: No easy bleeding, easy bruising or enlarged lymph nodes Exam Const General: cooperative, no acute distress Orientation: alert, awake, oriented x3 HENMT Head: abrasion Ears: hearing grossly normal bilaterally Resp Effort AND Inspection: normal respiratory effort, able to speak in complete sentences Auscultation: Bilateral: Clear to Auscultation Cardio Rate: regular rate Rhythm: regular rhythm Heart Sounds: S1 normal, S2 normal GI Palpation: soft, no hepatosplenomegaly Musc Musculoskeletal: No muscle weakness Neuro General: alert, awake, oriented x3, moves all extremities, CN's II-XI intact bilaterally Extrem General: no clubbing, cyanosis or edema Psych Appearance: grossly normal Mental Status: mental status grossly normal Mood: congruent mood Affect: normal affect Assessment AND Plan 1. Syncope R55 Plan No further episodes since discharge. Investigations so far with no significant finding. She denies substance abuse. No prior episodes. Has a recorder placed by cardiology. Will follow 2. Head injury S09.90XA Plan Sutures removed today. Wound margins well apposed. 3. Hypertension I10 Plan Not optimally controlled. Increase Amlodipine to 10mg daily. Continue life style modifications. Lipid profile ordered. Orders Orders: 4. Health maintenance alteration Z78.9 Plan Mammogram ordered. Address screening colonoscopy at next visit. Plan Detail Other Orders Orders: Other Medications Changed: Coding Level of Care Code Off vis,est,level 4 Diagnoses Syncope R55 Head injury S09.90XA Hypertension I10 Health maintenance alteration Z78.9 02/19/18 1251 <Electronically signed by Missael Lu MD> Date Missael Lu MD Cosigner Signature: Date (if applicable) CC: ELECTROENCEPHALOGRAM Observed: 02/17/2018 Status: F Source: [place] 2:55 PM [facility] Pulmonary Services/Neurology [address] [place] [address] MR#: [id number] Acct: [id number] Name: EMELINA COLVIN Rep #: [id number] : 1945 72 From: Simran Garcia MD Referring Dr: Rafa Fernández DO Status: DIS IN Ordering Dr: Date: Location: [place] [address] Sex: F C - Electroencephalogram Date of service: 02/12/2018 History EEG is being done in this 72 yr F to rule out seizures EEG Description: This is an 18 channel EEG with 10-20 lead placement system. Bipolar montages, Referential and Circumferential montages were reviewed. Photic stimulation and Hyperventilation were performed. The posterior dominant background rhythm is 10 HZ synchronous, symmetric, reacting to eye opening and closing. Photo stimulation elicited normal driving response but no abnormal photoparoxysmal response, Hyperventilation did not elicit any abnormal photoparoxysmal response. There is consistent EKG artifact noted during the record. Sleep was identified. There was no epileptiform discharges or electrographic seizures noted during this recording. EEG Interpretation This is a normal awake and asleep EEG. There is no epileptiform discharges or electrographic seizures noted during the record. 02/17/18 1455 <Electronically signed by Simran Garcia MD> Date Simran Garcia MD CC: No Primary Care Physician; Bayron Garcia MD; Rafa Fernández DO Date Dictated: 02/14/18 1350 Date Transcribed: 02/14/18 1350 Metal Stud Framer: RSR Signed 12 LEAD ELECTROCARDIOGRAM Observed: 02/15/2018 Status: F Source: [place] 3:43 PM [facility] Cardiovascular Services [address] [place] [address] 12 Lead EKG 02/10/18 1510 MR#: [id number] Acct: [id number] Name: EMELINA COLVIN Rep #: [id number] : 1945 72 From: Liu Roy MD Attending Dr: Rafa Fernández DO Status: DIS IN Ordering Dr: Luiza Melton DO Date: 02/10/18 Location: [facility] Sex: F C Admitted: 02/10/18 Test Reason : FALL Blood Pressure : / mmHG Vent. Rate : 082 BPM Atrial Rate : 082 BPM P-R Int : 176 ms QRS Dur : 086 ms QT Int : 378 ms P-R-T Axes : 040 -06 057 degrees QTc Int : 441 ms Normal sinus rhythm Nonspecific ST abnormality Abnormal ECG Confirmed by LIU ROY MD ([id number]), editor news TOMY RIGGS ([id number]) on 02/15/2018 3:43:17 PM Referred By: MIGUEL Confirmed By:LIU ROY MD 02/15/18 1543 Date Liu Roy MD CC: No Primary Care Physician; Rafa Fernández DO; Luiza Melton DO Signed DISCHARGE SUMMARY Observed: 02/12/2018 Status: F Source: [place] 12:23 PM [facility] Medical Records Department [address] [place] [address] Discharge Summary 02/12/18 1114 MR#: [id number] Acct: [id number] Name: EMELINA COLVIN Rep #: [id number] : 1945 72 From: Laney Wright F[employer] SP[employer]ER-C PCP: Care Physician, No Primary Status: ADM IN Y Location: [place] [id number] ADDENDUM by Rafa Fernández DO on 02/12/18 at 1223 Code Visit Inpatient E AND M: [id number] Disch Hosp 02/12/18 1223 <Electronically signed by Rafa Fernández DO> Date Rafa Fernández DO cc: FILLER SP[employer]ER-C Laney Wright; No Primary Care Physician; Missael Lu MD; Rafa Fernández DO * Signed Discharge Date and Diagnosis Date of Admission: 02/10/18 Date of Discharge: 02/12/18 - Primary Discharge Diagnosis Active and Suspected Problems 1. Syncopal episode, unclear etiology-status post loop recorder placement 2. Fall prior to admission with multiple facial lacerations and scalp hematoma/head contusion secondary to #1 3. Asymptomatic bacteriuria 4. Newly diagnosed hypertension Hospital Course and Treatment Imaging Results: Diagnostic Data Brain CT 02/10/18 14:25 IMPRESSION: Normal unenhanced CT scan of the brain. Electronically Signed: Sai Casey MD at 14:57 EDT , Service support , Chest X-Ray 02/10/18 14:25 IMPRESSION: Normal x-ray examination of the chest. Electronically Signed: Sai Casey MD at 15:15 EDT , Service support , Cervical Spine CT 02/10/18 14:26 IMPRESSION: There is no definite acute fracture/dislocation. Degenerative changes. Electronically Signed: Sai Casey MD at 15:14 EDT , Service support , Brain MRI 02/11/18 11:17 IMPRESSION: Findings which may be consistent with subtle post traumatic hemorrhagic contusions within the inferior frontal lobes Electronically Signed: Dwight Hartmann MD at 16:17 EDT , Service support , Dr. Roy- Cardiology Operations: None Procedures: 2-D Echocardiogram, Electroencephalogram, - - Loop recorder placement Summary of Care Provided: The patient is a 72 year old F admitted 02/10/2018 due to syncopal episode with associated fall and head injury. No previous medical history. 1. Syncope, unclear etiology-orthostatic vitals negative. Troponin negative. Echocardiogram shows an EF of 65%, RVSP estimated to be [address] unremarkable. MRI unremarkable with exception of posttraumatic contusions in the inferior frontal lobe secondary to trauma. NIH 0. No arrhythmias noted on telemetry. Carotid ultrasounds show less than 50% stenosis bilaterally. Patent and antegrade vertebrals bilaterally. Dr. Roy consulted. Patient underwent loop recorder placement 02/12/2018 prior to discharge. She will follow-up with cardiology in 4-6 weeks. Follow-up with primary care physician in 1 week. EEG completed and pending at discharge. 2. Fall secondary to #1, prior to admission with multiple facial lacerations and scalp hematoma/head contusion-CT of brain without acute findings. No intracranial hemorrhage. CT of cervical spine without acute fractures or dislocations. Keep facial abrasions clean and dry. 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 3. Asymptomatic bacteriuria -urinalysis positive for leukocytes and nitrates. Urine culture positive for low colony count of E. coli. Patient initially received IV Rocephin which was then discontinued. No further antibiotic therapy necessary given patient is asymptomatic. 4. Hypertension-newly diagnosed during admission. Improved. Patient will be discharged on amlodipine 5 mg daily with further adjustments as outpatient by primary care physician. General: Alert, Oriented x3, Cooperative, No apparent distress HEENT: Atraumatic, PERRLA, EOMI, Normocephalic Oral: Moist Mucosa Neck: Supple, No JVD, Negative Carotid Bruits Lungs: Clear to auscultation, Normal air movement Cardiovascular: Regular rate, Regular Rhythm, Normal S1, Normal S2, No murmurs Abdomen: Bowel Sounds Present, Soft, Non Tender, Non-Distended Extremities: No clubbing, No cyanosis, No edema, Capillary Refill Less than 3 Seconds Skin: - - Bilateral eye ecchymosis, multiple facial abrasions. Musculoskeletal: No Tenderness to Palpation of Joints or Extremities Neurological: Cranial nerves II-XII grossly intact, Neuro grossly intact Psych/Mental Status: Normal Affect, Appropriate Patient seen exam prior to discharge. Physical assessment as noted above. Patient is stable for discharge home with implanted loop recorder. Recommend further follow-up with primary care physician and cardiology. This patient was seen by SWETHA Foote under the supervision of Dr. Fernández. Discharge Diet: Low fat/ Low Cholesterol Discharge Activity: Return to Normal Activity Call your doctor if you observe: Shortness of breath, Dizziness, Fainting spells, Chest pain, Increased palpitations (irregular heartbeat) Home Medications: Medications to take at Discharge Aspirin [Aspirin, Baby] 81 mg PO DAILY@0800 02/10/18 Glucosamine/D3/Boswellia Olimpia [Glucosamine Daily Complex Tab] 1 each PO DAILY 02/10/18 Magnesium 1 tab PO DAILY 02/10/18 Vitamin D 1 tab PO DAILY 02/10/18 Vitamin E 1 tab PO DAILY 02/10/18 Amlodipine [Norvasc] 5 mg PO DAILY #30 tab 02/12/18 Following Prescrptions Were Given to Patient: Amlodipine [Norvasc] 5 mg PO DAILY #30 tab Primary Care Physician: Care Physician,No Primary [Primary Care Provider] - Please Follow Up With: Missael Lu MD - Please make appt prior to DC When: 1 Week Please Follow Up With: Liu Roy MD When: 4-6 Weeks Disposition: Home Minutes spent on discharge:: 35 Patient Condition:: Stable Medical Necessity - Tobacco Use Smoking Status: Never smoker Meaningful Use Info Meaningful Use Diagnoses (Choose all that apply): None applicable 02/12/18 1133 <Electronically signed by Laney BATRESC> Date Laney POSADA 02/12/18 1137<Electronically signed by Rafa Fernández DO> Cosigner Signature (if applicable): Date Rafa Fernández DO CC: SWETHA Wright; No Primary Care Physician; Missael Lu MD; Rafa Fernández DO Signed DISCHARGE INSTRUCTION Observed: 02/12/2018 Status: F Source: [place] 11:14 AM [facility] Medical Records Department [address] [place] [address] Instructions for Home/Discharge Instructions 02/12/18 1108 MR#: [id number] Acct: [id number] Name: EMELINA COLVIN Rep #: [id number] : 1945 72 From: Laney POSADA PCP: Care Physician, No Primary Status: ADM IN - Discharge Diagnoses Current Active Problems: Current Active and Chronic Problems Elevated blood pressure reading (Acute) Head injury (Acute) Syncope (Acute) You will use the following diet at home:: Cardiac Discharge Activity: Return to Normal Activity Call your doctor if you observe: Shortness of breath, Dizziness, Fainting spells, Chest pain, Increased palpitations (irregular heartbeat) Allergies/Adverse Reactions: Allergies No Known Allergies Allergy (Verified 02/10/18 14:15) Medications to take at Discharge Aspirin [Aspirin, Baby] 81 mg PO DAILY@0800 02/10/18 Glucosamine/D3/Boswellia Olimpia [Glucosamine Daily Complex Tab] 1 each PO DAILY 02/10/18 Magnesium 1 tab PO DAILY 02/10/18 Vitamin D 1 tab PO DAILY 02/10/18 Vitamin E 1 tab PO DAILY 02/10/18 Amlodipine [Norvasc] 5 mg PO DAILY #30 tab 02/12/18 The following prescriptions were given: Amlodipine [Norvasc] 5 mg PO DAILY #30 tab Primary Care Physician: Care Physician,No Primary [Primary Care Provider] - Test Results: Test results from this visit will be discussed in further detail at your follow-up appointment, if applicable. Please Follow Up With: Missael Lu MD - Please make appt prior to DC When: 1 Week Please Follow Up With: Liu Roy MD When: 4-6 Weeks Proposed Discharge Date: 02/12/18 02/12/18 1114 <Electronically signed by Laney POSADA> Date Laney POSADA CC: No Primary Care Physician; Liu Roy MD CBC W/DIFF, AUTOMATED Collected: 02/12/2018 Status: F Source: [place] 7:40 AM [facility] TYPE CODE TESTS RESULT OUT OF RANGE REFERENCE UNITS LAB L100.1000 4.4-11.0 K/mm3 Normal WBC 6.6 LAB L100.1200 4.2-5.4 M/mm3 Low RBC 4.15 LAB L100.1300 12.0-15.0 g/dl Normal HGB 12.5 LAB L100.1400 37-47 % Normal HCT 37.4 LAB L100.1500 81-99 fL Normal MCV 90.1 LAB L100.1600 27.0-32.0 pg Normal MCH 30.1 LAB L100.1700 32-36 g/gl Normal MCHC 33.4 LAB L100.1810 11.6-14.6 % Normal RDW CV 13.5 LAB L100.1820 35.1-43.9 fl High RDW SD 44.0 LAB L100.1900 150-450 K/mm3 Normal PLT 185 LAB L100.2000 6.2-12.0 fl Normal MPV 11.7 LAB L100.2100 47-70 % Normal NEUT% 53.6 LAB L100.2200 19-41 % Normal LY% 33.0 LAB L100.2300 0-10 % High MONO% 11.0 LAB L100.2400 0-5 % Normal EO% 1.8 LAB L100.2500 0-1 % Normal BASO% 0.6 LAB L100.2550 0.0-0.9 % Normal IM GRAN % 0.000 Result Comment: IG% - Immature Granulocytes (promyelocytes, myelocytes and metamyelocytes) > 1% indicates that a LEFT SHIFT is Present. LAB L100.2620 2.0-7.7 X10 3/uL Normal Absolute Neut 3.6 LAB L100.2720 0.83-4.51 X10 3/ul Normal Absolute Lymph 2.19 Performed By: #### L100.0100, L500.2500 #### [facility] [address] [facility] [place], [place], [address] BASIC METABOLIC Collected: 02/12/2018 Status: F Source: [place] PROFILE ([facility]) 7:40 AM [facility] TYPE CODE TESTS RESULT OUT OF RANGE REFERENCE UNITS LAB L501.0100 74-106 mg/dL Normal GLU 90 Result Comment: Please note revised GLUCOSE reference range effective 2017. LAB L501.1000 7-18 mg/dL Normal BUN 10 LAB L501.1100 0.55-1.02 mg/dL Normal CREAT,SERUM 0.75 Result Comment: The validity of the calculated GFR AND GFRAA in patients over 70 years has not been determined. Clinical correlation is essential. LAB L501.1110 >60 mL/min Normal EST GFR 81 Result Comment: Non- GFR Calc LAB L501.1115 >60 mL/min Normal EST GFR - AA 98 Result Comment: GFR Calc LAB L501.1255 ml/min Normal Estimated CRCL 39.50 LAB L501.1300 10-20 RATIO Normal BUN/CRE 13.3 LAB L501.2200 8.5-10 mg/dL Normal .1 CA 8.5 LAB L501.5300 136-14 mmol/L Normal 5 NA 142 LAB L501.5600 3.5-5. mmol/L Normal 1 K 4.0 LAB L501.5900 98-107 mmol/L High CL 111 LAB L501.6100 21.0-3 mmol/L Normal 2.0 CO2 23.0 LAB L501.6200 5-15 Normal GAP 8 Performed By: #### L100.0100, L500.2500 #### [facility] [address] [place], [address] PROTHROMBIN TIME W/INR Collected: 02/12/2018 Status: F Source: [place] 7:40 AM [facility] TYPE CODE TESTS RESULT OUT OF RANGE REFERENCE UNITS LAB L300.4150 11.7-14.9 SECONDS Normal PROTIME 13.5 LAB L300.4200 Normal INR 1.0 Performed By: #### L300.3900, L300.4310 #### [facility] [address] [place], [address] PARTIAL THROMBOPLAST Collected: 02/12/2018 Status: F Source: [place] TIME 7:40 AM [facility] TYPE CODE TESTS RESULT OUT OF RANGE REFERENCE UNITS LAB L300.4310 24.1-36.2 Seconds Normal PTT 28.2 Performed By: #### L300.3900, L300.4310 #### [facility] [address] [place], [address] M R STAPH AUREUS Collected: 02/12/2018 Status: F Source: [place] DNA BY PCR 12:00 AM [facility] TYPE CODE TESTS RESULT OUT OF RANGE REFERENCE UNITS LAB L8200.1100 Negative Normal MRSA Negative RESULT Performed By: #### L8200.1000 #### [facility] [address] [place], [address] CAROTID DUPLEX Observed: 02/11/2018 Status: F Source: [place] ULTRASOUND 7:25 PM [facility] Cardiovascular Services [address] [place] [address] Carotid Duplex Ultrasound 02/11/18 0934 MR#: [id number] Acct: [id number] Name: EMELINA COLVIN Rep #: [id number] : 1945 72 From: Carroll Samuel MD Attending Dr: Mabel Hernandez MD Status: ADM IN Ordering Dr: Jake Zuluaga MD Date: 02/10/18 Location: [facility] Sex: F C Admitted: 02/10/18 Reason For Study: syncope Rt. Velocities/BP Lt. Velocities/BP Prox CCA 115/22.8 cm/sec. Prox CCA 134/21.7 cm/sec. Mid CCA 106/23.6 cm/sec. Mid CCA 123/19.9 cm/sec. Dist CCA 90.4/17.3 cm/sec. Dist CCA 93.8/19.3 cm/sec. Prox ICA 79.2/15.8 cm/sec. Prox ICA 94.4/18.2 cm/sec. Mid ICA 88.5/22.3 cm/sec. Mid ICA 82.7/22.9 cm/sec. Dist ICA 111/35.2 cm/sec. Dist ICA 104/27.6 cm/sec. Rt. ICA/CCA = 1.0. Lt. ICA/CCA = .8. Prox ECA 164/16.7 cm/sec. Prox ECA 193/15.7 cm/sec. Rt. Vert. 61.6/14.1 cm/sec. Lt. Vert. 56.3/11.1 cm/sec. Right Extracranial There is intimal thickening but no significant atherosclerotic plaque noted in the right common carotid artery. There is homogeneous, smooth atherosclerotic plaque noted in the right internal carotid artery. There is intimal thickening but no significant atherosclerotic plaque noted in the right external carotid artery. Antegrade flow is noted in the right vertebral artery. Left Extracranial There is homogeneous, smooth atherosclerotic plaque noted in the left common carotid artery. There is homogeneous, smooth atherosclerotic plaque noted in the left internal carotid artery. There is homogeneous, smooth atherosclerotic plaque noted in the left external carotid artery. Antegrade flow is noted in the left vertebral artery. Procedure Carotid Duplex 701[address]. The exam was diagnostic. Exam performed portable in patient room. Interpretation Summary Minimal smooth plague within the proximal right internal carotid with <50% stenosis. Moderate disease right external carotid Minimal smooth plague within the left proximal internal carotid with <50% stenosis. Moderate disease left external carotid Patent and antegrade vertebrals bilaterally. Ordering Physician: Jake Zuluaga Performed By: Amos Elaine, RVBlu 02/11/181924 Date Carroll Samuel MD CC: No Primary Care Physician; Mabel Hernandez MD; Jake Zuluaga Date Dictated: 02/11/18 0934 Date Transcribed: 02/11/181924 Metal Stud Framer: Signed CONSULTATION Observed: 02/11/2018 Status: F Source: [place] 5:45 PM [facility] Medical Records Department [address] [place] [address] Consultation 02/11/18 1740 MR#: [id number] Acct: [id number] Name: NGUYENEMELINA A Rep #: [id number] : 1945 72 From: Liu Roy MD PCP: Care Physician, No Primary Status: ADM IN Y [id number] Reason for Consult Date of Consultation: 02/11/18 Reason for Consultation: Syncopal episode History of Present Illness: The patient is a 72 year old F with no significant past medical history according to the patient was brought to the emergency department by EMS because she was found unconscious in the parking lot at his workplace. She apparently got out of her workplace and does not remember what happened. She was able to move herself towards her car and she found that she was bleeding. There were no apparent witnesses. This is the first episode of such an event.. She does not have a primary care physician. she remembers that she was at work this morning but she does not recall any details about being unresponsive or falling. She denied any chest pain or shortness of breath this morning. Denied dizziness or lightheadedness. Denied cough or sputum production. Denies fever chills. She denied any neck pain, or leg pain. She denied abdominal pain, nausea vomiting. She states that she does not take any prescription medications and she takes lots of vitamins and supplements. She mentioned that her blood pressure sometimes elevated, sometimes goes up to 160 systolic. She never been treated for it. In the emergency department, her blood pressure was elevated, other vital signs were stable. Her routine blood work is unremarkable. The plan is negative. EKG revealed normal sinus rhythm without evidence of acute ischemic changes. Chest x-ray showed no acute infiltrate, consolidation or effusion. CT scan brain showed no acute hemorrhage or infarction. CT cervical spine showed no acute fractures or dislocations. Urinalysis revealed cloudy urine, positive for nitrite, 0-5 WBCs and 1+ bacteria. Blood alcohol level less than 3. She is being admitted for syncope, head injury, concussion, frontal scalp hematoma, facial laceration and probable acute cystitis. Cardiology was asked to see her due to her syncope. Past Medical History Allergies/Adverse Reactions: Allergies No Known Allergies Allergy (Verified 02/10/18 14:15) Home Medications: Ambulatory Orders Medication Instructions Recorded Aspirin [Aspirin, Baby] 81 mg PO DAILY@0800 02/10/18 Glucosamine/D3/Boswellia Olimpia 1 each PO DAILY 02/10/18 Surgical History: cholecystectomy, - - Tubal ligation. 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 Denies: Chest Discomfort, Shortness of Breath, Orthopnea, PND, Peripheral Edema, Palpitations, Lightheadedness, Dizziness, Near Syncope Respiratory: Denies: Cough, Sputum Production, Hemoptysis Gastrointestinal: Denies: Hematemesis, Hematochezia, Melena Genitourinary: Denies: Dysuria, Hematuria Skin: Denies: Rash Subjectve: Pleasant lady in no apparent distress. She appears to be rather bruised. Objective: Vital Signs Temp Pulse Resp BP Pulse Ox 98.5 F 76 15 130/75 H 94 02/11/18 15:36 02/11/18 15:44 02/11/18 15:36 02/11/18 15:36 02/11/18 15:36 Oxygen Delivery Method Room Air Weight: 155 lb 13.869 oz Body Mass Index (BMI) 29.4 Orthostatic Vital Signs Start: 02/10/18 18:28 Freq: q24h Status: Active Protocol: Activity Type Activity Date Activity User E-Sign Co-Sign Detail Recorded Client Recorded Date Recorded By Document 02/11/18 05:27 [facility] [id number] 02/11/18 05:31 [facility] Orthostatic Vitals Standing -Blood Pressure (90/60-120/80) 151/64 H -Extremity Use Right Arm -Pulse Rate (60-100) 86 Sitting -Blood Pressure (90/60-120/80) 137/67 H Intake and Output for Last 24 Hours Intake Total 673 / 673 1872 / 1872 Output Total 700 / 700 1150 / 1150 Balance -27 / -27 722 / 722 General: Awake, Alert, Oriented x 3 HEENT: PERRL, EOMI, Sclera Non Icteric Neck: Supple, Good ROM, No Lymph Node Enlargement Lungs: Clear to auscultation Cardiovascular: Regular Rhythm, Normal S1, Normal S2, No Murmurs, No Rubs, No Gallops Vascular: No Carotid Bruits, Normal Femoral Pulses, Normal Radial Pulses, Normal Dorsalis Pedal Pulse, Normal Posterior Tibial Pulses Abdomen: Bowel Sounds Present, Soft, Non Tender, No HSM, No Organomegaly Extremities: No Cyanosis, No Clubbing, No edema Neurological: No Focal Motor or Sensory Deficit Psych/Mental Status: Appropriate 02/11/18 12:10: Troponin I < 0.015 02/11/18 15:10: Troponin I < 0.015 Rhythm: EKG: Normal sinus rhythm with a rate of 82 bpm ECHO: Preserved left ventricular ejection fraction with no wall motion abnormalities and no valvular abnormalities noted Assessment/Plan 1. Syncopal episode. She presents with an unwitnessed syncopal episode and thus far in the hospital has not had any rhythm abnormalities. She ruled out for myocardial infarction, and had echocardiogram demonstrated preserved ejection fraction with no wall motion abnormalities present. Blood counts and electrolytes were noted to be normal and she did not appear to be dehydrated or orthostatic. -At this time it is unclear what the etiology is now recommend that we consider an implantable loop recorder. I have discussed the above with her as well as her family and at this time she wants to think about it and we will revisit this tomorrow. -In the meantime I would recommend continuous telemetry monitoring. Thank you for allowing me to participate in the care of your patient. Please don't hesitate to call if any issues arise 02/11/18 1745 <Electronically signed by Liu Roy MD> Date Liu Roy MD Cosigner Signature (if applicable): Date CC: No Primary Care Physician; Liu Roy MD Signed TROPONIN-I Collected: 02/11/2018 Status: F Source: [place] 3:10 PM [facility] Order Comment: 'TROP' Serial specimen #1, #2 or #3: 3 TYPE CODE TESTS RESULT OUT OF RANGE REFERENCE UNITS LAB L501.4010 <0.045 ng/mL Normal < 0.015 TROPONIN-I Result Comment: TROPONIN-I EXPECTED VALUES <0.045 Negative 0.045 - 0.590 Consistent with Cardiac Damage > OR = 0.600 Critical Value Not every elevated troponin is indicative of VA. These values should be used with clinical judgement in examining the patient's clinical picture for diagnosis. To establish a diagnosis of VA versus myocardial injury, there must be a demonstrated rise and/or fall in the troponin values, in addition to ischemic symptoms, EKG changes, new regional wall motion abnormality, and/or angiographical evidence. PLEASE NOTE: REFERENCE RANGES EDITED 17 Performed By: #### L501.4010 #### [facility] [address] [place], [address] TROPONIN-I Collected: 02/11/2018 Status: F Source: [place] 12:10 PM [facility] Order Comment: 'TROP' Serial specimen #1, #2 or #3: 2 Comments: X2 to complete series TYPE CODE TESTS RESULT OUT OF RANGE REFERENCE UNITS LAB L501.4010 <0.045 ng/mL Normal < 0.015 TROPONIN-I Result Comment: TROPONIN-I EXPECTED VALUES <0.045 Negative 0.045 - 0.590 Consistent with Cardiac Damage > OR = 0.600 Critical Value Not every elevated troponin is indicative of VA. These values should be used with clinical judgement in examining the patient's clinical picture for diagnosis. To establish a diagnosis of VA versus myocardial injury, there must be a demonstrated rise and/or fall in the troponin values, in addition to ischemic symptoms, EKG changes, new regional wall motion abnormality, and/or angiographical evidence. PLEASE NOTE: REFERENCE RANGES EDITED 17 Performed By: #### L501.4010 #### [facility] [address] [place], [address] BRAIN WITHOUT Observed: 02/11/2018 Status: F Source: [place] CONTRAST 11:18 AM [facility] Imaging Services [address] [place] [address] Brain without Contrast MR#: [id number] Acct: [id number] Name: NGUYENEMELINA Misty Rep #: [id number] : 1945 F 72 From: Dwight Hartmann MD PCP: Care Physician, No Primary Status: ADM IN Study: Brain without Contrast Date of Exam: 02/11/18 Exam# [id number] Ordering Dr: Laney Wright STUDY: MRI BRAIN WITHOUT CONTRAST REASON FOR EXAM: Female, 72 years old. Disorientation, hypertension TECHNIQUE: Standardized multiplanar fat and water weighted pulse sequences were obtained. COMPARISON: CT the brain on February 10, 2018 FINDINGS: Normal size of the ventricles and extra-axial spaces for the patient's age. Normal white matter tracts of the supratentorial brain. Normal bilateral basal ganglia. Normal thalami. There is no extra-axial fluid accumulation. Normal flow voids within the major intracranial circulation suggesting patency by spin echo criteria. Normal sella turcica, pituitary gland, infundibular stalk, optic chiasm and hypothalamus. Normal tectal plate and pineal gland. Normal midbrain, abiodun and medulla. Normal cerebellum. Normal basal cisterns. Normal bilateral temporal bones. Normal bilateral internal auditory canals. Signal dropout is seen within the inferior frontal lobes bilaterally on gradient echo weighted imaging sequence which may be consistent with hemosiderin due to hemorrhagic contusions. Post surgical changes of the orbits.. Mild mucosal thickening of the maxillary and ethmoid sinuses.. Soft tissue swelling anterior to the frontal bone without evidence for skull fracture.. Normal visualized soft tissue structures. Normal visualized upper cervical spine. MRI/Brain without Contrast IMPRESSION: Findings which may be consistent with subtle post traumatic hemorrhagic contusions within the inferior frontal lobes Electronically Signed: Dwight Hartmann MD at 16:17 EDT , Service support , CC: SWETHA Wright; No Primary Care Physician Metal Stud Framer: Signed ECHOCARDIOGRAM COMPLETE Observed: 02/11/2018 Status: F Source: [place] 10:54 AM [facility] [place] Cardiovascular Services [address] [place] [address] Echo Complete 02/11/18 0902 MR#: [id number] Acct: [id number] Name: EMELINA COLVIN Rep #: [id number] : 1945 72 From: Carlos Giles MD Attending Dr: Mabel Hernandez MD Status: ADM IN Ordering Dr: Jake Zuluaga MD Date: 02/10/18 Location: [facility] Sex: F C Admitted: 02/10/18 Reason For Study: SYNCOPE Procedure This was a 2D Doppler, Color Flow transthoracic echocardiogram. The exam was of adequate technical quality. Exam performed portable in patient room. Left Ventricle Normal LV size. Left ventricular systolic function is normal. The estimated ejection fraction is 65 %. Normal diastology for age. No regional wall motion abnormalities noted. Right Ventricle Normal RV size. Normal systolic function. Atria Normal left atrium. Normal right atrium. No doppler evidence for ASD. Mitral Valve There is no mitral annular calcification. Normal mitral valve. Trivial mitral valve insufficiency. Tricuspid Valve Normal tricuspid valve. Mild tricuspid valve insufficiency. Right ventricular systolic pressure estimated to be 31 mmHg. Aortic Valve Trisinus/trileaflet aortic valve. Mild focal aortic valve thickening. Trivial aortic valve insufficiency. Pulmonic Valve The pulmonic valve is not well visualized. Great Vessels Normal sized aortic root. Pericardium/Pleural Small pericardial effusion. There are no echocardiographic indications of cardiac tamponade. MMode/2D Measurements AND Calculations LVIDd: 4.2 cm IVSd: 0.79 cm Ao root diam: 2.8 cm LVIDs: 2.1 cm LVPWd: 0.88 cm RVDd: 3.2 cm FS: 51.1 % LAV(MOD-bp): 39.8 ml LA A4 area: 18.4 cm2 RA A4 area: 10.8 cm2 LAV(MOD-bp) Indexed: 23.2 ml/m2 LAV(MOD-sp2): 27.4 ml LAV(MOD-sp4): 45.4 ml Time Measurements MV dec time: 0.21 sec Doppler Measurements AND Calculations MV E max laya: 89.2 cm/sec Lat Peak E' Laya: 7.8 cm/sec Med Peak E' Laya: 7.4 cm/sec MV A max laya: 114.4 cm/sec E/E' lat: 11.4 E/E' med: 12.1 MV E/A: 0.78 Ao V2 max: 171.4 cm/sec AI max laya: 263.4 cm/sec LV V1 max: 140.0 cm/sec Ao max P.8 mmHg AI max P.8 mmHg LV V1 max P.8 mmHg AI dec slope: 217.8 cm/sec2 AI P1/2t: 354.2 msec TR max laya: 261.2 cm/sec TR max P.7 mmHg Interpretation Summary Left ventricular systolic function is normal. The estimated ejection fraction is 65 %. Trivial mitral valve insufficiency. Mild tricuspid valve insufficiency. Mild focal aortic valve thickening. Trivial aortic valve insufficiency. Small pericardial effusion. There are no echocardiographic indications of cardiac tamponade. Right ventricular systolic pressure estimated to be 31 mmHg. Normal diastology for age. Ordering Physician: Jake Zuluaga Performed By: Nguyen Avitia, RDCS, RVT 02/11/18 1054 Date Carlos Giles MD CC: No Primary Care Physician; Mabel Hernandez MD; Jake Zuluaga Date Dictated: 02/11/18901 Date Transcribed: 02/11/181053 Metal Stud Framer: Signed Observed: 02/10/2018 Status: F Source: [place] CULTURE, URINE 8:25 PM [facility] Urine Culture ORGANISM 1: Escherichia coli [place] Count 25,000-50,000 Escherichia coli: REACTION Amoxacillin/Clavulanic Acid $ <=2 S Ampicillin $ <=2 S Ampicillin/Sulbactam $ <=2 S Cefazolin $ <=4 S Cefepime $ <=1 S Ceftriaxone $ <=1 S Ciprofloxacin $ >=4 R ESBL - Ertapenim $$$ <=0.5 S Gentamicin $ <=1 S Imipenem *NF <=0.25 S Levofloxacin $ >=8 R Nitrofurantoin $ 64 I Piperacillin/Tazobactam $$ <=4 S Tobramycin $ <=1 S Trimethoprim/Sulfametho $ <=20 S (NF) indicates non-formulary drug at [facility]. Approval by Infectious Disease Specialist required before non-formulary drugs may be ordered and/or dispensed. Performed By: #### M100.0650 #### [facility] [address] [place], [address] HISTORY AND PHYSICAL Observed: 02/10/2018 Status: F Source: [place] EXAM 5:30 PM [facility] Medical Records Department [address] [place] [address] History and Physical 02/10/18 1705 MR#: [id number] Acct: [id number] Name: EMELINA COLVIN Rep #: [id number] : 1945 72 From: Jake Zuluaga MD PCP: Care Physician, No Primary Status: REG ER Y Location: ED Problem List (1) Elevated blood pressure reading Status: Acute (2) Head injury Status: Acute (3) Syncope Status: Acute History of Present Illness Date of Admission: 02/10/18 Chief Complaint: Fall, head injury. The patient is a 72 year old F with no significant past medical history according to the patient was brought to the emergency department by EMS because she was found unconscious in the parking lot at his workplace. It is unclear what happened exactly. At this time, patient is alert and oriented 2, disoriented to time but she is not aware of what happened. He is not able to provide detailed history. She does not have a primary care physician. she remembers that she was at work this morning but she does not recall any details about being unresponsive or falling. She denied any chest pain or shortness of breath this morning. Denied dizziness or lightheadedness. Denied cough or sputum production. Denies fever chills. She denied any neck pain, or leg pain. She denied abdominal pain, nausea vomiting. She kept asking the same question what happened and where it happened. She states that she does not take any prescription medications and she takes lots of vitamins and supplements. She mentioned that her blood pressure sometimes elevated, sometimes goes up to 160 systolic. She never been treated for it. In the emergency department, her blood pressure was elevated, other vital signs were stable. Her routine blood work is unremarkable. The plan is negative. EKG revealed normal sinus rhythm without evidence of acute ischemic changes. Chest x-ray showed no acute infiltrate, consolidation or effusion. CT scan brain showed no acute hemorrhage or infarction. CT cervical spine showed no acute fractures or dislocations. Urinalysis revealed cloudy urine, positive for nitrite, 0-5 WBCs and 1+ bacteria. Blood alcohol level less than 3. She is being admitted for syncope, head injury, concussion, frontal scalp hematoma, facial laceration and probable acute cystitis. Past Medical History Allergies No Known Allergies Allergy (Verified 02/10/18 14:15) Home Medications: Ambulatory Orders Medication Instructions Recorded Aspirin [Aspirin, Baby] 81 mg PO DAILY@0800 02/10/18 Glucosamine/D3/Boswellia Olimpia 1 each PO DAILY 02/10/18 Surgical History: cholecystectomy, - - Tubal ligation. 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 Dyspnea Respiratory: Denies: Cough, Pleuritic Pain, Shortness of Breath Gastrointestinal: Denies: Abdominal Pain, Constipation, Diarrhea, Hematemesis, Hematochezia, Nausea, Melena, Vomiting Genitourinary: Denies: Dysuria, Frequency, Hematuria Musculoskeletal: Denies: Arm Pain, Back Pain, Foot Pain Skin: Denies: Dryness, Rash Neurological: Denies: Balance problems, Blurred vision, Double vision, Slurred speech, Confusion, Focal weakness, Incoordination, Numbness Psychiatric: Denies: Anxiety, Depression Endocrine: Denies: Change in Body Habitus, Polydipsia VTE Information - Inpt Only VTE Present on Admission: No VTE Mechan Device Prophylaxis: None VTE Pharm Prophylaxis ordered?: Yes Patient Problems: Active and Suspected Problems Elevated blood pressure reading (Acute) Head injury (Acute) Syncope (Acute) - Physical Exam General: Alert, Cooperative, No apparent distress, - - Oriented to self and place, disoriented to time. HEENT: PERRLA, EOMI, - - Traumatic, frontal scalp hematoma, laceration over the nasal bridge and chin. Oral: Moist Mucosa, No Gingival or Mucosal Lesions/ Ulcerations Neck: Supple, No JVD, Negative Carotid Bruits, Trachea Midline, Thyroid Normal Size and Texture Lungs: Clear to auscultation, No rhonchi, No wheeze, No rales, Diminished Cardiovascular: Regular rate, Regular Rhythm, Normal S1, Normal S2, No murmurs, PMI Normal Abdomen: Bowel Sounds Present, Soft, Non Tender, Non-Distended, No Hepato-splenomegaly Extremities: No clubbing, No cyanosis, No edema Skin: No rashes, No breakdown Lymphatic: No Cervical, Supraclavicular, or Inguinal Adenopathy Neurological: Cranial nerves II-XII grossly intact, Motor Exam 5/5 strength throughout Psych/Mental Status: Normal Affect, Appropriate Vital Signs Temp Pulse Resp BP Pulse Ox 98 F 89 17 182/85 H 96 02/10/18 14:10 02/10/18 16:48 02/10/18 16:48 02/10/18 16:48 02/10/18 16:48 Oxygen Delivery Method Room Air Weight: 159 lb 6.307 oz Body Mass Index (BMI) 29.1 Laboratory Tests Past 24 Hrs WBC 6.7 RBC 4.60 Hgb 13.8 Hct 41.0 MCV 89.1 MCH 30.0 MCHC 33.7 RDW 13.3 WBC RBC Hgb Hct MCV MCH MCHC RDW RDW Differential Plt Count MPV Immature Gran % (Auto) Neut % (Auto) Lymph % (Auto) Clinical Impression(s) from Imaging Studies Brain CT 02/10/18 14:25 IMPRESSION: Normal unenhanced CT scan of the brain. Electronically Signed: Sai Casey MD at 14:57 EDT , Service support , Chest X-Ray 02/10/18 14:25 IMPRESSION: Normal x-ray examination of the chest. Electronically Signed: Sai Casey MD at 15:15 EDT , Service support , Cervical Spine CT 02/10/18 14:26 IMPRESSION: There is no definite acute fracture/dislocation. Degenerative changes. Electronically Signed: Sai Casey MD at 15:14 EDT , Service support , Assessment/Plan All Active Problems Elevated blood pressure reading (Acute) Head injury (Acute) Syncope (Acute) This is a 72 years old female patient presented to the emergency room because of syncope, fall, head injury and facial laceration found to have probable acute cystitis. #1 syncope: Unclear etiology, history is also unclear. At this time, it is unclear if this is due to cardiogenic or neurogenic. EKG revealed normal sinus rhythm without evidence of acute ischemic changes or cardiac arrhythmias. CT scan brain was unremarkable. Blood pressure is elevated, other vital signs are stable. Routine blood work is unremarkable. Troponin is negative. Plan: Admit to PCU, cardiac monitoring, 2D echocardiogram, carotid Doppler, IV fluids, orthostatic vitals, PT OT evaluation and treatment. #2 fall/head injury/facial laceration/frontal scalp hematoma/head concussion/confusion: CT scan brain without acute findings, no intracranial hemorrhage. CT cervical spine showed no acute fractures or dislocations. She has multiple small lacerations on the forehead, over the nasal bridge and chin and those were sutured. Patient has been disappointed to time, oriented 2. She has no focal deficit. Unknown baseline mental status or orientation. Plan for close monitoring, pain control, Tylenol as needed. If patient remained disoriented, may need to do MRI brain. #3 probable acute cystitis: Urinalysis reviewed. She is asymptomatic. Plan to start IV Rocephin empirically, urine culture. #4 elevated blood pressure: Blood pressure is elevated in the 180 systolic. Patient stated that blood pressure is usually anywhere from 120s-160s systolic, never been on antihypertensive medications. Plan to start Norvasc, IV hydrazine as needed #5 DVT prophylaxis: Subcu Lovenox This note was generated with [employer] dictation software. It may contain incorrect words, spelling, and punctuation that were not noted in checking the note before signing. Code Visit Inpatient E AND M: [id number] Init Hosp L3 02/10/18 1730 <Electronically signed by Jake Zuluaga MD> Date Jake Zuluaga MD Cosigner Signature: Date (if applicable) CC: No Primary Care Physician; Jake Zuluaga Signed EMERGENCY DEPARTMENT Observed: 02/10/2018 Status: F Source: [place] SUMMARY 5:01 PM [facility] Medical Records Department [address] [place] [address] Emergency Department Summary 02/10/18 1658 MR#: [id number] Acct: [id number] Name: EMELINA COLVIN Rep #: [id number] : 1945 72 From: Luiza Melton DO PCP: Care Physician, No Primary Status: REG ER - ER Visit Summary Date of Service: 02/10/18 Chief Complaint: [Head injury] History of Present Illness: The patient is a 72 F [presents the emergency department via EMS with a head injury. Patient apparently was at work and was found outside unconscious. It is unclear what happened. Patient does not know what happened and keeps asking the same questions over and over again. Patient tells me she has a history of high cholesterol and hypertension. Patient denies being on any blood thinners. She denies any neck pain. She denies any chest pain.] Physical Examination: [HEENT-PERRLA, EOMI. Cranial nerves II through XII grossly intact. TMs clear. Mucous membranes moist. No adenopathy. Patient has a forehead hematoma with 1 cm laceration. Patient has a 1 cm laceration over her nose. Patient has a 1 cm laceration lower lip. No dental injury noted. Cardiovascular-regular rate and rhythm without murmur or ectopy Lungs-clear to auscultation, chest wall stable without crepitus or subcu emphysema Abdomen-normoactive bowel sounds, soft, nontender, no rebound or rigidity, no peritoneal signs. Extremities-intact 4, normal range of motion, normal pulses, atraumatic] Test Results: [EKG obtained on arrival shows sinus rhythm with a ventricular rate of [address] changes. CBC with differential showed a white count of 6.7, heme globin 13.8, hematocrit 41, platelets 201. Chemistries unremarkable. Troponin less than 0.015. Alcohol was less than 3. Chest x-ray showed nothing acute. CT brain showed nothing acute. CT C-spine showed no fractures] Emergency Department Course and Treatment: [Laceration repairs- wound sterilely draped and prepped. Wound cleansed with Shur-Clens and irrigated with copious saline. Using 1% lidocaine a total of 3 cc used combined to anesthetize the laceration of her forehead, nose, and lower lip. Using 6-0 nylon a total of 3 single interrupted sutures placed to the nose 1 interrupted suture placed to the forehead and one interrupted suture placed to the lower lip. Patient tolerated procedure well.] Treatment Plan: [Admit] Disposition: [Admit] Impression: [Syncope Concussion Facial lacerations-simple repair] This note was generated with [employer] dictation software. It may contain incorrect words, spelling, and punctuation that were not noted in review of the chart prior to signing ED Disposition - Plan for ED Patient: Chief Complaint: Head Injury Referrals: Care Physician,No Primary [Primary Care Provider] - What to do if you have Problems For any increased pain, shortness of breath, bleeding, nausea or vomiting, chest pain, or any unexpected problems, contact your Primary Care Provider. Call [facility] ([phone]) or report to the closest Emergency Room. Call 911 if necessary. 02/10/18 1701 <Electronically signed by Luiza Melton DO> Date Luiza Melton DO Cosigner Signature (If Indicated): Date CC: No Primary Care Physician URINALYSIS, COMPLETE Collected: 02/10/2018 Status: F Source: [place] 3:50 PM [facility] Order Comment: Order Date: 02/10/18 Has pt arrived? Y How was Urine Obtained? CLEAN CATCH TYPE CODE TESTS RESULT OUT OF RANGE REFERENCE UNITS LAB L400.3000 Yellow COLOR Normal Yellow LAB L400.3050 Clear Sl Normal CLARITY Cloudy LAB L400.3200 Normal mg/dl Normal GLUCOSE, UR Normal LAB L400.3300 Negative mg/dL Normal BILIRUBIN URINE Negative LAB L400.3400 Negative mg/dl High 5 KETONE UR LAB L400.3465 1.002-1.030 Normal SP.GR. DIPSTX 1.010 LAB L400.3550 5.0 - 8.0 pH UR Normal 7.0 LAB L400.3600 Negative mg/dl PROT Normal DIPSTX Negative LAB L400.3700 Normal mg/dl Normal UROBILI Normal LAB L400.3750 Negative High NITRITE UR Positive LAB L400.3780 Negative /ul High 25 OCCULT BLOOD-UR LAB L400.3800 Negative /ul High LEUK 25 ESTERASE LAB L400.4050 0-5 /hpf WBC Normal 0-5 SEEN LAB L400.4100 0-5 /hpf Normal RBC-UA 0-5 SEEN LAB L400.4150 5-10 /hpf SQUAM Normal EPI 0-5 SEEN LAB L400.4300 None Seen /hpf 1+ Normal BACTERIA LAB L400.4350 <or=2+ /hpf 0 Normal MUCUS, URINE SEEN Performed By: #### L400.0001 #### [facility] [address] [place], [address] CBC W/DIFF, AUTOMATED Collected: 02/10/2018 Status: F Source: [place] 2:30 PM [facility] TYPE CODE TESTS RESULT OUT OF RANGE REFERENCE UNITS LAB L100.1000 4.4-11.0 K/mm3 Normal WBC 6.7 LAB L100.1200 4.2-5.4 M/mm3 Normal RBC 4.60 LAB L100.1300 12.0-15.0 g/dl Normal HGB 13.8 LAB L100.1400 37-47 % Normal HCT 41.0 LAB L100.1500 81-99 fL Normal MCV 89.1 LAB L100.1600 27.0-32.0 pg Normal MCH 30.0 LAB L100.1700 32-36 g/gl Normal MCHC 33.7 LAB L100.1810 11.6-14.6 % Normal RDW CV 13.3 LAB L100.1820 35.1-43.9 fl Normal RDW SD 43.1 LAB L100.1900 150-450 K/mm3 Normal PLT 201 LAB L100.2000 6.2-12.0 fl Normal MPV 11.6 LAB L100.2100 47-70 % Low NEUT% 41.3 LAB L100.2200 19-41 % High LY% 48.6 LAB L100.2300 0-10 % Normal MONO% 8.2 LAB L100.2400 0-5 % Normal EO% 1.6 LAB L100.2500 0-1 % Normal BASO% 0.3 LAB L100.2550 0.0-0.9 % Normal IM GRAN % 0.000 Result Comment: IG% - Immature Granulocytes (promyelocytes, myelocytes and metamyelocytes) > 1% indicates that a LEFT SHIFT is Present. LAB L100.2620 2.0-7.7 X10 3/uL Normal Absolute Neut 2.8 LAB L100.2720 0.83-4.51 X10 3/ul Normal Absolute Lymph 3.24 Performed By: #### L100.0100 #### [facility] [address] [place], [address] BASIC METABOLIC Collected: 02/10/2018 Status: F Source: [place] PROFILE (BMP) 2:30 PM [facility] TYPE CODE TESTS RESULT OUT OF RANGE REFERENCE UNITS LAB L501.0100 74-106 mg/dL High GLU 115 Result Comment: Fasting Glucose result from 100 to 125 mg/dL suggests IMPAIRED HOMEOSTASIS per A.D.A. criteria. Please note revised GLUCOSE reference range effective 2017. LAB L501.1000 7-18 mg/dL Normal BUN 13 LAB L501.1100 0.55-1.02 mg/dL Normal CREAT,SERUM 0.93 Result Comment: The validity of the calculated GFR AND GFRAA in patients over 70 years has not been determined. Clinical correlation is essential. LAB L501.1110 >60 mL/min Normal EST GFR 63 Result Comment: Non- GFR Calc LAB L501.1115 >60 mL/min Normal EST GFR - AA 76 Result Comment: GFR Calc LAB L501.1255 ml/min Normal Estimated CRCL 44.52 LAB L501.1300 10-20 RATIO Normal BUN/CRE 13.9 LAB L501.2200 8.5-10 mg/dL Normal .1 CA 9.2 LAB L501.5300 136-14 mmol/L Normal 5 NA 143 LAB L501.5600 3.5-5. mmol/L Normal 1 K 3.6 LAB L501.5900 98-107 mmol/L Normal CL 106 LAB L501.6100 21.0-3 mmol/L Normal 2.0 CO2 28.0 LAB L501.6200 5-15 Normal GAP 9 Performed By: #### L500.2500, L501.4010 #### [facility] [address] [place], [address] TROPONIN-I Collected: 02/10/2018 Status: F Source: [place] 2:30 PM [facility] TYPE CODE TESTS RESULT OUT OF RANGE REFERENCE UNITS LAB L501.4010 <0.045 ng/mL Normal < 0.015 TROPONIN-I Result Comment: TROPONIN-I EXPECTED VALUES <0.045 Negative 0.045 - 0.590 Consistent with Cardiac Damage > OR = 0.600 Critical Value Not every elevated troponin is indicative of VA. These values should be used with clinical judgement in examining the patient's clinical picture for diagnosis. To establish a diagnosis of VA versus myocardial injury, there must be a demonstrated rise and/or fall in the troponin values, in addition to ischemic symptoms, EKG changes, new regional wall motion abnormality, and/or angiographical evidence. PLEASE NOTE: REFERENCE RANGES EDITED 17 Performed By: #### L500.2500, L501.4010 #### [facility] [place], [address] ALCOHOL, BLOOD Collected: 02/10/2018 Status: F Source: [place] (MEDICAL)-SERUM 2:30 PM [facility] TYPE CODE TESTS RESULT OUT OF RANGE REFERENCE UNITS LAB L501.9100 mg/dL Normal SERUM < 3.0 ETOH Result Comment: The serum:whole blood ethanol ratio is approximately 1.14 and varies slightly with hematocrit. Medical Alcohol reference interval and critical value in non-tolerant individuals; 50 - 100 Impairment 100 Intoxication 100 - 250 Severe Poisoning 250 - 400 Deep/possible fatal coma Performed By: #### L501.9100 #### [facility] [address] [place], [address] BRAIN/HEAD WITHOUT Observed: 02/10/2018 Status: F Source: [place] CONTRAST 2:27 PM [facility] Imaging Services [address] [place] [address] Brain/Head without Contrast MR#: [id number] Acct: [id number] Name: NGUYENGREGEMELINA Rep #: [id number] : 1945 F 72 From: Sai Casey MD PCP: NOT, DEFINED Status: PRE ER Study: Brain/Head without Contrast Date of Exam: 02/10/18 Exam# [id number] Ordering Dr: Luiza Melton DO STUDY: CT BRAIN WITHOUT CONTRAST REASON FOR EXAM: Female, 72 years old. Fall. RADIATION DOSAGE (If Supplied By Facility): CTDIvol = ( 44.99 ) mGy, DLP = ( 762.36 ) mGycm TECHNIQUE: Transaxial CT imaging of the brain was performed without administration of intravenous contrast material. Individualized dose optimization techniques were used for this CT. COMPARISON: None. FINDINGS: Prominent soft tissue swelling seen over the left forehead. No underlying fracture. Normal size ventricles and extra-axial spaces for the patient's age. Normal white matter tracts of the cerebral hemispheres. Normal basal ganglia and thalami. Normal brainstem. Normal cerebellum. There is no intracranial hemorrhage. There are no findings of an acute ischemic infarction. Normal visualized paranasal sinuses. CT/Brain/Head without Contrast IMPRESSION: Normal unenhanced CT scan of the brain. Electronically Signed: Sai Casey MD at 14:57 EDT , Service support , CC: DEFINED NOT; Luiza Melton DO Metal Stud Framer: Signed SPINE CERVICAL Observed: 02/10/2018 Status: F Source: [place] WITHOUT CONTRAS 2:27 PM [facility] Imaging Services [address] [place], [place] [address] [address] Spine Cervical without Contras MR#: [id number] Acct: [id number] Name: EMELINA COLVIN Rep #: [id number] : 1945 F 72 From: Sai Casey MD PCP: NOT, DEFINED Status: PRE ER Study: Spine Cervical without Contras Date of Exam: 02/10/18 Exam# [id number] Ordering Dr: Luiza Melton DO STUDY: CT CERVICAL SPINE WITHOUT CONTRAST REASON FOR EXAM: Female, 72 years old. Fall. Confusion. RADIATION DOSAGE (If Supplied By Facility): CTDIvol = ( 15.31 ) mGy, DLP = ( 316.72 ) mGycm TECHNIQUE: High resolution transaxial imaging was performed without contrast material. Sagittal and coronal images were reconstructed. Individualized dose optimization techniques were used for this CT. COMPARISON: None FINDINGS: No definite acute fracture/dislocation. The cervical junction is intact. C1-C2 articulation is intact. There is reversal of curvature. There is normal alignment. Facet joints are intact at all levels bilaterally. No jumped facets. There is multilevel spondyloarthropathy. Multilevel mild degenerative disc changes are seen most pronounced at C5-C6. Visualized paraspinal soft tissues and structures are unremarkable. CT/Spine Cervical without Contras IMPRESSION: There is no definite acute fracture/dislocation. Degenerative changes. Electronically Signed: Sai Casey MD at 15:14 EDT , Service support , CC: DEFINED NOT; Luiza Melton DO Metal Stud Framer: Signed CHEST 1 VIEW Observed: 02/10/2018 Status: F Source: [place] (PORTABLE) 2:27 PM [facility] REPOSITORY [facility] Imaging Services [address] [place] [address] Chest 1 View (Portable) MR#: [id number] Acct: [id number] Name: EMELINA COLVIN Rep #: [id number] : 1945 F 72 From: Sai Casey MD PCP: NOT, DEFINED Status: PRE ER Study: Chest 1 View (Portable) Date of Exam: 02/10/18 Exam# [id number] Ordering Dr: Luiza Melton DO STUDY: X-RAY CHEST REASON FOR EXAM: Female, 72 years old. Fall. TECHNIQUE: Single AP portable view of the chest. COMPARISON: None. FINDINGS: The lungs are clear and expanded. There is no demonstrated pleural abnormality. Normal size heart. Normal mediastinum and concetta. Normal visualized pulmonary arteries. Normal visualized aortic arch and descending thoracic aorta. Normal visualized thoracic spine. Normal visualized ribs, clavicles, and shoulders. There is no demonstrated abnormality of the visualized soft tissue structures of the upper abdomen. RAD/Chest 1 View (Portable) IMPRESSION: Normal x-ray examination of the chest. Electronically Signed: Sai Casey MD at 15:15 EDT , Service support , CC: DEFINED NOT; Luiza Melton DO Metal Stud Framer: Signed ALLERGIES ALLERGIES DATE TYPE / NAME / CODE REACTION SEVERITY SOURCE CODE 06/10/2018 [id number] Rep[facility] OMED CT) 06/01/2018 Drug No Known Unknown [place] Allergy/41 Allergies/[id number] [facility] [id number]([facility]RX[facility] OMED CT) Repository 02/06/2014 Drug [id number] INTOLERANCE [facility] Class/4195 REDUCTASE [place] [address](SNOM INHIBITORS Repository ED CT) 02/17/2013 DRUG ROSUVASTATIN OTHER: SEE C [facility] [place] [id number](SN Repository OMED CT) ENCOUNTERS ENCOUNTERS ADMIT/DISCHARGE ACCOUNT ADMITTING ENCOUNTER LOCATION SOURCE NUMBER CLASS 08/26/2018 [id number] Ambulatory [facility] ing:LABSPEC Repository 07/20/2018/07/22/20 [id number] Ambulatory [address] [place] Repository 07/15/2018/07/15/20 [id number] Ambulatory [address] [place] Repository 07/14/2018/07/14/20 [id number] Ambulatory BMSBuilding:B [place] 18 MS.[facility] Repository 07/09/2018/07/09/20 [id number] [place], Ambulatory [address] Repository 07/05/2018/07/05/20 [id number] Ambulatory BMSBuilding:B [place] 18 MS.[facility] Repository 06/14/2018 [id number] Ambulatory BMSBuilding:B [place] MS.[facility] Repository 06/10/2018/06/14/20 [id number] Ambulatory [address] Repository 06/01/2018/06/01/20 [id number] Ambulatory BMSBuilding:B [place] 18 MS.[facility] Repository 05/10/2018/05/10/20 [id number] Ambulatory [address] Repository 04/09/2018/04/09/20 [id number] Ambulatory BMSBuilding:B Her[place] 18 MS.[facility] Repository 03/26/2018/03/26/20 [id number] Ambulatory BMSBuilding:B Her[place] 18 MS.[facility] Repository 03/23/2018/03/23/20 [id number] Ambulatory BMSBuilding:B [place] 18 MS.[facility] Repository 03/17/2018 [id number] Ambulatory BMSBuilding:B [place] MS.[facility] Repository 03/03/2018/03/03/20 [id number] Ambulatory [address] Repository 02/18/2018/02/19/20 [id number] Ambulatory BMSBuilding:B [place] 18 MS.[facility] Repository 02/10/2018/02/13/20 [id number] [place], Inpatient Her[place] 18 Ghasem [facility] Hospital ing:PCURoom: Repository [id number]: 1 02/10/2018 [id number] [place], Ambulatory BMSBuilding:B [place] Ghasem MS.[facility] Repository 02/10/2018 [id number] [place], Ambulatory BMSBuilding:B Herb Ghasem MS.CF.[facility] Repository 02/10/2018 [id number] [place], Ambulatory BMSBuilding:B [place]b Ghasem MS.[facility]IP [facility] Repository 02/10/2018/02/13/20 [id number] Ambulatory BMSBuilding:Hola Estevez 18 MS.CF.[facility] Repository 02/10/2018 [id number] Ambulatory BMSBuilding:Hola Estevez MS.WIP [facility] Repository PAYERS PAYERS ENCOUNTER GUARANTOR PAYER SUBSCRIBER SOURCE 08/26/2018 EMELINA Jay Primary Insurance:[facility] EMELINA Estevez [id number] WILE MCRDUAL COMP HMO* NOT CIPOLLADOB: [facility] [place] CONTPolicy Number: [id number] Hospital 10379Mht: [phone] [id number] Repository [phone] () Date:7161-45-66GA [address] [address]CF: 08/26/2018 Secondary NOT GIVENUNK [place] Insurance:SELF PAY [facility] Number: Effective Repository Date:2018-08-26 07/14/2018 EMELINA Jay Primary Insurance:[facility] EMELINA Estevez [id number] WILE MCRDUAL COMP HMO* NOT CIPOLLADOB: [facility] CONTPolicy Number: [id number] Hospital 120[address]Jbg: [phone] [id number] Repository [phone] () Date:0764-64-92ZR [address] [address]OF: 07/14/2018 Secondary NOT GIVENUNK [place] Insurance:SELF PAY [facility] Number: Effective Repository Date:2018-07-14 07/05/2018 EMELINA Jay Primary Insurance:[facility] EMELINA Estevez [id number] WILE MCRDUAL COMP HMO* NOT CIPOLLADOB: [facility], [place] CONTPolicy Number: [id number] Hospital 35[address]Hmv: [phone] [id number] Repository [phone] () Date:4828-72-88BF [address] [address]PH: 07/05/2018 Secondary NOT GIVENUNK Her[place] Insurance:SELF PAY [facility] Number: Effective Repository Date:2018-06-28 06/14/2018 EMELINA Misty Primary Insurance:[facility] EMELINA Torresoster [id number] WILE MCRDUAL COMP HMO* NOT CIPOLLADOB: [facility], [place] CONTPolicy Number: [id number] Hospital 601[address]Yxg: [phone] [id number] Repository [phone] (HP) Date:7772-19-85SG [address] [place] [address]BR: 06/14/2018 Secondary NOT GIVENUNK Herb Insurance:SELF PAY [facility] Number: Effective Repository Date:2018-06-14 06/01/2018 EMELINA Misty Primary Insurance:[facility] EMELINA Torresoster [id number] WILE MCRDUAL COMP O* NOT CIPOLLADOB: [place] CONTPolicy Number: [id number] Hospital 267[address]Kkx: [phone] [id number] Repository [phone] () Date:9557-77-75FH [address] [place] [address]TU: 06/01/2018 Secondary NOT GIVENUNK Herb Insurance:SELF PAY [facility] Number: Effective Repository Date:2018-06-01 04/09/2018 EMELINA Misty Primary Insurance:[facility] EMELINA Torresoster [id number] WILE MCRDUAL COMP HMO* NOT CIPOLLADOB: [facility], [place] CONTPolicy Number: [id number] Hospital 26[address]Yge: [phone] [id number] Repository [phone] (HP) Date:0577-37-11YB [address] [place] [address]BN: 04/09/2018 Secondary NOT GIVENUNK [place] Insurance:SELF PAY [facility] Number: Effective Repository Date:2018-04-09 03/26/2018 EMELINA Misty Primary Insurance:[facility] EMELINA A Herb [id number] WILE MCRDUAL COMP HMO* NOT CIPOLLADOB: [place] CONTPolicy Number: [id number] Hospital 255[address]Sya: [phone] [id number] Repository [phone] () Date:8209-19-67YV [address] [place] [address]GC: 03/26/2018 Secondary NOT GIVENUNK [place] Insurance:SELF PAY [facility] Number: Effective Repository Date:2018-03-26 03/23/2018 EMELINA Misty Primary Insurance:[facility] EMELINA Jay Herb [id number] WILE MCRDUAL COMP HMO* NOT CIPOLLADOB: [facility] [place] CONTPolicy Number: [id number] Hospital 98277Epi: [phone] [id number] Repository [phone] () Date:4529-32-10OL [address] [address]EN: 03/23/2018 Secondary NOT GIVENUNK [place] Insurance:SELF PAY [facility] Number: Effective Repository Date:2018-03-23 03/17/2018 EMELINA Misty Primary Insurance:[facility] EMELINA Jay [place] [id number] WILE MCRDUAL COMP HMO* NOT CIPOLLADOB: [facility] [place] CONTPolicy Number: [id number] Hospital 60[address]Eli: [phone] [id number] Repository [phone] () Date:[id number] [address]RK: 03/17/2018 Secondary NOT GIVENUNK Herb Insurance:SELF PAY [facility] Hospital Number: Effective Repository Date:2018-03-17 02/18/2018 EMELINA Jay Primary Insurance:[facility] EMELINA Jay Herb [id number] WILE MCRDUAL COMP HMO* NOT CIPOLLADOB: [facility] [place] CONTPolicy Number: [id number] Hospital 05[address]Uxp: [phone] [id number] Repository [phone] () Date:6778-57-80QU [address] [place] [address]XS: 02/18/2018 Secondary NOT GIVENUNK [place] Insurance:SELF PAY [facility] Number: Effective Repository Date:2018-02-15 02/10/2018 EMELINA Jay Primary Insurance:[facility] EMELINA Jay [place] [id number] WILE MCRDUAL COMP HMO* NOT CIPOLLADOB: [place] CONTPolicy Number: [id number] Hospital [address]Keh: [phone] [id number] Repository [phone] () Date:8737-20-84PI [address] [place] [address]HO: 02/10/2018 Secondary NOT GIVENUNK [place] Insurance:SELF PAY [facility] Number: Effective Repository Date:2018-02-10 02/10/2018 EMELINA A Primary EMELINA Jay [place] [id number] WILE Insurance:[facility] CIPOLLADOB: [place] [facility] [id number] Hospital 224[address]Snc: (540) Number: Repository [phone] () [id number] Date:2066-58-30OC 07 [address] [id number]: 02/10/2018 Secondary NOT GIVENUNK [place] Insurance:SELF PAY [facility] Number: Effective Repository Date:2018-02-10 02/10/2018 EMELINA Jay Primary EMELINA Jay [place] [id number] WILE Insurance[place] [place] [place] CIPOLLADOB[place]IN [facility] [id number] [address]Sfd: (540) Number: Repository [phone] () [id number] Date:[id number] [address] [id number]: 02/10/2018 Secondary NOT GIVENUNK [place] Insurance:SELF PAY [facility] Number: Effective Repository Date:2018-02-10 02/10/2018 EMELINA A Primary Insurance:[facility] EMELINA Jay Herb [id number] WILE MCRDUAL COMP O* NOT CIPOLLADOB: [place] CONTPolicy Number: [id number] [address]Jqj: (637) [id number] Repository [phone] () Date:[id number] [address] [place] [id number]: 02/10/2018 Secondary NOT GIVENUNK [place] Insurance:SELF PAY [facility] Number: Effective Repository Date:2018-02-10 02/10/2018 EMELINA A Primary Insurance:[facility] EMELINA [place] [id number] WILE MCRDUAL COMP HMO* NOT CIPOLLADOB: [facility] [place] [facility] Number: [id number] [address]Pav: [phone] [id number] Repository [phone] () Date:[id number] [address] [place] [id number]: 02/10/2018 Secondary NOT GIVENUNK [place] Insurance:SELF PAY [facility] Number: Effective Repository Date:2018-02-10 02/10/2018 EMELINA Jay Primary EMELINA [place] [id number] WILE Insurance:[facility] CIPOLLADOB: [place] *IN NETWORK[employer] [id number] [address]Muq: (540) Number: Repository [phone] () [id number] Date:[id number] [address] [place] [id number]: 02/10/2018 Secondary NOT GIVENUNK [place] Insurance:SELF PAY [facility] Number: Effective Repository Date:2018-02-10
== END ==
PROVIDERS: Family Provider Family Medicine; PCP Family Medicine; Visit Provider Family Medicine
DX: Z00.00 Encounter for general adult medical examination without abnormal findings (principal)
CPT/HCPCS: 36415

== ENCOUNTER → 2019-03-01 08:20 | Outpatient (CLI) | payer MEDICARE, SELFPAY ==
[2018-07-05 09:22] VITALS: BMI 28.7
[2019-03-01 10:43] LABS: Anion Gap 4 (5-15); BUN 11 mg/dL (7-18); Calcium,Total 8.9 mg/dL (8.5-10.1); Chloride 108 mmol/L (98-107); Cholesterol 152 mg/dL (200); Creatinine, Serum 0.85 mg/dL (0.55-1.02); EST Glomerular Filtration Rate 70 mL/min (>60); Est Glom Filt Rate - Afr Amer 85 mL/min (>60); Glucose 98 mg/dL (74-106); High Density Lipoprotein 40 mg/dL; Potassium 4.4 mmol/L (3.5-5.1); Sodium Level 140 mmol/L (136-145); Triglycerides 200 mg/dL; Very Low Density Lipoprotein 40 mg/dL (5-40)
== END ==
PROVIDERS: Family Provider Family Medicine; PCP Family Medicine; Referring Provider Family Medicine; Visit Provider Family Medicine
DX: I10 Essential (primary) hypertension (principal)
CPT/HCPCS: 36415; 80048; 80061

== ENCOUNTER → 2019-03-16 12:08 | Outpatient (CLI) | payer MEDICARE, SELFPAY ==
[2018-07-05 09:22] VITALS: BMI 28.7
--- NOTE | 2019-03-16 12:14 | RAD_ITS ---
STUDY: X-RAY - CERVICAL SPINE REASON FOR EXAM: Female, 73 years old. Neck pain. Shoulder pain TECHNIQUE: 5 view(s) of the cervical spine were obtained. COMPARISON: CT February 10, 2018 FINDINGS: Normal anterior atlantoaxial articulation. Normal odontoid process. There is straightening of the normal cervical lordosis. There is grade 1 anterior listhesis at C4-5 and C5-6. There is diffuse demineralization of the cervical spine. Normal disc space heights. There is facet and uncovertebral spurring with foraminal narrowing. The soft tissue structures are unremarkable. RAD/Cerv Spine 4 or 5 Views IMPRESSION: Cervical spondylosis. Electronically Signed: Nathaniel Condon MD at 18:01 EDT , Service support ,
== END ==
PROVIDERS: Family Provider Family Medicine; PCP Family Medicine; Referring Provider Family Medicine; Visit Provider Family Medicine
DX: M54.2 Cervicalgia (principal)
CPT/HCPCS: 72050

== ENCOUNTER → 2019-09-05 10:41 | Outpatient (CLI) | payer MEDICARE, SELFPAY ==
[2018-07-05 09:22] VITALS: BMI 28.7
[2019-09-05 12:38] LABS: Anion Gap 5 (5-15); BUN 15 mg/dL (7-18); BUN/Creat Ratio 16.4 RATIO (10-20); Calcium,Total 9.1 mg/dL (8.5-10.1); Chloride 113 mmol/L (98-107); Cholesterol 164 mg/dL (200); Creatinine, Serum 0.92 mg/dL (0.55-1.02); EST Glomerular Filtration Rate 64 mL/min (>60); Est Glom Filt Rate - Afr Amer 78 mL/min (>60); Glucose 96 mg/dL (74-106); High Density Lipoprotein 42 mg/dL; Potassium 4.2 mmol/L (3.5-5.1); Sodium Level 143 mmol/L (136-145); Triglycerides 153 mg/dL; Very Low Density Lipoprotein 31 mg/dL (5-40)
== END ==
PROVIDERS: PCP Family Medicine; Referring Provider Family Medicine; Visit Provider Family Medicine
DX: E78.5 Hyperlipidemia, unspecified (principal); I10 Essential (primary) hypertension
CPT/HCPCS: 36415; 80048; 80061

== ENCOUNTER → 2020-09-17 09:50 | Outpatient (CLI) | payer MEDICARE, SELFPAY ==
[2018-07-05 09:22] VITALS: BMI 28.7
[2020-09-17 13:24] LABS: Anion Gap 6 (5-15); BUN 15 mg/dL (7-18); Calcium,Total 9.1 mg/dL (8.5-10.1); Chloride 109 mmol/L (98-107); Cholesterol 162 mg/dL (200); Creatinine, Serum 0.94 mg/dL (0.55-1.02); EST Glomerular Filtration Rate 62 mL/min (>60); Est Glom Filt Rate - Afr Amer 75 mL/min (>60); Glucose 96 mg/dL (74-106); High Density Lipoprotein 48 mg/dL; Potassium 4.2 mmol/L (3.5-5.1); Sodium Level 141 mmol/L (136-145); Triglycerides 126 mg/dL; Very Low Density Lipoprotein 25 mg/dL (5-40)
== END ==
PROVIDERS: PCP Family Medicine; Visit Provider Family Medicine
DX: I10 Essential (primary) hypertension (principal)
CPT/HCPCS: 36415; 80048; 80061

== ENCOUNTER → 2021-02-15 09:32 | Outpatient (CLI) | payer MEDICARE, SELFPAY ==
[2018-07-05 09:22] VITALS: BMI 28.7
[2021-02-15 12:37] LABS: Anion Gap 4 (5-15); BUN 13 mg/dL (7-18); Calcium,Total 9.5 mg/dL (8.5-10.1); Chloride 108 mmol/L (98-107); Cholesterol 158 mg/dL (200); Creatinine, Serum 0.82 mg/dL (0.55-1.02); EST Glomerular Filtration Rate 73 mL/min (>60); Est Glom Filt Rate - Afr Amer 88 mL/min (>60); Glucose 94 mg/dL (74-106); High Density Lipoprotein 49 mg/dL; Potassium 4.3 mmol/L (3.5-5.1); Sodium Level 139 mmol/L (136-145); Triglycerides 106 mg/dL; Very Low Density Lipoprotein 21 mg/dL (5-40)
[2021-02-15 12:43] LABS: Vitamin D,25 Hydroxy 30.5 ng/mL
== END ==
PROVIDERS: PCP Family Medicine; Visit Provider Family Medicine
DX: I10 Essential (primary) hypertension (principal); E55.9 Vitamin D deficiency, unspecified
CPT/HCPCS: 36415; 80048; 80061; 82306

== ENCOUNTER → 2021-07-08 18:04 | Outpatient (CLI) | payer MEDICARE, SELFPAY | PROVIDERS: PCP Family Medicine; Visit Provider Family Medicine | DX: U07.1 COVID-19 (principal) | CPT/HCPCS: 87635; U0005; U0003 ==

== ENCOUNTER → 2022-03-13 | Outpatient (CLI) | payer MEDICARE, SELFPAY ==
[2022-03-13 12:31] LABS: Anion Gap 7 (5-15); BUN 11 mg/dL (7-18); BUN/Creat Ratio 12.4 RATIO (10-20); Calcium,Total 9.1 mg/dL (8.5-10.1); Chloride 105 mmol/L (98-107); Cholesterol 203 mg/dL (200); Creatinine, Serum 0.89 mg/dL (0.55-1.02); EST Glomerular Filtration Rate 66 mL/min (>60); Est Glom Filt Rate - Afr Amer 80 mL/min (>60); Glucose 99 mg/dL (74-106); High Density Lipoprotein 46 mg/dL; Potassium 3.9 mmol/L (3.5-5.1); Sodium Level 139 mmol/L (136-145); Triglycerides 143 mg/dL; Very Low Density Lipoprotein 29 mg/dL (5-40)
== END | disposition home or self-care (01) ==
LOC: MFPLAB 10:50
PROVIDERS: PCP Family Medicine; Referring Provider Family Medicine; Visit Provider Family Medicine
DX: Z00.00 Encounter for general adult medical examination without abnormal findings (principal)
CPT/HCPCS: 36415; 80048; 80061

== ENCOUNTER → 2022-09-15 | Outpatient (CLI) | payer MEDICARE, SELFPAY ==
[2022-09-15 12:55] LABS: Anion Gap 7 (5-15); BUN 18 mg/dL (7-18); BUN/Creat Ratio 20.3 RATIO (10-20); Calcium,Total 9.4 mg/dL (8.5-10.1); Chloride 106 mmol/L (98-107); Cholesterol 210 mg/dL (200); Creatinine, Serum 0.89 mg/dL (0.55-1.02); EST Glomerular Filtration Rate 66 mL/min (>60); Est Glom Filt Rate - Afr Amer 80 mL/min (>60); Glucose 98 mg/dL (74-106); High Density Lipoprotein 54 mg/dL; Potassium 4.1 mmol/L (3.5-5.1); Sodium Level 140 mmol/L (136-145); Triglycerides 186 mg/dL; Very Low Density Lipoprotein 37 mg/dL (5-40)
== END | disposition home or self-care (01) ==
LOC: MFPLAB 10:08
PROVIDERS: PCP Family Medicine; Referring Provider Family Medicine; Visit Provider Family Medicine
DX: I10 Essential (primary) hypertension (principal)
CPT/HCPCS: 36415; 80048; 80061

== ENCOUNTER → 2023-03-23 | Outpatient (CLI) | payer MEDICARE, SELFPAY ==
[2023-03-23 18:28] LABS: Anion Gap 6 (5-15); BUN 11 mg/dL (7-18); BUN/Creat Ratio 12.8 RATIO (10-20); Calcium,Total 9.5 mg/dL (8.5-10.1); Chloride 106 mmol/L (98-107); Cholesterol 288 mg/dL (200); Creatinine, Serum 0.86 mg/dL (0.55-1.02); EST Glomerular Filtration Rate 68 mL/min (>60); Est Glom Filt Rate - Afr Amer 83 mL/min (>60); Glucose 121 mg/dL (74-106); High Density Lipoprotein 34 mg/dL; Potassium 3.9 mmol/L (3.5-5.1); Sodium Level 141 mmol/L (136-145); Triglycerides 420 mg/dL
== END | disposition home or self-care (01) ==
LOC: MFPLAB 16:23
PROVIDERS: PCP Family Medicine; Visit Provider Family Medicine
DX: I10 Essential (primary) hypertension (principal)
CPT/HCPCS: 36415; 80048; 80061

== ENCOUNTER → 2023-07-09 | Outpatient (CLI) | payer MEDICARE, SELFPAY ==
[2023-07-09 12:42] LABS: Anion Gap 4 (5-15); BUN 9 mg/dL (7-18); BUN/Creat Ratio 11.8 RATIO (10-20); Calcium,Total 9.3 mg/dL (8.5-10.1); Chloride 109 mmol/L (98-107); Cholesterol 308 mg/dL (200); Creatinine, Serum 0.76 mg/dL (0.55-1.02); EST Glomerular Filtration Rate 78 mL/min (>60); Est Glom Filt Rate - Afr Amer 95 mL/min (>60); Glucose 92 mg/dL (74-106); High Density Lipoprotein 43 mg/dL; Potassium 3.9 mmol/L (3.5-5.1); Sodium Level 140 mmol/L (136-145); Triglycerides 218 mg/dL; Very Low Density Lipoprotein 44 mg/dL (5-40)
== END | disposition home or self-care (01) ==
LOC: MFPLAB 10:57
PROVIDERS: PCP Family Medicine; Visit Provider Family Medicine
DX: E78.5 Hyperlipidemia, unspecified (principal); R73.9 Hyperglycemia, unspecified
CPT/HCPCS: 36415; 80048; 80061

== ENCOUNTER → 2024-05-30 | Outpatient (CLI) | payer MEDICARE, SELFPAY ==
[2024-05-30 13:07] LABS: Anion Gap 7 (5-15); BUN 15 mg/dL (7-18); BUN/Creat Ratio 15.8 RATIO (10-20); Calcium,Total 9.6 mg/dL (8.5-10.1); Chloride 108 mmol/L (98-107); Cholesterol 276 mg/dL (200); Creatinine, Serum 0.95 mg/dL (0.55-1.02); EST Glomerular Filtration Rate 61 mL/min (>60); Est Glom Filt Rate - Afr Amer 74 mL/min (>60); Glucose 95 mg/dL (74-106); High Density Lipoprotein 40 mg/dL; Sodium Level 140 mmol/L (136-145); Triglycerides 219 mg/dL; Very Low Density Lipoprotein 44 mg/dL (5-40)
== END | disposition home or self-care (01) ==
PROVIDERS: PCP Family Medicine; Visit Provider Family Medicine
DX: E78.5 Hyperlipidemia, unspecified (principal); R73.9 Hyperglycemia, unspecified
CPT/HCPCS: 36415; 80048; 80061

== ENCOUNTER → 2024-09-27 | Outpatient (CLI) | payer MEDICARE, SELFPAY ==
[2024-09-27 13:50] LABS: ALB/GLOB Ratio 1.1 RATIO (0.9-2.4); AST(SGOT) 24 U/L (15-37); Alanine Aminotransfer ALT/SGPT 57 U/L (13-56); Albumin, Serum 4.1 g/dL (3.2-5.0); Alkaline Phosphatase 59 U/L (45-117); Anion Gap 7 (5-15); BUN 13 mg/dL (7-18); BUN/Creat Ratio 13.8 RATIO (10-20); Calcium,Total 9.7 mg/dL (8.5-10.1); Chloride 107 mmol/L (98-107); Cholesterol 199 mg/dL (200); Creatinine, Serum 0.94 mg/dL (0.55-1.02); EST Glomerular Filtration Rate 61 mL/min (>60); Est Glom Filt Rate - Afr Amer 74 mL/min (>60); Globulin 3.8 g/dL (2.2-4.2); Glucose 97 mg/dL (74-106); High Density Lipoprotein 47 mg/dL; Potassium 4.1 mmol/L (3.5-5.1); Protein, Total 7.9 g/dL (6.4-8.2); Sodium Level 138 mmol/L (136-145); Triglycerides 202 mg/dL; Very Low Density Lipoprotein 40 mg/dL (5-40)
== END | disposition home or self-care (01) ==
LOC: MFPLAB 10:09
PROVIDERS: PCP Family Medicine; Referring Provider Family Medicine; Visit Provider Family Medicine
DX: E78.5 Hyperlipidemia, unspecified (principal)
CPT/HCPCS: 36415; 80053; 80061

== ENCOUNTER → 2025-05-22 | Outpatient (CLI) | payer MEDICARE, SELFPAY ==
[2025-05-22 12:08] LABS: AST(SGOT) 22 U/L (<=31); Alanine Aminotransfer ALT/SGPT 29 U/L (<=34); Albumin, Serum 4.5 g/dL (3.4-4.8); Alkaline Phosphatase 59 U/L (35-104); Anion Gap 9 (5-15); BUN 11 mg/dL (4-19); BUN/Creat Ratio 12.4 RATIO (10-20); Calcium,Total 9.9 mg/dL (7.6-11.0); Carbon Dioxide 26.5 mmol/L (21.0-32.0); Chloride 105 mmol/L (98-108); Cholesterol 300 mg/dL (<=200); Globulin 3.1 g/dL (2.2-4.2); Glucose 107 mg/dL (70-99); Low Density Lipoprotein Calc. 198 mg/dL; Potassium 5.0 mmol/L (3.3-5.1); Triglycerides 309 mg/dL; Very Low Density Lipoprotein 62 mg/dL (5-40); Vitamin B12 1423 pg/mL (180-914); Vitamin D,25 Hydroxy 49.2 ng/mL (30-100); cholesterol:hdl ratio screen 7.43
== END | disposition home or self-care (01) ==
LOC: MFPLAB 09:17
PROVIDERS: PCP Family Medicine; Visit Provider Family Medicine
DX: E78.5 Hyperlipidemia, unspecified (principal); E55.9 Vitamin D deficiency, unspecified
CPT/HCPCS: 36415; 80053; 80061; 82306; 82607